=== PATIENT | female | born 1960 | race Two or more races ===

== ENCOUNTER 2016-09-24 02:25 | Inpatient (IN) | payer MEDICAID ==
[~2016-09-24] VITALS: Ht 162.6 cm; Wt 71.0 kg
[2016-09-24] VITALS (8 sets, daily range): BP systolic 97–122; BP diastolic 60–81
[2016-09-24] MEDS ORDERED: NITROGLYCERIN 0.4 MG SL TAB SL PRN ×2 (03:45→06:45)
[2016-09-24] MEDS ORDERED: ASPirin 81 mg TAB PO ONE (03:45)
[2016-09-24] MEDS ORDERED: MORPHINE SULF INJ 2 MG/ML SYRINGE 1ML IV ONE (03:45)
[2016-09-24] MEDS ORDERED: MORPHINE SULFATE 4 MG/ML SYRG IV ONE ×2 (03:45)
[2016-09-24 03:57] LABS: Basophils # (auto) 0 uL; Basophils % (auto) 0.6 % (0.0-2.0); DEFINITIVE VIEW TRANSMISSION; Eosinophils # (auto) 0.2 uL; Eosinophils % (auto) 3.7 % (0.0-7.0); Hematocrit 25.8 % (36.0-46.0); Hemoglobin 8.2 g/dL (12.2-16.2); Lymphocytes % (auto) 45.3 % (10.0-50.0); Mean Corpuscular Hemoglobin 24.9 pg (28.0-32.0); Mean Corpuscular Hgb Conc. 31.9 g/dL (32.0-36.0); Mean Platelet Volume 8.1 fL (7.4-10.4); Monocytes # (auto) 0.5 uL; Monocytes % (auto) 10.7 % (0.0-12.0); Neutrophils # (auto) 1.7 uL; Neutrophils % (auto) 39.7 % (37.0-80.0); Platelet Count (auto) 354 10^3/uL (140-450); White Blood Cell 4.4 10^3/uL (4.4-10.8)
[2016-09-24 03:59] LABS: Red Cell Distribution Width 21.4 % (11.6-16.0)
[2016-09-24 04:13] LABS: INR 0.9 (0.9-1.15); Partial Thromboplastin Time 25.9 sec (22.64-33.71); Prothrombin Time 9.8 sec (9.37-12.3)
[2016-09-24 04:20] LABS: Albumin 3.1 g/dL (3.4-5.0); Anion Gap 11 (5-15); Aspartate Aminotransferase 20 U/L (15-37); BUN/Creatinine Ratio 17.2; Blood Urea Nitrogen 21 mg/dL (7-18); Calcium 7.4 mg/dL (8.5-10.1); Carbon Dioxide 21 mmol/L (21-32); Chloride 112 mmol/L (98-107); GFR African American 59 mL/min; GFR Non-African American 49 mL/min; Glucose 80 mg/dL (74-106); Sodium 144 mmol/L (136-145)
[2016-09-24 04:22] LABS: Alkaline Phosphatase 74 U/L (45-117); Bilirubin, Total 0.3 mg/dL (0.2-1.0); Total Protein 6.4 g/dL (6.4-8.2)
[2016-09-24 04:32] LABS: B-Type Natriuretic Peptide 26.1 pg/mL (0-100); Temperature: 22.3 C (20.0-25.0)
[2016-09-24 04:34] LABS: Anisocytosis Slight; Hypochromia Moderate; Microcytosis Slight; Platelet Estimate Adequate
[2016-09-24] MEDS ORDERED: ONDANSETRON HCL 4 MG/2 ML VIAL IV ONE (05:00)
[2016-09-24] MEDS ORDERED: HYDROmorphone HCL 2 MG/ML VL IV ONE (05:00)
[2016-09-24] MEDS ORDERED: LEV100T PO (05:25)
[2016-09-24] MEDS ORDERED: ALPR1TAB7 PO (05:25)
[2016-09-24] MEDS ORDERED: METH2.5T3 PO (05:29)
[2016-09-24] MEDS ORDERED: diphenhdrAMINE HCL 50 MG/1 ML VL IV ONE (06:30)
[2016-09-24] MEDS ORDERED: MORPHINE SULF INJ 2 MG/ML SYRINGE 1ML IV PRN (06:45)
[2016-09-24] MEDS ORDERED: TEMAZEPAM 15 MG CAP PO PRN (06:45)
[2016-09-24] MEDS ORDERED: ACETAMINOPHEN 325 MG TAB PO PRN (06:45)
[2016-09-24] MEDS ORDERED: ONDANSETRON HCL 4 MG/2 ML VIAL IV PRN (06:45)
[2016-09-24] MEDS ORDERED: LEVOTHYROXINE SODIUM 100 MCG TAB PO SCH ×2 (07:00)
[2016-09-24] MEDS: SODIUM CHLORIDE 0.9% 1,000 ML IV SCH ×2 (07:06→22:14)
[2016-09-24] MEDS: LEVOTHYROXINE SODIUM 100 MCG TAB PO SCH (07:26)
[2016-09-24] MEDS ORDERED: FOLITAB22 PO (09:49)
[2016-09-24] MEDS ORDERED: ENOXAPARIN SOD 40 MG/0.4 ML SYRINGE SC SCH (10:00)
[2016-09-24 12:27] LABS: Hematocrit 26.8 % (36.0-46.0); Hemoglobin 8.5 g/dL (12.2-16.2)
[2016-09-24] MEDS: FAMOTIDINE 20 MG TAB PO SCH ×2 (15:27→21:45)
[2016-09-24] MEDS: ASPirin 81 mg TAB PO SCH (15:27)
[2016-09-24] MEDS: MORPHINE SULF INJ 2 MG/ML SYRINGE 1ML IV PRN (22:04)
[2016-09-25 05:00] VITALS: BP 90/56
[2016-09-25] MEDS: LEVOTHYROXINE SODIUM 100 MCG TAB PO SCH (06:26)
[2016-09-25 07:06] LABS: Basophils # (auto) 0 uL; Basophils % (auto) 0.5 % (0.0-2.0); DEFINITIVE VIEW TRANSMISSION; Eosinophils # (auto) 0.1 uL; Eosinophils % (auto) 3.7 % (0.0-7.0); Hematocrit 30.5 % (36.0-46.0); Hemoglobin 9.8 g/dL (12.2-16.2); Lymphocytes # (auto) 1.9 uL; Lymphocytes % (auto) 47.9 % (10.0-50.0); Mean Corpuscular Hemoglobin 25.7 pg (28.0-32.0); Mean Corpuscular Hgb Conc. 32.2 g/dL (32.0-36.0); Mean Corpuscular Volume 79.7 fL (80.0-100.0); Mean Platelet Volume 8.3 fL (7.4-10.4); Monocytes # (auto) 0.3 uL; Neutrophils # (auto) 1.6 uL; Neutrophils % (auto) 40.9 % (37.0-80.0); Platelet Count (auto) 326 10^3/uL (140-450); White Blood Cell 3.9 10^3/uL (4.4-10.8)
[2016-09-25 07:16] LABS: Red Cell Distribution Width 20.5 % (11.6-16.0)
[2016-09-25 08:00] VITALS: BP 97/60
[2016-09-25 08:04] VITALS: BP 97/60
[2016-09-25 08:09] LABS: Albumin 3.3 g/dL (3.4-5.0); BUN/Creatinine Ratio 13.6; Bilirubin, Total 0.2 mg/dL (0.2-1.0); Calcium 7.9 mg/dL (8.5-10.1); Potassium 4.2 mmol/L (3.5-5.1); Total Protein 6.2 g/dL (6.4-8.2)
[2016-09-25 08:38] LABS: Anisocytosis Moderate; Burr Cells FEW; Hypochromia Moderate; Platelet Estimate Adequate; Tear Drop Cells FEW
[2016-09-25] MEDS: FAMOTIDINE 20 MG TAB PO SCH (10:00)
[2016-09-25] MEDS: ASPirin 81 mg TAB PO SCH (10:00)
[2016-09-25 11:35] VITALS: BP 128/78
[2016-09-25] MEDS ORDERED: DOCUSATE SOD 100 MG CAP PO ONE (13:00)
[2016-09-25] MEDS ORDERED: FERROUS SULFATE 325 MG TAB PO ONE (13:00)
[2016-09-25] MEDS: MORPHINE SULF INJ 2 MG/ML SYRINGE 1ML IV PRN (14:33)
[2016-09-25] MEDS: SODIUM CHLORIDE 0.9% 1,000 ML IV SCH (15:51)
[2016-09-25 16:19] VITALS: BP 101/71
[2016-09-25] MEDS ORDERED: FER325T PO (17:45)
[2016-09-25] MEDS ORDERED: DOCU100C8 PO (17:45)
[2016-09-25 18:28] VITALS: BP 101/71
[2016-09-25] MEDS ORDERED: DOCUSATE SOD 100 MG CAP PO SCH (22:00)
[2016-09-26] MEDS ORDERED: FERROUS SULFATE 325 MG TAB PO SCH (10:00)
== END 2016-09-25 19:48 | disposition home or self-care (01) | DRG 198 ==
LOC: ER 02:25 → EDBD 02:25 → TELE 02:26 → TELE-E-ADS 08:12 → TELE-CENTR 10:17
PROVIDERS: ADMIT Nurse Practitioner; ATTEND Nurse Practitioner Acute Care
PROC: 30233N1 Transfusion of Nonautologous Red Blood Cells into Peripheral Vein, Percutaneous Approach (ICD-10-PCS; principal; 2016-09-24)
DX: R07.9 Chest pain, unspecified (principal); I25.2 Old myocardial infarction; E44.1 Mild protein-calorie malnutrition; Z86.73 Personal history of transient ischemic attack (TIA), and cerebral infarction without residual deficits; E03.9 Hypothyroidism, unspecified; D50.9 Iron deficiency anemia, unspecified; G89.29 Other chronic pain; M06.9 Rheumatoid arthritis, unspecified; N18.9 Chronic kidney disease, unspecified; Z85.42 Personal history of malignant neoplasm of other parts of uterus; F41.9 Anxiety disorder, unspecified; Z88.8 Allergy status to other drugs, medicaments and biological substances; Z71.89 Other specified counseling; Z68.26 Body mass index [BMI] 26.0-26.9, adult; Z90.710 Acquired absence of both cervix and uterus
CPT/HCPCS: 36415; 36430; 71010; 78452; 80053; 82270; 82728; 83540; 83550; 83880; 84443; 84484; 84702; 85014; 85018; 85025; 85379; 85610; 85730; 86850; 86900; 86901; 86920; 93005; 93017; 93306; 96374; 96375; J2405

== ENCOUNTER 2017-07-08 15:33 | Emergency (ER) | payer MEDICAID ==
[~2017-07-08] VITALS: Ht 165.1 cm; Wt 68.9 kg
[~2017-07-08 15:33] MED LIST: ALPR1TAB7 PO; DOCU100C8 PO; FER325T PO; FOLITAB22 PO; LEV100T PO; METH2.5T3 PO
[2017-07-08 15:45] VITALS: BP 112/76
== END 2017-07-08 16:58 | disposition left against medical advice (07) ==
LOC: ER 15:38
DX: R06.02 Shortness of breath (principal); Z53.21 Procedure and treatment not carried out due to patient leaving prior to being seen by health care provider
CPT/HCPCS: 93005

== ENCOUNTER 2021-12-21 11:50 | Inpatient (IN) | payer MEDICAID ==
[~2021-12-21] VITALS: Ht 165.1 cm; Wt 73.7 kg
[~2021-12-21 11:50] MED LIST changes: +DOCU100C10 PO; -DOCU100C8 PO; +METH2.5T PO; -METH2.5T3 PO
[2021-12-21] MEDS ORDERED: SODIUM CHLORIDE 0.9% 2,000 ML IV ONE (12:30)
[2021-12-21 12:43] LABS: Basophils # (auto) 0 10 ^3/uL (0-0.2); Basophils % (auto) 0.1 % (0.0-2.0); Eosinophils # (auto) 0 10 ^3/uL (0-0.8); White Blood Cell 12.8 10^3/uL (4.4-10.8)
[2021-12-21] MEDS ORDERED: NOREPINEPHRINE 8 MG/250ML KIT 250 ML IV ONE (12:47)
[2021-12-21 12:49] LABS: Hematocrit 25.8 % (36.0-46.0); Hemoglobin 7.8 g/dL (12.2-16.2); Lymphocytes # (auto) 0.7 10 ^3/uL (0.4-5.4); Lymphocytes % (auto) 5.8 % (10.0-50.0); Mean Corpuscular Hemoglobin 29.3 pg (28.0-32.0); Mean Corpuscular Hgb Conc. 30.3 g/dL (32.0-36.0); Mean Corpuscular Volume 96.7 fL (80.0-100.0); Monocytes # (auto) 1.3 10 ^3/uL (0-1.3); Monocytes % (auto) 10.4 % (0.0-12.0); Neutrophils # (auto) 10.7 10 ^3/uL (1.6-8.6); Neutrophils % (auto) 83.7 % (37.0-80.0); Red Blood Cells 2.67 10^6/uL (4.0-5.20); Red Cell Distribution Width 17.5 % (11.8-14.3)
[2021-12-21 12:57] LABS: Albumin 2.2 g/dL (3.4-5.0); Calcium 6.6 mg/dL (8.5-10.1); INR 1.38 (0.9-1.15); Magnesium 2.3 mg/dL (1.6-2.6); Potassium 5.3 mmol/L (3.5-5.1)
[2021-12-21 12:59] LABS: BUN/Creatinine Ratio 25.4
[2021-12-21] MEDS: NOREPINEPHRINE 8 MG/250ML KIT 250 ML IV SCH (12:59)
[2021-12-21 13:02] LABS: Bilirubin, Total 0.5 mg/dL (0.2-1.0); Lactic Acid w/Reflex 2.5 mmol/L (0.4-2.0); Total Protein 3.9 g/dL (6.4-8.2)
[2021-12-21] MEDS ORDERED: SODIUM CHLORIDE 0.9% 1,000 ML IV ONE (14:45)
[2021-12-21] MEDS ORDERED: CALCIUM GLUC 1,000mg/50ml-NS 50 ML IV ONE (14:45)
[2021-12-21] MEDS ORDERED: InsuLIN REG 1unit/0.01ml Soln (100units/ml) IV ONE (14:45)
[2021-12-21] MEDS ORDERED: DEXTROSE (50%) 50ML SYRG IV ONE (14:45)
[2021-12-21] MEDS ORDERED: SODIUM BICARBONATE 8.4 % INJ 50ML VIAL IV ONE (14:45)
[2021-12-21] MEDS ORDERED: LIDOCAINE 1% (LOCAL ANESTH.) PF 5ml SDV ID ONE (17:15)
[2021-12-21] MEDS ORDERED: DOCUSATE SOD 100 MG CAP PO PRN (17:30)
[2021-12-21] MEDS ORDERED: NITROGLYCERIN 0.4 MG SL TAB SL PRN (17:30)
[2021-12-21 17:47] VITALS: BP 86/66
[2021-12-21 18:03] VITALS: BP 92/52
[2021-12-21] MEDS: PHENYLEPHRINE IV 250 ML IV SCH (18:14)
[2021-12-21 19:14] VITALS: BP 112/73
[2021-12-21 19:38] LABS: Urine Bacteria FEW /hpf (None Seen); Urine Blood 2+ /uL (Negative); Urine Mucus FEW (None Seen); Urine WBC 1 /hpf (0 - 5)
[2021-12-21] MEDS: SODIUM CHLOR 0.9% PF (SALINE LOCK) 10ML VIAL/SYR IV SCH (22:00)
[2021-12-21 22:11] LABS: Basophils # (auto) 0 10 ^3/uL (0-0.2); Basophils % (auto) 0.2 % (0.0-2.0); Eosinophils # (auto) 0 10 ^3/uL (0-0.8); Eosinophils % (auto) 0.1 % (0.0-7.0); Hemoglobin 9.7 g/dL (12.2-16.2); Lymphocytes # (auto) 1.8 10 ^3/uL (0.4-5.4); Red Blood Cells 3.33 10^6/uL (4.0-5.20); White Blood Cell 15.8 10^3/uL (4.4-10.8)
[2021-12-21 22:13] LABS: Hematocrit 31.6 % (36.0-46.0); Lymphocytes % (auto) 11.1 % (10.0-50.0); Mean Corpuscular Hgb Conc. 30.6 g/dL (32.0-36.0); Mean Corpuscular Volume 94.8 fL (80.0-100.0); Monocytes % (auto) 6.5 % (0.0-12.0); Neutrophils % (auto) 82.1 % (37.0-80.0); Red Cell Distribution Width 17.2 % (11.8-14.3)
[2021-12-21 22:44] LABS: Free T3 2.14 pg/mL (2.3-4.2); Free T4 (Free Thyroxine) 0.45 ng/dL (0.89-1.76)
[2021-12-22] VITALS (64 sets, daily range): BP systolic 85–124; BP diastolic 42–84
[2021-12-22] MEDS: PHENYLEPHRINE IV 250 ML IV SCH ×3 (01:25→18:30)
[2021-12-22 01:34] LABS: Albumin 2.3 g/dL (3.4-5.0); BUN/Creatinine Ratio 32.5; Potassium 4.2 mmol/L (3.5-5.1)
[2021-12-22 01:37] LABS: Bilirubin, Total 0.6 mg/dL (0.2-1.0); Total Protein 4.3 g/dL (6.4-8.2)
[2021-12-22] MEDS ORDERED: cefTRIAXone 1GM/50ML D5W 50 ML IV ONE (03:45)
[2021-12-22 06:43] LABS: Basophils # (auto) 0 10 ^3/uL (0-0.2); Basophils % (auto) 0.2 % (0.0-2.0); Eosinophils # (auto) 0 10 ^3/uL (0-0.8); Eosinophils % (auto) 0.2 % (0.0-7.0); Hematocrit 29.7 % (36.0-46.0); Hemoglobin 9.3 g/dL (12.2-16.2); Lymphocytes # (auto) 1.8 10 ^3/uL (0.4-5.4); Lymphocytes % (auto) 10.8 % (10.0-50.0); Mean Corpuscular Hemoglobin 29.1 pg (28.0-32.0); Mean Corpuscular Hgb Conc. 31.3 g/dL (32.0-36.0); Mean Corpuscular Volume 93.1 fL (80.0-100.0); Monocytes # (auto) 1.3 10 ^3/uL (0-1.3); Monocytes % (auto) 7.9 % (0.0-12.0); Neutrophils # (auto) 13.3 10 ^3/uL (1.6-8.6); Neutrophils % (auto) 80.9 % (37.0-80.0); Red Blood Cells 3.19 10^6/uL (4.0-5.20); Red Cell Distribution Width 17.4 % (11.8-14.3); White Blood Cell 16.4 10^3/uL (4.4-10.8)
[2021-12-22 07:00] LABS: BUN/Creatinine Ratio 34.5; Calcium 6.8 mg/dL (8.5-10.1); Potassium 3.8 mmol/L (3.5-5.1)
[2021-12-22 07:03] LABS: Bilirubin, Total 0.5 mg/dL (0.2-1.0)
[2021-12-22] MEDS ORDERED: GASTROGRAFIN 120 ML SOL ONE (09:15)
[2021-12-22] MEDS: NOREPINEPHRINE 8 MG/250ML KIT 250 ML IV SCH ×2 (09:52→15:54)
[2021-12-22] MEDS: SODIUM CHLOR 0.9% PF (SALINE LOCK) 10ML VIAL/SYR IV SCH ×2 (09:52→22:34)
[2021-12-22] MEDS ORDERED: SODIUM CHLORIDE 0.9% 1,000 ML IV SCH (12:00)
[2021-12-22] MEDS: MORPHINE SULFATE INJ 2 MG/ml SYRG IV PRN ×2 (12:49→22:15)
[2021-12-22] MEDS ORDERED: ACETAMINOPHEN IV 1000 MG/100ML (10MG/ML) IV ONE (13:30)
[2021-12-22] MEDS ORDERED: PIPERACILLIN-TAZOB 3.375GM 100 ML IV SCH (14:00)
[2021-12-22] MEDS ORDERED: HYDROmorphone HCL 2 MG/ML VL/or syr IV ONE (17:15)
[2021-12-22] MEDS: PIPERACILLIN-TAZOB 2.25GM 50 ML IV SCH ×2 (17:24→23:30)
[2021-12-22] MEDS: D5W/SOD CHL 0.45% 1,000 ML IV SCH (17:24)
[2021-12-23] VITALS (92 sets, daily range): BP systolic 85–114; BP diastolic 44–78
[2021-12-23] MEDS: NOREPINEPHRINE 8 MG/250ML KIT 250 ML IV SCH (01:19)
[2021-12-23] MEDS: PHENYLEPHRINE IV 250 ML IV SCH ×3 (02:50→14:57)
[2021-12-23] MEDS: MORPHINE SULFATE INJ 2 MG/ml SYRG IV PRN ×3 (03:51→20:13)
[2021-12-23] MEDS: D5W/SOD CHL 0.45% 1,000 ML IV SCH ×2 (03:52→13:15)
[2021-12-23 04:08] LABS: Basophils # (auto) 0 10 ^3/uL (0-0.2); Basophils % (auto) 0.4 % (0.0-2.0); Eosinophils # (auto) 0.1 10 ^3/uL (0-0.8); Eosinophils % (auto) 0.9 % (0.0-7.0); Hemoglobin 8.7 g/dL (12.2-16.2); Lymphocytes # (auto) 1.6 10 ^3/uL (0.4-5.4); Lymphocytes % (auto) 17.2 % (10.0-50.0); Mean Corpuscular Hemoglobin 29.6 pg (28.0-32.0); Mean Corpuscular Hgb Conc. 32.2 g/dL (32.0-36.0); Mean Corpuscular Volume 91.7 fL (80.0-100.0); Monocytes # (auto) 0.6 10 ^3/uL (0-1.3); Monocytes % (auto) 6.3 % (0.0-12.0); Neutrophils % (auto) 75.2 % (37.0-80.0); Nucleated Red Blood Cells % 0.1 %; Red Blood Cells 2.94 10^6/uL (4.0-5.20); Red Cell Distribution Width 17.4 % (11.8-14.3); White Blood Cell 9.3 10^3/uL (4.4-10.8)
[2021-12-23 04:13] LABS: Calcium 7.4 mg/dL (8.5-10.1); Potassium 3.6 mmol/L (3.5-5.1)
[2021-12-23 04:17] LABS: BUN/Creatinine Ratio 38.2
[2021-12-23] MEDS: PIPERACILLIN-TAZOB 2.25GM 50 ML IV SCH ×4 (05:52→23:51)
[2021-12-23] MEDS: SODIUM CHLOR 0.9% PF (SALINE LOCK) 10ML VIAL/SYR IV SCH ×2 (07:18→23:13)
[2021-12-23] MEDS ORDERED: SPIR25TA8 PO (09:52)
[2021-12-23] MEDS ORDERED: METO25TA93 PO (09:52)
[2021-12-23] MEDS ORDERED: APIX5TAB PO (09:52)
[2021-12-23] MEDS ORDERED: PERCOT GT (09:52)
[2021-12-23] MEDS ORDERED: PREG-111 PO (09:52)
[2021-12-23] MEDS ORDERED: MIRT-66 OR (09:52)
[2021-12-23] MEDS ORDERED: LEV88T GT (09:52)
[2021-12-23] MEDS ORDERED: FURO20TA3 PO (09:52)
[2021-12-23] MEDS ORDERED: DICL50TA4 PO (10:07)
[2021-12-23] MEDS: ONDANSETRON HCL 4 MG/2 ML VIAL IV PRN (14:13)
[2021-12-23] MEDS: D5W 5% 1,000 ML IV SCH (18:43)
[2021-12-23] MEDS: APIXABAN 5 MG TAB PO SCH ×2 (21:30→23:06)
[2021-12-24] VITALS (39 sets, daily range): BP systolic 83–116; BP diastolic 47–75
[2021-12-24] MEDS ORDERED: ACETAMINOPHEN 325 MG TAB PO PRN (00:15)
[2021-12-24] MEDS: MORPHINE SULFATE INJ 2 MG/ml SYRG IV PRN ×3 (00:32→20:41)
[2021-12-24] MEDS: PHENYLEPHRINE IV 250 ML IV SCH (03:50)
[2021-12-24 03:52] LABS: Basophils # (auto) 0 10 ^3/uL (0-0.2); Eosinophils # (auto) 0.1 10 ^3/uL (0-0.8); Lymphocytes # (auto) 1.7 10 ^3/uL (0.4-5.4); Monocytes # (auto) 0.3 10 ^3/uL (0-1.3)
[2021-12-24 03:53] LABS: Basophils % (auto) 0.2 % (0.0-2.0); Eosinophils % (auto) 2.1 % (0.0-7.0); Hematocrit 23.1 % (36.0-46.0); Hemoglobin 7.6 g/dL (12.2-16.2); Lymphocytes % (auto) 30.8 % (10.0-50.0); Mean Corpuscular Hemoglobin 30.4 pg (28.0-32.0); Monocytes % (auto) 4.8 % (0.0-12.0); Neutrophils # (auto) 3.5 10 ^3/uL (1.6-8.6); Neutrophils % (auto) 62.1 % (37.0-80.0); Red Blood Cells 2.51 10^6/uL (4.0-5.20); Red Cell Distribution Width 17.2 % (11.8-14.3); White Blood Cell 5.7 10^3/uL (4.4-10.8)
[2021-12-24 04:10] LABS: BUN/Creatinine Ratio 17.6; Calcium 7.1 mg/dL (8.5-10.1); Potassium 3.2 mmol/L (3.5-5.1)
[2021-12-24] MEDS: PIPERACILLIN-TAZOB 2.25GM 50 ML IV SCH ×4 (06:42→23:56)
[2021-12-24] MEDS: LEVOTHYROXINE SODIUM 88 MCG TAB PO SCH (06:42)
[2021-12-24] MEDS: ONDANSETRON HCL 4 MG/2 ML VIAL IV PRN (08:15)
[2021-12-24] MEDS: D5W 5% 1,000 ML IV SCH ×2 (08:17→21:34)
[2021-12-24] MEDS: SODIUM CHLOR 0.9% PF (SALINE LOCK) 10ML VIAL/SYR IV SCH ×2 (09:39→21:45)
[2021-12-24 12:08] LABS: Basophils # (auto) 0 10 ^3/uL (0-0.2); Eosinophils # (auto) 0.1 10 ^3/uL (0-0.8); Lymphocytes # (auto) 1.4 10 ^3/uL (0.4-5.4); Monocytes # (auto) 0.2 10 ^3/uL (0-1.3); Nucleated Red Blood Cells % 0.1 %; Red Cell Distribution Width 17.4 % (11.8-14.3); White Blood Cell 5.8 10^3/uL (4.4-10.8)
[2021-12-24 12:10] LABS: Basophils % (auto) 0.2 % (0.0-2.0); Eosinophils % (auto) 1.1 % (0.0-7.0); Hematocrit 25.1 % (36.0-46.0); Hemoglobin 7.9 g/dL (12.2-16.2); Lymphocytes % (auto) 23.6 % (10.0-50.0); Mean Corpuscular Hemoglobin 29.2 pg (28.0-32.0); Mean Corpuscular Hgb Conc. 31.5 g/dL (32.0-36.0); Mean Corpuscular Volume 92.4 fL (80.0-100.0); Monocytes % (auto) 3.6 % (0.0-12.0); Neutrophils # (auto) 4.2 10 ^3/uL (1.6-8.6); Neutrophils % (auto) 71.5 % (37.0-80.0); Red Blood Cells 2.71 10^6/uL (4.0-5.20)
[2021-12-24] MEDS ORDERED: POTASSIUM CHL 20MEQ/100ML 100 ML IV ONE (15:00)
[2021-12-24 20:05] LABS: Basophils # (auto) 0 10 ^3/uL (0-0.2); Basophils % (auto) 0.4 % (0.0-2.0); Hematocrit 26.2 % (36.0-46.0); Hemoglobin 8.3 g/dL (12.2-16.2); Lymphocytes # (auto) 1.5 10 ^3/uL (0.4-5.4); Mean Corpuscular Hgb Conc. 31.6 g/dL (32.0-36.0); Monocytes # (auto) 0.2 10 ^3/uL (0-1.3); Neutrophils # (auto) 2.6 10 ^3/uL (1.6-8.6)
[2021-12-24 20:07] LABS: Eosinophils # (auto) 0.1 10 ^3/uL (0-0.8); Eosinophils % (auto) 1.6 % (0.0-7.0); Lymphocytes % (auto) 34.7 % (10.0-50.0); Mean Corpuscular Volume 91.8 fL (80.0-100.0); Monocytes % (auto) 3.7 % (0.0-12.0); Neutrophils % (auto) 59.6 % (37.0-80.0); Nucleated Red Blood Cells % 0.2 %; Red Blood Cells 2.85 10^6/uL (4.0-5.20); Red Cell Distribution Width 17.5 % (11.8-14.3); White Blood Cell 4.3 10^3/uL (4.4-10.8)
[2021-12-25 01:11] LABS: Basophils # (auto) 0 10 ^3/uL (0-0.2); Basophils % (auto) 0.5 % (0.0-2.0); Eosinophils # (auto) 0.1 10 ^3/uL (0-0.8); Monocytes # (auto) 0.2 10 ^3/uL (0-1.3); Neutrophils # (auto) 2.6 10 ^3/uL (1.6-8.6)
[2021-12-25 01:12] LABS: Eosinophils % (auto) 1.7 % (0.0-7.0); Hematocrit 24.6 % (36.0-46.0); Lymphocytes # (auto) 1.6 10 ^3/uL (0.4-5.4); Lymphocytes % (auto) 35.4 % (10.0-50.0); Mean Corpuscular Hemoglobin 29.9 pg (28.0-32.0); Mean Corpuscular Hgb Conc. 32.4 g/dL (32.0-36.0); Mean Corpuscular Volume 92.1 fL (80.0-100.0); Neutrophils % (auto) 57.4 % (37.0-80.0); Red Blood Cells 2.67 10^6/uL (4.0-5.20); Red Cell Distribution Width 17.7 % (11.8-14.3); White Blood Cell 4.5 10^3/uL (4.4-10.8)
[2021-12-25] MEDS: MORPHINE SULFATE INJ 2 MG/ml SYRG IV PRN ×2 (02:34→08:35)
[2021-12-25] MEDS: ONDANSETRON HCL 4 MG/2 ML VIAL IV PRN (02:47)
[2021-12-25 05:00] VITALS: BP 105/63
[2021-12-25] MEDS: PIPERACILLIN-TAZOB 2.25GM 50 ML IV SCH (06:44)
[2021-12-25] MEDS: LEVOTHYROXINE SODIUM 88 MCG TAB PO SCH (06:45)
[2021-12-25] MEDS: APIXABAN 5 MG TAB PO SCH (08:33)
[2021-12-25] MEDS: SODIUM CHLOR 0.9% PF (SALINE LOCK) 10ML VIAL/SYR IV SCH (08:33)
[2021-12-25 09:00] VITALS: BP 97/63
[2021-12-25] MEDS: D5W 5% 1,000 ML IV SCH (10:48)
[2021-12-25 12:58] VITALS: BP 94/67
[2021-12-25 13:00] VITALS: BP 94/67
[2021-12-25 13:59] LABS: Potassium 3.6 mmol/L (3.5-5.1)
[2021-12-25 14:04] LABS: BUN/Creatinine Ratio 7.2; Calcium 7.3 mg/dL (8.5-10.1)
== END 2021-12-25 14:50 | disposition home or self-care (01) | DRG 247 ==
LOC: ER 11:50 → EDBD 11:50 → TELE 17:31 → ICU WEST 12-22 07:50 → TELE-WESTW 12-24 17:31
PROVIDERS: ADMIT Nurse Practitioner Family; ATTEND Internal Medicine
PROC: 02HV33Z Insertion of Infusion Device into Superior Vena Cava, Percutaneous Approach (ICD-10-PCS; principal; 2021-12-21)
PROC: B548ZZA Ultrasonography of Superior Vena Cava, Guidance (ICD-10-PCS; 2021-12-21)
PROC: 30233N1 Transfusion of Nonautologous Red Blood Cells into Peripheral Vein, Percutaneous Approach (ICD-10-PCS; 2021-12-21)
DX: K56.600 Partial intestinal obstruction, unspecified as to cause (principal); N17.0 Acute kidney failure with tubular necrosis; J96.01 Acute respiratory failure with hypoxia; I95.9 Hypotension, unspecified; I50.9 Heart failure, unspecified; E87.0 Hyperosmolality and hypernatremia; E87.2 Acidosis; E87.5 Hyperkalemia; N39.0 Urinary tract infection, site not specified; E86.1 Hypovolemia; E88.09 Other disorders of plasma-protein metabolism, not elsewhere classified; N18.9 Chronic kidney disease, unspecified; D64.9 Anemia, unspecified; E86.0 Dehydration; E87.6 Hypokalemia; E03.9 Hypothyroidism, unspecified; Z20.822 Contact with and (suspected) exposure to COVID-19; R40.0 Somnolence; M06.9 Rheumatoid arthritis, unspecified; F41.9 Anxiety disorder, unspecified; I25.10 Atherosclerotic heart disease of native coronary artery without angina pectoris; I25.2 Old myocardial infarction; Z82.49 Family history of ischemic heart disease and other diseases of the circulatory system; Z82.5 Family history of asthma and other chronic lower respiratory diseases; Z83.3 Family history of diabetes mellitus; Z86.718 Personal history of other venous thrombosis and embolism; Z86.73 Personal history of transient ischemic attack (TIA), and cerebral infarction without residual deficits; Z90.49 Acquired absence of other specified parts of digestive tract; Z90.710 Acquired absence of both cervix and uterus; Z98.82 Breast implant status; Z98.84 Bariatric surgery status; Z88.5 Allergy status to narcotic agent
CPT/HCPCS: 36415; 36430; 36569; 70450; 71045; 74176; 74250; 80048; 80053; 81001; 82140; 82962; 83605; 83735; 84439; 84443; 84481; 84484; 85025; 85610; 85730; 86850; 86900; 86901; 86920; 87040; 87081; 87086; 93005; 93306; 96365; 96366; 96367; 96375; 99291; G0378; J0131; J0696; J1815; J2405; J2543; J3480

== ENCOUNTER 2021-12-31 12:44 | Inpatient (IN) | payer MEDICAID ==
[2021-12-31] VITALS (12 sets, daily range): BP systolic 89–129; BP diastolic 35–106
[~2021-12-31] VITALS: Ht 170.2 cm; Wt 76.8 kg
[~2021-12-31 12:44] MED LIST changes: +APIX5TAB PO; +DICL50TA4 PO; -FOLITAB22 PO; +FURO20TA3 PO; -LEV100T PO; +LEV88T GT; +METO25TA93 PO; +MIRT-66 OR; +PERCOT GT; +PREG-111 PO; +SPIR25TA8 PO
[2021-12-31] MEDS ORDERED: ACCU-CHEK COMFORT CURVE STRIP VI ONE (14:00)
[2021-12-31 14:31] LABS: Basophils # (auto) 0 10 ^3/uL (0-0.2); Basophils % (auto) 0.1 % (0.0-2.0); Eosinophils # (auto) 0 10 ^3/uL (0-0.8); Hemoglobin 8.2 g/dL (12.2-16.2); Neutrophils % (auto) 83.9 % (37.0-80.0)
[2021-12-31 14:33] LABS: Eosinophils % (auto) 0.1 % (0.0-7.0); Hematocrit 26.9 % (36.0-46.0); Lymphocytes # (auto) 0.8 10 ^3/uL (0.4-5.4); Lymphocytes % (auto) 8.2 % (10.0-50.0); Mean Corpuscular Hemoglobin 29.7 pg (28.0-32.0); Mean Corpuscular Hgb Conc. 30.3 g/dL (32.0-36.0); Mean Corpuscular Volume 97.9 fL (80.0-100.0); Monocytes # (auto) 0.8 10 ^3/uL (0-1.3); Monocytes % (auto) 7.7 % (0.0-12.0); Neutrophils # (auto) 8.5 10 ^3/uL (1.6-8.6); Red Blood Cells 2.75 10^6/uL (4.0-5.20); Red Cell Distribution Width 19.7 % (11.8-14.3); White Blood Cell 10.1 10^3/uL (4.4-10.8)
[2021-12-31] MEDS ORDERED: NOREPINEPHRINE 8 MG/250ML KIT 250 ML IV ONE (14:33)
[2021-12-31] MEDS: NOREPINEPHRINE 8 MG/250ML KIT 250 ML IV SCH (14:38)
[2021-12-31 14:51] LABS: Albumin 1.6 g/dL (3.4-5.0); BUN/Creatinine Ratio 13.7; Calcium 6.6 mg/dL (8.5-10.1); Potassium 4.6 mmol/L (3.5-5.1)
[2021-12-31 14:54] LABS: Bilirubin, Total 0.4 mg/dL (0.2-1.0); Total Protein 3.8 g/dL (6.4-8.2)
[2021-12-31 15:22] LABS: Urine Bacteria MOD /hpf (None Seen); Urine Blood Negative /uL (Negative); Urine Hyaline Cast MANY /lpf (0 - 2); Urine Mucus FEW (None Seen); Urine Specific Gravity 1.017 (1.001-1.035); Urine WBC 3 /hpf (0 - 5)
[2021-12-31] MEDS ORDERED: DexAMETHasone SOD PHOS 4 MG/1ML SDV INJ IV ONE (16:00)
[2021-12-31] MEDS ORDERED: D5W/SOD CHLO 0.9% 1,000 ML IV ONE (16:00)
[2021-12-31] MEDS ORDERED: LEVOTHYROXINE SODIUM 100 MCG/5 ML INJ IV ONE (16:00)
[2021-12-31] MEDS ORDERED: SODIUM CHLORIDE 0.9% 1,000 ML IV ONE (16:00)
[2021-12-31] MEDS ORDERED: NITROGLYCERIN 0.4 MG SL TAB SL PRN (18:00)
[2021-12-31] MEDS: PHENYLEPHRINE IV 250 ML IV SCH (18:01)
[2021-12-31] MEDS: SODIUM CHLORIDE 0.9% 1,000 ML IV SCH (18:57)
[2021-12-31 19:49] LABS: Protein, Urine 26.6 mg/dL (0.0-11.9)
[2021-12-31] MEDS: APIXABAN 5 MG TAB PO SCH (23:08)
[2022-01-01] VITALS (79 sets, daily range): BP systolic 46–156; BP diastolic 10–78
[2022-01-01] MEDS: NOREPINEPHRINE 8 MG/250ML KIT 250 ML IV SCH ×3 (00:08→20:36)
[2022-01-01] MEDS: PHENYLEPHRINE IV 250 ML IV SCH ×3 (01:35→18:15)
[2022-01-01 04:02] LABS: Basophils # (auto) 0 10 ^3/uL (0-0.2); Basophils % (auto) 0.1 % (0.0-2.0); Eosinophils # (auto) 0 10 ^3/uL (0-0.8); Hematocrit 25.8 % (36.0-46.0); Hemoglobin 8.1 g/dL (12.2-16.2); Lymphocytes # (auto) 1.1 10 ^3/uL (0.4-5.4); Lymphocytes % (auto) 15.2 % (10.0-50.0); Mean Corpuscular Hemoglobin 29.9 pg (28.0-32.0); Mean Corpuscular Hgb Conc. 31.6 g/dL (32.0-36.0); Mean Corpuscular Volume 94.9 fL (80.0-100.0); Monocytes # (auto) 0.8 10 ^3/uL (0-1.3); Neutrophils # (auto) 5.2 10 ^3/uL (1.6-8.6); Neutrophils % (auto) 73.7 % (37.0-80.0); Nucleated Red Blood Cells % 0.2 %; Red Blood Cells 2.72 10^6/uL (4.0-5.20); Red Cell Distribution Width 19.8 % (11.8-14.3)
[2022-01-01 04:20] LABS: Albumin 1.7 g/dL (3.4-5.0); Calcium 6.8 mg/dL (8.5-10.1); Potassium 4.6 mmol/L (3.5-5.1)
[2022-01-01 04:24] LABS: BUN/Creatinine Ratio 15.5; Bilirubin, Total 0.4 mg/dL (0.2-1.0); Total Protein 3.9 g/dL (6.4-8.2)
[2022-01-01] MEDS: SODIUM CHLORIDE 0.9% 1,000 ML IV SCH ×2 (04:29→14:17)
[2022-01-01] MEDS: LEVOTHYROXINE SODIUM 50 MCG TAB PO SCH (06:32)
[2022-01-01] MEDS: APIXABAN 5 MG TAB PO SCH (10:24)
[2022-01-01] MEDS: MORPHINE SULFATE INJ 2 MG/ml SYRG IV PRN (10:25)
[2022-01-01 11:23] LABS: Lactic Acid w/Reflex 3.9 mmol/L (0.4-2.0)
[2022-01-01] MEDS ORDERED: traMADol HCL 50 MG TAB PO PRN (13:30)
[2022-01-01] MEDS ORDERED: PANTOPRAZOLE 40 MG/10 ML VIAL INJ IV ONE (13:30)
[2022-01-01] MEDS ORDERED: cefTRIAXone 1GM/50ML D5W 50 ML IV ONE (13:45)
[2022-01-01] MEDS: ALBUMIN 25% 50 ML IV SCH ×2 (14:07→20:35)
[2022-01-01] MEDS: ONDANSETRON HCL 4 MG/2 ML VIAL IV PRN (19:45)
[2022-01-02] VITALS (86 sets, daily range): BP systolic 93–133; BP diastolic 45–90
[2022-01-02] MEDS: PHENYLEPHRINE IV 250 ML IV SCH ×3 (02:35→19:15)
[2022-01-02] MEDS: MORPHINE SULFATE INJ 2 MG/ml SYRG IV PRN ×2 (03:52→09:53)
[2022-01-02 04:32] LABS: Basophils # (auto) 0 10 ^3/uL (0-0.2); Eosinophils # (auto) 0 10 ^3/uL (0-0.8); Neutrophils # (auto) 1.3 10 ^3/uL (1.6-8.6)
[2022-01-02 04:36] LABS: Basophils % (auto) 0.6 % (0.0-2.0); Eosinophils % (auto) 1.2 % (0.0-7.0); Hematocrit 21.8 % (36.0-46.0); Lymphocytes # (auto) 1.7 10 ^3/uL (0.4-5.4); Lymphocytes % (auto) 48.8 % (10.0-50.0); Mean Corpuscular Hemoglobin 29.9 pg (28.0-32.0); Mean Corpuscular Hgb Conc. 31.9 g/dL (32.0-36.0); Mean Corpuscular Volume 93.7 fL (80.0-100.0); Monocytes # (auto) 0.4 10 ^3/uL (0-1.3); Monocytes % (auto) 12.8 % (0.0-12.0); Neutrophils % (auto) 36.6 % (37.0-80.0); Nucleated Red Blood Cells % 0.1 %; Red Blood Cells 2.32 10^6/uL (4.0-5.20); White Blood Cell 3.5 10^3/uL (4.4-10.8)
[2022-01-02 04:44] LABS: INR 1.1 (0.9-1.15); Partial Thromboplastin Time 35.3 sec (24.6-33.4)
[2022-01-02 04:50] LABS: Calcium 6.9 mg/dL (8.5-10.1); Potassium 3.9 mmol/L (3.5-5.1)
[2022-01-02] MEDS: ALBUMIN 25% 50 ML IV SCH (04:52)
[2022-01-02] MEDS: NOREPINEPHRINE 8 MG/250ML KIT 250 ML IV SCH (05:35)
[2022-01-02] MEDS: LEVOTHYROXINE SODIUM 50 MCG TAB PO SCH (06:03)
[2022-01-02] MEDS: SODIUM CHLORIDE 0.9% 1,000 ML IV SCH (08:24)
[2022-01-02] MEDS ORDERED: LIDOCAINE 1% (LOCAL ANESTH.) PF 5ml SDV ID ONE (11:15)
[2022-01-02] MEDS ORDERED: HYDROCORTISONE SOD SUCC 100 MG/2ML INJ VIAL IV ONE (12:15)
[2022-01-02] MEDS ORDERED: SODIUM FERR GLUC 62.5MG/5ML 125 MG in SODIUM CHL 0.9% 100 ML IV ONE (12:15)
[2022-01-02] MEDS: cefTRIAXone 1GM/50ML D5W 50 ML IV SCH (12:17)
[2022-01-02] MEDS: PANTOPRAZOLE 40 MG/10 ML VIAL INJ IV SCH (12:17)
[2022-01-02] MEDS: SOD CHL 0.45% 1,000 ML IV SCH (13:27)
[2022-01-02] MEDS: OXYCODONE W/ ACETAMINOPHEN 5/325MG TABLET PO PRN (15:42)
[2022-01-02] MEDS ORDERED: OXYCODONE W/ ACETAMINOPHEN 5/325MG TABLET PO ONE (18:00)
[2022-01-02] MEDS: ONDANSETRON HCL 4 MG/2 ML VIAL IV PRN (20:53)
[2022-01-02] MEDS: SODIUM CHLOR 0.9% PF (SALINE LOCK) 10ML VIAL/SYR IV SCH (21:18)
[2022-01-02] MEDS: HYDROCORTISONE SOD SUCC 100 MG/2ML INJ VIAL IV SCH (21:18)
[2022-01-02] MEDS ORDERED: KETOROLAC TROMETH 30 MG/ML 1ML VIAL IV ONE (21:30)
[2022-01-03] VITALS (83 sets, daily range): BP systolic 77–124; BP diastolic 48–88
[2022-01-03] MEDS: OXYCODONE W/ ACETAMINOPHEN 5/325MG TABLET PO PRN ×2 (03:11→19:56)
[2022-01-03] MEDS: PHENYLEPHRINE IV 250 ML IV SCH ×3 (03:35→20:15)
[2022-01-03] MEDS: LEVOTHYROXINE SODIUM 50 MCG TAB PO SCH (06:35)
[2022-01-03 07:16] LABS: Basophils # (auto) 0 10 ^3/uL (0-0.2); Basophils % (auto) 0.2 % (0.0-2.0); Eosinophils # (auto) 0 10 ^3/uL (0-0.8); Hematocrit 27.2 % (36.0-46.0); Hemoglobin 8.9 g/dL (12.2-16.2); Lymphocytes # (auto) 0.7 10 ^3/uL (0.4-5.4); Lymphocytes % (auto) 28.1 % (10.0-50.0); Mean Corpuscular Hemoglobin 29.7 pg (28.0-32.0); Mean Corpuscular Hgb Conc. 32.6 g/dL (32.0-36.0); Mean Corpuscular Volume 90.9 fL (80.0-100.0); Monocytes # (auto) 0.1 10 ^3/uL (0-1.3); Monocytes % (auto) 3.2 % (0.0-12.0); Neutrophils # (auto) 1.7 10 ^3/uL (1.6-8.6); Neutrophils % (auto) 68.5 % (37.0-80.0); Nucleated Red Blood Cells % 0.3 %; White Blood Cell 2.5 10^3/uL (4.4-10.8)
[2022-01-03 07:46] LABS: Calcium 7.2 mg/dL (8.5-10.1)
[2022-01-03] MEDS: NOREPINEPHRINE 8 MG/250ML KIT 250 ML IV SCH (08:30)
[2022-01-03 08:33] LABS: Potassium 4.3 mmol/L (3.5-5.1)
[2022-01-03] MEDS: PANTOPRAZOLE 40 MG/10 ML VIAL INJ IV SCH ×3 (09:43→21:36)
[2022-01-03] MEDS: cefTRIAXone 1GM/50ML D5W 50 ML IV SCH (09:44)
[2022-01-03] MEDS: HYDROCORTISONE SOD SUCC 100 MG/2ML INJ VIAL IV SCH ×2 (09:44→21:36)
[2022-01-03] MEDS: SODIUM CHLOR 0.9% PF (SALINE LOCK) 10ML VIAL/SYR IV SCH ×2 (09:45→21:36)
[2022-01-03] MEDS: SOD CHL 0.45% 1,000 ML IV SCH (11:48)
[2022-01-03] MEDS: SODIUM FERR GLUC 62.5MG/5ML 125 MG in SODIUM CHL 0.9% 100 ML IV SCH (12:40)
[2022-01-03] MEDS ORDERED: FUROSEMIDE 20 MG/2 ML VIAL IV ONE (15:30)
[2022-01-03] MEDS: ALPRAZolam 0.25 MG TAB PO PRN ×2 (15:45→21:36)
[2022-01-04] VITALS (83 sets, daily range): BP systolic 82–131; BP diastolic 48–90
[2022-01-04] MEDS: OXYCODONE W/ ACETAMINOPHEN 5/325MG TABLET PO PRN (04:04)
[2022-01-04] MEDS: PHENYLEPHRINE IV 250 ML IV SCH ×2 (04:35→12:55)
[2022-01-04 04:44] LABS: Basophils # (auto) 0 10 ^3/uL (0-0.2); Basophils % (auto) 0.1 % (0.0-2.0); Eosinophils # (auto) 0 10 ^3/uL (0-0.8); Hemoglobin 8.9 g/dL (12.2-16.2); Lymphocytes # (auto) 0.9 10 ^3/uL (0.4-5.4); Lymphocytes % (auto) 33.3 % (10.0-50.0); Mean Corpuscular Hemoglobin 30.4 pg (28.0-32.0); Mean Corpuscular Volume 92.1 fL (80.0-100.0); Monocytes # (auto) 0.2 10 ^3/uL (0-1.3); Monocytes % (auto) 6.1 % (0.0-12.0); Neutrophils # (auto) 1.6 10 ^3/uL (1.6-8.6); Neutrophils % (auto) 60.5 % (37.0-80.0); Nucleated Red Blood Cells % 0.1 %; Red Blood Cells 2.93 10^6/uL (4.0-5.20); Red Cell Distribution Width 19.3 % (11.8-14.3); White Blood Cell 2.7 10^3/uL (4.4-10.8)
[2022-01-04 04:45] LABS: BUN/Creatinine Ratio 17.1; Calcium 7.4 mg/dL (8.5-10.1); Potassium 4.5 mmol/L (3.5-5.1)
[2022-01-04] MEDS: LEVOTHYROXINE SODIUM 50 MCG TAB PO SCH (06:02)
[2022-01-04] MEDS: ALPRAZolam 0.25 MG TAB PO PRN ×3 (07:56→23:30)
[2022-01-04] MEDS: SODIUM CHLOR 0.9% PF (SALINE LOCK) 10ML VIAL/SYR IV SCH ×2 (10:00→21:42)
[2022-01-04] MEDS: cefTRIAXone 1GM/50ML D5W 50 ML IV SCH (10:30)
[2022-01-04] MEDS ORDERED: NALOXONE HCL 0.4 MG/ML VIAL ONE (11:00)
[2022-01-04] MEDS ORDERED: FLUMAZENIL 0.1 MG/ML INJ 10ML MDV IV ONE (11:00)
[2022-01-04] MEDS ORDERED: EPINEPHrine HCL 1 MG/1 ML AMP ONE (11:01)
[2022-01-04] MEDS: NOREPINEPHRINE 8 MG/250ML KIT 250 ML IV SCH ×2 (14:30→17:52)
[2022-01-04] MEDS: PANTOPRAZOLE 40 MG/10 ML VIAL INJ IV SCH ×2 (15:28→21:42)
[2022-01-04] MEDS ORDERED: LIDOCAINE VISCOUS 2% 15ML UD ONE (16:02)
[2022-01-04] MEDS: MIDAZOLAM HCL 5 MG/ML-1ML VIAL ONE ×2 (16:05→16:08)
[2022-01-04] MEDS: fentaNYL CITRATE 100 MCG/2 ML VL ONE ×2 (16:05→16:08)
[2022-01-04] MEDS: diphenhdrAMINE HCL 50 MG/1 ML VL ONE ×2 (16:07→16:08)
[2022-01-04] MEDS: SODIUM FERR GLUC 62.5MG/5ML 125 MG in SODIUM CHL 0.9% 100 ML IV SCH (17:00)
[2022-01-04] MEDS: SUCRALFATE 1 GM/10 ML ORAL SUSP PO SCH ×2 (17:03→21:43)
[2022-01-04] MEDS: MIDODRINE HCL 10 MG TAB PO SCH (17:04)
[2022-01-04] MEDS: HYDROCORTISONE SOD SUCC 100 MG/2ML INJ VIAL IV SCH (21:43)
[2022-01-05] VITALS (81 sets, daily range): BP systolic 89–132; BP diastolic 44–77
[2022-01-05 04:15] LABS: BUN/Creatinine Ratio 17.6; Calcium 7.5 mg/dL (8.5-10.1); Potassium 3.8 mmol/L (3.5-5.1)
[2022-01-05 04:19] LABS: Hematocrit 27.1 % (36.0-46.0); Hemoglobin 8.8 g/dL (12.2-16.2); Mean Corpuscular Hemoglobin 29.9 pg (28.0-32.0); Mean Corpuscular Hgb Conc. 32.5 g/dL (32.0-36.0); Mean Corpuscular Volume 92.1 fL (80.0-100.0); Red Blood Cells 2.94 10^6/uL (4.0-5.20); Red Cell Distribution Width 19.1 % (11.8-14.3); White Blood Cell 2.8 10^3/uL (4.4-10.8)
[2022-01-05 04:23] LABS: Basophils % (manual) 0 (0.0-2.0); Blast Cells 0; Eosinophils % (manual) 0 (0-7); Metamyelocytes % 0; Myelocytes % 0; Promyelocytes % 0; Reactive Lymphocytes 0
[2022-01-05 04:50] LABS: Band Neutrophils % (manual) 9; Lymphocytes % (manual) 16 (10.0-50.0); Monocytes % (manual) 1 (0-12)
[2022-01-05] MEDS: MIDODRINE HCL 10 MG TAB PO SCH ×3 (06:57→17:43)
[2022-01-05] MEDS: LEVOTHYROXINE SODIUM 50 MCG TAB PO SCH (06:57)
[2022-01-05] MEDS: SUCRALFATE 1 GM/10 ML ORAL SUSP PO SCH ×4 (06:57→20:19)
[2022-01-05] MEDS: ONDANSETRON HCL 4 MG/2 ML VIAL IV PRN (07:57)
[2022-01-05] MEDS: ALPRAZolam 0.25 MG TAB PO PRN ×2 (08:03→22:02)
[2022-01-05] MEDS: PANTOPRAZOLE 40 MG/10 ML VIAL INJ IV SCH (09:19)
[2022-01-05] MEDS: SODIUM CHLOR 0.9% PF (SALINE LOCK) 10ML VIAL/SYR IV SCH ×2 (09:19→22:04)
[2022-01-05] MEDS: HYDROCORTISONE SOD SUCC 100 MG/2ML INJ VIAL IV SCH ×2 (09:19→22:03)
[2022-01-05] MEDS: cefTRIAXone 1GM/50ML D5W 50 ML IV SCH (09:19)
[2022-01-05] MEDS ORDERED: FUROSEMIDE 20 MG TAB PO SCH ×2 (10:00→22:00)
[2022-01-05] MEDS: Ensure HIGH Protein Chocolate 8oz Bottle PO SCH ×2 (12:00→18:00)
[2022-01-05] MEDS: SODIUM FERR GLUC 62.5MG/5ML 125 MG in SODIUM CHL 0.9% 100 ML IV SCH (12:00)
[2022-01-05] MEDS: FUROSEMIDE 40 MG/4 ML VIAL IV SCH (17:42)
[2022-01-05] MEDS: PANTOPRAZOLE 40 MG TAB PO SCH (22:02)
[2022-01-05] MEDS: OXYCODONE W/ ACETAMINOPHEN 5/325MG TABLET PO PRN (22:30)
[2022-01-06] VITALS (78 sets, daily range): BP systolic 82–123; BP diastolic 41–78
[2022-01-06] MEDS: MIDODRINE HCL 10 MG TAB PO SCH ×3 (06:00→17:31)
[2022-01-06] MEDS: FUROSEMIDE 40 MG/4 ML VIAL IV SCH (06:00)
[2022-01-06] MEDS: SUCRALFATE 1 GM/10 ML ORAL SUSP PO SCH ×4 (07:00→21:49)
[2022-01-06] MEDS: LEVOTHYROXINE SODIUM 50 MCG TAB PO SCH (07:00)
[2022-01-06 07:59] LABS: Albumin 1.5 g/dL (3.4-5.0); BUN/Creatinine Ratio 16.7; Calcium 7.2 mg/dL (8.5-10.1); Potassium 3.2 mmol/L (3.5-5.1)
[2022-01-06 08:02] LABS: Bilirubin, Total 0.3 mg/dL (0.2-1.0); Total Protein 3.4 g/dL (6.4-8.2)
[2022-01-06 08:24] LABS: Basophils # (auto) 0 10 ^3/uL (0-0.2); Basophils % (auto) 0.1 % (0.0-2.0); Eosinophils # (auto) 0 10 ^3/uL (0-0.8); Eosinophils % (auto) 0.9 % (0.0-7.0); Hematocrit 27.9 % (36.0-46.0); Lymphocytes # (auto) 0.8 10 ^3/uL (0.4-5.4); Lymphocytes % (auto) 21.6 % (10.0-50.0); Mean Corpuscular Hemoglobin 29.7 pg (28.0-32.0); Mean Corpuscular Hgb Conc. 32.3 g/dL (32.0-36.0); Mean Corpuscular Volume 91.8 fL (80.0-100.0); Monocytes # (auto) 0.3 10 ^3/uL (0-1.3); Monocytes % (auto) 7.6 % (0.0-12.0); Neutrophils # (auto) 2.7 10 ^3/uL (1.6-8.6); Neutrophils % (auto) 69.8 % (37.0-80.0); Nucleated Red Blood Cells % 0.6 %; Red Blood Cells 3.03 10^6/uL (4.0-5.20); Red Cell Distribution Width 19.7 % (11.8-14.3); White Blood Cell 3.9 10^3/uL (4.4-10.8)
[2022-01-06] MEDS: Ensure HIGH Protein Chocolate 8oz Bottle PO SCH ×3 (08:24→18:00)
[2022-01-06] MEDS ORDERED: POTASSIUM EFFERVESENT TAB 25 MEQ PO ONE (09:00)
[2022-01-06] MEDS: cefTRIAXone 1GM/50ML D5W 50 ML IV SCH (09:29)
[2022-01-06] MEDS: SODIUM CHLOR 0.9% PF (SALINE LOCK) 10ML VIAL/SYR IV SCH ×2 (09:31→21:50)
[2022-01-06] MEDS: HYDROCORTISONE SOD SUCC 100 MG/2ML INJ VIAL IV SCH ×2 (09:31→21:48)
[2022-01-06] MEDS: PANTOPRAZOLE 40 MG TAB PO SCH ×2 (09:31→21:50)
[2022-01-06] MEDS: ONDANSETRON HCL 4 MG/2 ML VIAL IV PRN (09:54)
[2022-01-06] MEDS: ALPRAZolam 0.25 MG TAB PO PRN ×2 (10:00→22:07)
[2022-01-06] MEDS: SODIUM FERR GLUC 62.5MG/5ML 125 MG in SODIUM CHL 0.9% 100 ML IV SCH (11:35)
[2022-01-06] MEDS: NOREPINEPHRINE 8 MG/250ML KIT 250 ML IV SCH (14:30)
[2022-01-06] MEDS: OXYCODONE W/ ACETAMINOPHEN 5/325MG TABLET PO PRN (18:39)
[2022-01-06] MEDS: PHENYLEPHRINE IV 250 ML IV SCH (23:15)
[2022-01-07] VITALS (78 sets, daily range): BP systolic 75–119; BP diastolic 30–80
[2022-01-07 03:55] LABS: Hematocrit 23.3 % (36.0-46.0); Hemoglobin 7.8 g/dL (12.2-16.2); Mean Corpuscular Hemoglobin 30.7 pg (28.0-32.0); Mean Corpuscular Hgb Conc. 33.5 g/dL (32.0-36.0); Mean Corpuscular Volume 91.5 fL (80.0-100.0); Red Blood Cells 2.55 10^6/uL (4.0-5.20); Red Cell Distribution Width 19.4 % (11.8-14.3); White Blood Cell 3.2 10^3/uL (4.4-10.8)
[2022-01-07 03:58] LABS: Basophils % (manual) 0 (0.0-2.0); Blast Cells 0; Eosinophils % (manual) 0 (0-7); Metamyelocytes % 0; Myelocytes % 0; Promyelocytes % 0; Reactive Lymphocytes 0
[2022-01-07 04:03] LABS: Albumin 1.4 g/dL (3.4-5.0); Calcium 6.9 mg/dL (8.5-10.1)
[2022-01-07 04:06] LABS: BUN/Creatinine Ratio 21.4; Bilirubin, Total 0.2 mg/dL (0.2-1.0); Total Protein 3.1 g/dL (6.4-8.2)
[2022-01-07 04:33] LABS: Potassium 2.9 mmol/L (3.5-5.1)
[2022-01-07] MEDS: SUCRALFATE 1 GM/10 ML ORAL SUSP PO SCH ×4 (06:28→22:04)
[2022-01-07] MEDS: LEVOTHYROXINE SODIUM 50 MCG TAB PO SCH (06:28)
[2022-01-07] MEDS: MIDODRINE HCL 10 MG TAB PO SCH ×3 (06:28→18:00)
[2022-01-07 06:30] LABS: Band Neutrophils % (manual) 4; Lymphocytes % (manual) 27 (10.0-50.0); Monocytes % (manual) 5 (0-12)
[2022-01-07] MEDS ORDERED: POTASSIUM CHL 20MEQ/100ML 200 ML IV ONE (06:33)
[2022-01-07] MEDS: POTASSIUM CHL 20MEQ/100ML 100 ML IV SCH ×2 (07:19→08:00)
[2022-01-07] MEDS: OXYCODONE W/ ACETAMINOPHEN 5/325MG TABLET PO PRN ×2 (07:20→22:15)
[2022-01-07] MEDS: PHENYLEPHRINE IV 250 ML IV SCH ×2 (07:35→15:55)
[2022-01-07] MEDS: Ensure HIGH Protein Chocolate 8oz Bottle PO SCH ×3 (08:26→18:00)
[2022-01-07] MEDS: cefTRIAXone 1GM/50ML D5W 50 ML IV SCH (09:03)
[2022-01-07] MEDS: PANTOPRAZOLE 40 MG TAB PO SCH ×2 (09:49→22:05)
[2022-01-07] MEDS: HYDROCORTISONE SOD SUCC 100 MG/2ML INJ VIAL IV SCH ×2 (09:50→22:04)
[2022-01-07] MEDS: SODIUM CHLOR 0.9% PF (SALINE LOCK) 10ML VIAL/SYR IV SCH ×2 (10:00→21:58)
[2022-01-07] MEDS: SODIUM FERR GLUC 62.5MG/5ML 125 MG in SODIUM CHL 0.9% 100 ML IV SCH (12:37)
[2022-01-07] MEDS ORDERED: POTASSIUM CHLORIDE 40 MEQ, LIDOCAINE 1% (LOCAL ANESTH.) 4 ML in SODIUM CHL 0.9% 250 ML IV ONE (12:45)
[2022-01-07] MEDS ORDERED: LACTULOSE 20Gm/30ML SOLN PO ONE (12:45)
[2022-01-07] MEDS ORDERED: DOCUSATE SOD 100 MG CAP PO ONE (12:45)
[2022-01-07] MEDS: NOREPINEPHRINE 8 MG/250ML KIT 250 ML IV SCH (14:30)
[2022-01-07] MEDS: ALPRAZolam 0.25 MG TAB PO PRN (16:59)
[2022-01-07] MEDS: DOCUSATE SOD 100 MG CAP PO SCH (22:05)
[2022-01-07] MEDS: TEMAZEPAM 15 MG CAP PO PRN (22:07)
[2022-01-08] VITALS (29 sets, daily range): BP systolic 83–139; BP diastolic 46–83
[2022-01-08] MEDS: PHENYLEPHRINE IV 250 ML IV SCH ×2 (00:15→08:35)
[2022-01-08 04:24] LABS: Hemoglobin 7.3 g/dL (12.2-16.2); Red Blood Cells 2.42 10^6/uL (4.0-5.20)
[2022-01-08 04:26] LABS: Hematocrit 22.3 % (36.0-46.0); Mean Corpuscular Hemoglobin 30.2 pg (28.0-32.0); Mean Corpuscular Hgb Conc. 32.9 g/dL (32.0-36.0); Mean Corpuscular Volume 91.9 fL (80.0-100.0); White Blood Cell 3.1 10^3/uL (4.4-10.8)
[2022-01-08 04:39] LABS: Red Cell Distribution Width 20.1 % (11.8-14.3)
[2022-01-08 04:40] LABS: Basophils % (manual) 0 (0.0-2.0); Blast Cells 0; Eosinophils % (manual) 0 (0-7); Myelocytes % 0; Promyelocytes % 0; Reactive Lymphocytes 0
[2022-01-08 04:42] LABS: Magnesium 2.2 mg/dL (1.6-2.6); Potassium 3.9 mmol/L (3.5-5.1)
[2022-01-08 04:43] LABS: BUN/Creatinine Ratio 21.3
[2022-01-08 05:06] LABS: Ferritin 344.4 ng/mL (10-322)
[2022-01-08] MEDS: ALPRAZolam 0.25 MG TAB PO PRN ×2 (05:12→15:15)
[2022-01-08] MEDS: LEVOTHYROXINE SODIUM 50 MCG TAB PO SCH (06:28)
[2022-01-08] MEDS: MIDODRINE HCL 10 MG TAB PO SCH ×3 (06:28→17:46)
[2022-01-08] MEDS: SUCRALFATE 1 GM/10 ML ORAL SUSP PO SCH ×4 (06:28→22:14)
[2022-01-08 07:20] LABS: Band Neutrophils % (manual) 3; Lymphocytes % (manual) 13 (10.0-50.0); Metamyelocytes % 2; Monocytes % (manual) 6 (0-12)
[2022-01-08] MEDS: cefTRIAXone 1GM/50ML D5W 50 ML IV SCH (08:50)
[2022-01-08] MEDS: Ensure HIGH Protein Chocolate 8oz Bottle PO SCH ×3 (09:44→19:30)
[2022-01-08] MEDS: SODIUM CHLOR 0.9% PF (SALINE LOCK) 10ML VIAL/SYR IV SCH ×2 (10:02→21:56)
[2022-01-08] MEDS: PANTOPRAZOLE 40 MG TAB PO SCH ×2 (10:02→22:13)
[2022-01-08] MEDS: HYDROCORTISONE SOD SUCC 100 MG/2ML INJ VIAL IV SCH (10:02)
[2022-01-08] MEDS: DOCUSATE SOD 100 MG CAP PO SCH ×2 (10:02→22:00)
[2022-01-08] MEDS: OXYCODONE W/ ACETAMINOPHEN 5/325MG TABLET PO PRN (10:13)
[2022-01-08] MEDS: SODIUM FERR GLUC 62.5MG/5ML 125 MG in SODIUM CHL 0.9% 100 ML IV SCH (12:10)
[2022-01-08] MEDS ORDERED: POTASSIUM CHL 10 Meq TABLET PO ONE (14:30)
[2022-01-08] MEDS ORDERED: FUROSEMIDE 20 MG TAB PO ONE (14:30)
[2022-01-08] MEDS: HYDROCORTISONE 10 MG TAB PO SCH (22:13)
[2022-01-08] MEDS: TEMAZEPAM 15 MG CAP PO PRN (22:14)
[2022-01-09] VITALS (9 sets, daily range): BP systolic 78–113; BP diastolic 42–76
[2022-01-09] MEDS: ONDANSETRON HCL 4 MG/2 ML VIAL IV PRN (02:30)
[2022-01-09] MEDS: ALPRAZolam 0.25 MG TAB PO PRN ×2 (03:06→18:43)
[2022-01-09] MEDS: SUCRALFATE 1 GM/10 ML ORAL SUSP PO SCH ×4 (06:49→21:13)
[2022-01-09] MEDS: MIDODRINE HCL 10 MG TAB PO SCH ×3 (06:49→17:03)
[2022-01-09] MEDS: LEVOTHYROXINE SODIUM 50 MCG TAB PO SCH (06:49)
[2022-01-09 07:03] LABS: Hemoglobin 7.5 g/dL (12.2-16.2); Red Cell Distribution Width 20.5 % (11.8-14.3)
[2022-01-09 07:09] LABS: Hematocrit 22.7 % (36.0-46.0); Mean Corpuscular Hemoglobin 30.6 pg (28.0-32.0); Mean Corpuscular Hgb Conc. 33.1 g/dL (32.0-36.0); Mean Corpuscular Volume 92.6 fL (80.0-100.0); Red Blood Cells 2.45 10^6/uL (4.0-5.20); White Blood Cell 3.6 10^3/uL (4.4-10.8)
[2022-01-09 07:11] LABS: Calcium 7.1 mg/dL (8.5-10.1); Potassium 3.3 mmol/L (3.5-5.1)
[2022-01-09 07:14] LABS: BUN/Creatinine Ratio 20.8
[2022-01-09 07:24] LABS: Basophils % (manual) 0 (0.0-2.0); Blast Cells 0; Myelocytes % 0; Promyelocytes % 0; Reactive Lymphocytes 0
[2022-01-09 08:38] LABS: Band Neutrophils % (manual) 4; Eosinophils % (manual) 1 (0-7); Lymphocytes % (manual) 19 (10.0-50.0); Metamyelocytes % 2; Monocytes % (manual) 4 (0-12)
[2022-01-09] MEDS: cefTRIAXone 1GM/50ML D5W 50 ML IV SCH (08:45)
[2022-01-09] MEDS: Ensure HIGH Protein Chocolate 8oz Bottle PO SCH ×3 (08:45→17:45)
[2022-01-09] MEDS: SODIUM CHLOR 0.9% PF (SALINE LOCK) 10ML VIAL/SYR IV SCH ×2 (08:46→21:13)
[2022-01-09] MEDS: OXYCODONE W/ ACETAMINOPHEN 5/325MG TABLET PO PRN (08:53)
[2022-01-09] MEDS: FUROSEMIDE 20 MG TAB PO SCH (10:02)
[2022-01-09] MEDS: PANTOPRAZOLE 40 MG TAB PO SCH ×2 (10:02→21:14)
[2022-01-09] MEDS: DOCUSATE SOD 100 MG CAP PO SCH ×2 (10:03→21:14)
[2022-01-09] MEDS: POTASSIUM CHL 10 Meq TABLET PO SCH (10:03)
[2022-01-09] MEDS: HYDROCORTISONE 10 MG TAB PO SCH ×2 (10:04→21:14)
[2022-01-09] MEDS ORDERED: POTASSIUM CHL 20 Meq TABLET PO ONE (11:45)
[2022-01-09] MEDS: Pro-Stat SF 30ml Vanilla PO SCH (17:45)
[2022-01-09] MEDS: TEMAZEPAM 15 MG CAP PO PRN (21:15)
[2022-01-10] MEDS: ONDANSETRON HCL 4 MG/2 ML VIAL IV PRN (04:33)
[2022-01-10] MEDS: ALPRAZolam 0.25 MG TAB PO PRN (04:36)
[2022-01-10 05:00] VITALS: BP 105/57
[2022-01-10 06:50] LABS: Calcium 7.1 mg/dL (8.5-10.1); Potassium 3.4 mmol/L (3.5-5.1)
[2022-01-10 06:51] LABS: BUN/Creatinine Ratio 14.6
[2022-01-10] MEDS: SUCRALFATE 1 GM/10 ML ORAL SUSP PO SCH ×2 (07:47→13:39)
[2022-01-10] MEDS: MIDODRINE HCL 10 MG TAB PO SCH ×2 (07:47→13:39)
[2022-01-10] MEDS: LEVOTHYROXINE SODIUM 50 MCG TAB PO SCH (07:48)
[2022-01-10] MEDS: Ensure HIGH Protein Chocolate 8oz Bottle PO SCH ×2 (08:00→12:00)
[2022-01-10] MEDS: Pro-Stat SF 30ml Vanilla PO SCH (08:00)
[2022-01-10] MEDS: cefTRIAXone 1GM/50ML D5W 50 ML IV SCH (08:04)
[2022-01-10 08:13] VITALS: BP 106/78
[2022-01-10] MEDS: OXYCODONE W/ ACETAMINOPHEN 5/325MG TABLET PO PRN (08:14)
[2022-01-10] MEDS: SODIUM CHLOR 0.9% PF (SALINE LOCK) 10ML VIAL/SYR IV SCH (09:33)
[2022-01-10] MEDS: HYDROCORTISONE 10 MG TAB PO SCH (09:35)
[2022-01-10] MEDS: DOCUSATE SOD 100 MG CAP PO SCH (09:35)
[2022-01-10] MEDS: POTASSIUM CHL 10 Meq TABLET PO SCH (09:35)
[2022-01-10] MEDS: FUROSEMIDE 20 MG TAB PO SCH (09:36)
[2022-01-10] MEDS: PANTOPRAZOLE 40 MG TAB PO SCH (09:36)
[2022-01-10] MEDS ORDERED: SUCR1TAB22 PO (11:48)
[2022-01-10] MEDS ORDERED: MID10T PO (11:48)
[2022-01-10] MEDS ORDERED: LEV50T PO (11:48)
[2022-01-10] MEDS ORDERED: HYDR10T PO ×2 (11:48)
[2022-01-10] MEDS ORDERED: PANT40T PO (11:48)
[2022-01-10] MEDS ORDERED: FURO1TAB33 PO (11:57)
[2022-01-10] MEDS ORDERED: POTASSIUM CHL 20 Meq TABLET PO ONE (12:00)
[2022-01-10 12:35] VITALS: BP 101/67
[2022-01-10 15:18] VITALS: BP 110/70
== END 2022-01-10 16:59 | disposition home or self-care (01) | DRG 241 ==
LOC: EDBD 12:44 → ER 12:44 → TELE 18:02 → ICU WEST 20:15 → TELE-WESTW 01-09 02:33
PROVIDERS: ADMIT Registered Nurse; ATTEND Internal Medicine
PROC: 30233N1 Transfusion of Nonautologous Red Blood Cells into Peripheral Vein, Percutaneous Approach (ICD-10-PCS; 2022-01-02)
PROC: 0DB68ZX Excision of Stomach, Via Natural or Artificial Opening Endoscopic, Diagnostic (ICD-10-PCS; principal; 2022-01-04 14:30)
DX: K28.4 Chronic or unspecified gastrojejunal ulcer with hemorrhage (principal); N17.0 Acute kidney failure with tubular necrosis; E43 Unspecified severe protein-calorie malnutrition; E87.0 Hyperosmolality and hypernatremia; I95.9 Hypotension, unspecified; I11.0 Hypertensive heart disease with heart failure; Z20.822 Contact with and (suspected) exposure to COVID-19; E27.40 Unspecified adrenocortical insufficiency; E88.09 Other disorders of plasma-protein metabolism, not elsewhere classified; D64.9 Anemia, unspecified; E86.0 Dehydration; E03.9 Hypothyroidism, unspecified; N39.0 Urinary tract infection, site not specified; E87.6 Hypokalemia; D50.0 Iron deficiency anemia secondary to blood loss (chronic); E16.2 Hypoglycemia, unspecified; K44.9 Diaphragmatic hernia without obstruction or gangrene; K21.9 Gastro-esophageal reflux disease without esophagitis; Z82.49 Family history of ischemic heart disease and other diseases of the circulatory system; Z79.01 Long term (current) use of anticoagulants; Z83.3 Family history of diabetes mellitus; Z82.5 Family history of asthma and other chronic lower respiratory diseases; Z86.73 Personal history of transient ischemic attack (TIA), and cerebral infarction without residual deficits; Z90.49 Acquired absence of other specified parts of digestive tract; Z98.84 Bariatric surgery status; Z90.710 Acquired absence of both cervix and uterus; Z86.718 Personal history of other venous thrombosis and embolism; I25.2 Old myocardial infarction; Z88.8 Allergy status to other drugs, medicaments and biological substances; Z68.27 Body mass index [BMI] 27.0-27.9, adult
CPT/HCPCS: 36415; 36569; 43239; 70490; 71045; 71250; 76705; 80048; 80053; 81001; 82043; 82270; 82533; 82570; 82607; 82728; 82746; 82962; 83036; 83540; 83550; 83605; 83735; 83880; 84156; 84439; 84443; 84484; 85007; 85025; 85027; 85610; 85652; 85730; 86038; 86141; 86431; 86850; 86900; 86901; 86920; 87040; 87081; 87086; 87088; 87186; 93005; 93970; 96361; 96365; 96375; 99291; C9113; G0378; J0171; J0696; J1100; J1885; J2001; J2250; J2405; J3480; J3490; J7042

== ENCOUNTER 2022-03-21 14:14 | Inpatient (IN) | payer MEDICAID ==
[~2022-03-21] VITALS: Ht 165.1 cm; Wt 66.6 kg
[~2022-03-21 14:14] MED LIST changes: -APIX5TAB PO; -DICL50TA4 PO; -FER325T PO; +FURO1TAB33 PO; -FURO20TA3 PO; +HYDR10T PO; +LEV50T PO; -LEV88T GT; -METH2.5T PO; -METO25TA93 PO; +MID10T PO; +PANT40T PO; +SUCR1TAB22 PO
[2022-03-21] MEDS ORDERED: ONDANSETRON HCL 4 MG/2 ML VIAL IV ONE (15:15)
[2022-03-21] MEDS ORDERED: HETASTARCH 500 ML IV ONE (16:00)
[2022-03-21 16:03] LABS: Hematocrit 29.2 % (36.0-46.0); Hemoglobin 9.3 g/dL (12.2-16.2); Mean Corpuscular Hemoglobin 36.3 pg (28.0-32.0); Mean Corpuscular Hgb Conc. 31.9 g/dL (32.0-36.0); Mean Corpuscular Volume 113.6 fL (80.0-100.0); Red Blood Cells 2.57 10^6/uL (4.0-5.20); Red Cell Distribution Width 15.5 % (11.8-14.3); White Blood Cell 15.5 10^3/uL (4.4-10.8)
[2022-03-21 16:11] LABS: INR 1.64 (0.9-1.15); Partial Thromboplastin Time 37.6 sec (24.6-33.4)
[2022-03-21 16:25] LABS: Basophils % (manual) 0 (0.0-2.0); Blast Cells 0; Eosinophils % (manual) 0 (0-7); Metamyelocytes % 0; Myelocytes % 0; Promyelocytes % 0; Reactive Lymphocytes 0
[2022-03-21 16:26] LABS: Albumin 1.1 g/dL (3.4-5.0); BUN/Creatinine Ratio 10.3; Potassium 3.5 mmol/L (3.5-5.1)
[2022-03-21 16:29] LABS: Bilirubin, Total 1.6 mg/dL (0.2-1.0); Total Protein 3.9 g/dL (6.4-8.2)
[2022-03-21] MEDS ORDERED: ACETAMINOPHEN 325 MG TAB PO ONE (18:30)
[2022-03-21] MEDS ORDERED: levoFLOXacin 500MG 100 ML IV ONE (18:45)
[2022-03-21] MEDS ORDERED: ALBUMIN 5% 250 ML IV ONE (18:45)
[2022-03-21 19:37] LABS: Band Neutrophils % (manual) 28; Lymphocytes % (manual) 5 (10.0-50.0); Monocytes % (manual) 10 (0-12)
[2022-03-21] MEDS ORDERED: ALBUMIN 25% 100 ML IV ONE (20:00)
[2022-03-21] MEDS: NOREPINEPHRINE 8 MG/250ML KIT 250 ML IV SCH (21:00)
[2022-03-21 21:52] LABS: Urine Specific Gravity 1.025 (1.001-1.035)
[2022-03-21 21:53] LABS: Urine Blood Negative /uL (Negative)
[2022-03-21 22:00] LABS: Urine Ca Carbonate Crystal None Seen /hpf (None Seen); Urine WBC 0-3 /hpf (0 - 5); Urine WBC Clumps None Seen /hpf (None Seen)
[2022-03-21 22:01] LABS: Urine Amorphous Sediment None Seen /hpf; Urine Hyaline Cast None Seen /lpf (0 - 2)
[2022-03-21 22:02] LABS: Urine Amorphous Crystal None Seen /hpf (None Seen); Urine Bacteria FEW /hpf (None Seen); Urine Budding Yeast None Seen /hpf (None Seen); Urine Fine Granular Cast None Seen /lpf; Urine Mucus None Seen (None Seen); Urine Sperm None Seen /hpf (None Seen)
[2022-03-21] MEDS ORDERED: ACETAMINOPHEN 325 MG TAB PO PRN (22:45)
[2022-03-21] MEDS ORDERED: DOCUSATE SOD 100 MG CAP PO PRN (22:45)
[2022-03-21] MEDS: ALBUMIN 25% 100 ML IV SCH (23:27)
[2022-03-21] MEDS ORDERED: NITROGLYCERIN 0.4 MG SL TAB SL PRN (23:45)
[2022-03-21] MEDS ORDERED: MORPHINE SULFATE INJ 2 MG/ml SYRG IV PRN (23:45)
[2022-03-22] MEDS ORDERED: MORPHINE SULFATE INJ 2 MG/ml SYRG IV PRN
[2022-03-22] MEDS: ALBUMIN 25% 100 ML IV SCH ×2 (00:56→15:30)
[2022-03-22] MEDS: MORPHINE SULFATE INJ 2 MG/ml SYRG IV PRN ×2 (01:01→19:52)
[2022-03-22 06:37] LABS: Basophils # (auto) 0.1 10 ^3/uL (0-0.2); Basophils % (auto) 0.4 % (0.0-2.0); Eosinophils # (auto) 0 10 ^3/uL (0-0.8); Hematocrit 24.9 % (36.0-46.0); Hemoglobin 7.9 g/dL (12.2-16.2); Lymphocytes % (auto) 7.9 % (10.0-50.0); Mean Corpuscular Hemoglobin 35.7 pg (28.0-32.0); Mean Corpuscular Hgb Conc. 31.9 g/dL (32.0-36.0); Monocytes # (auto) 0.5 10 ^3/uL (0-1.3); Monocytes % (auto) 3.8 % (0.0-12.0); Neutrophils # (auto) 10.7 10 ^3/uL (1.6-8.6); Neutrophils % (auto) 87.9 % (37.0-80.0); Red Blood Cells 2.22 10^6/uL (4.0-5.20); Red Cell Distribution Width 15.7 % (11.8-14.3); White Blood Cell 12.2 10^3/uL (4.4-10.8)
[2022-03-22] MEDS: SODIUM CHLOR 0.9% PF (SALINE LOCK) 10ML VIAL/SYR IV SCH ×3 (06:43→22:16)
[2022-03-22] MEDS: LEVOTHYROXINE SODIUM 50 MCG TAB PO SCH (06:43)
[2022-03-22 06:59] LABS: Bilirubin, Total 2.4 mg/dL (0.2-1.0); Total Protein 3.8 g/dL (6.4-8.2)
[2022-03-22 07:39] LABS: BUN/Creatinine Ratio 11.9; Potassium 2.9 mmol/L (3.5-5.1)
[2022-03-22] MEDS: NOREPINEPHRINE 8 MG/250ML KIT 250 ML IV SCH ×2 (08:51→22:28)
[2022-03-22] MEDS ORDERED: POTASSIUM EFFERVESENT TAB 25 MEQ PO ONE (09:30)
[2022-03-22] MEDS ORDERED: levoFLOXacin 250MG 50 ML IV SCH (10:00)
[2022-03-22] MEDS ORDERED: FAMOTIDINE (10MG/ML) 2ML VL IV SCH (10:00)
[2022-03-22] MEDS: ASPirin 81 mg TAB PO SCH (10:23)
[2022-03-22] MEDS: ONDANSETRON HCL 4 MG/2 ML VIAL IV PRN (11:47)
[2022-03-22] MEDS: DOPamine 1600MCG/ML D5W 250 ML IV SCH (12:53)
[2022-03-22 13:29] LABS: Folate (Folic Acid) 17.63 ng/mL (5.38-24)
[2022-03-22] MEDS ORDERED: LOPERAMIDE HCL 2 MG CAP/TAB PO PRN (17:30)
[2022-03-22] MEDS: MIDODRINE HCL 10 MG TAB PO SCH (17:40)
[2022-03-22] MEDS: SUCRALFATE 1 GM/10 ML ORAL SUSP PO SCH (17:40)
[2022-03-22] MEDS: HYDROCORTISONE 10 MG TAB PO SCH (22:15)
[2022-03-22 22:28] LABS: Calcium 7.4 mg/dL (8.5-10.1); Potassium 3.7 mmol/L (3.5-5.1)
[2022-03-22 22:32] LABS: BUN/Creatinine Ratio 11.4; Bilirubin, Total 2.7 mg/dL (0.2-1.0); Total Protein 3.8 g/dL (6.4-8.2)
[2022-03-23 03:57] LABS: Basophils # (auto) 0 10 ^3/uL (0-0.2); Hemoglobin 8.9 g/dL (12.2-16.2); Lymphocytes # (auto) 0.9 10 ^3/uL (0.4-5.4); Monocytes # (auto) 0.3 10 ^3/uL (0-1.3)
[2022-03-23 03:59] LABS: Eosinophils # (auto) 0.2 10 ^3/uL (0-0.8); Eosinophils % (auto) 1.7 % (0.0-7.0); Hematocrit 28.5 % (36.0-46.0); Mean Corpuscular Hemoglobin 35.5 pg (28.0-32.0); Mean Corpuscular Hgb Conc. 31.2 g/dL (32.0-36.0); Mean Corpuscular Volume 113.6 fL (80.0-100.0); Monocytes % (auto) 2.4 % (0.0-12.0); Neutrophils % (auto) 88.9 % (37.0-80.0); Nucleated Red Blood Cells % 0.1 %; Red Blood Cells 2.51 10^6/uL (4.0-5.20); Red Cell Distribution Width 15.7 % (11.8-14.3); White Blood Cell 12.4 10^3/uL (4.4-10.8)
[2022-03-23] MEDS: MORPHINE SULFATE INJ 2 MG/ml SYRG IV PRN (04:10)
[2022-03-23 04:15] LABS: Albumin 2.2 g/dL (3.4-5.0); Calcium 7.9 mg/dL (8.5-10.1); Magnesium 2.1 mg/dL (1.6-2.6); Potassium 3.4 mmol/L (3.5-5.1)
[2022-03-23 04:21] LABS: BUN/Creatinine Ratio 10.9; Bilirubin, Total 3.2 mg/dL (0.2-1.0); Total Protein 4.3 g/dL (6.4-8.2)
[2022-03-23] MEDS ORDERED: POTASSIUM CHL 20 Meq TABLET PO ONE (05:00)
[2022-03-23] MEDS: MIDODRINE HCL 10 MG TAB PO SCH ×3 (06:21→17:43)
[2022-03-23] MEDS: SUCRALFATE 1 GM/10 ML ORAL SUSP PO SCH ×3 (06:21→17:43)
[2022-03-23] MEDS: LEVOTHYROXINE SODIUM 50 MCG TAB PO SCH (06:21)
[2022-03-23] MEDS: SODIUM CHLOR 0.9% PF (SALINE LOCK) 10ML VIAL/SYR IV SCH ×3 (06:22→23:35)
[2022-03-23] MEDS: ASPirin 81 mg TAB PO SCH (10:10)
[2022-03-23] MEDS: PANTOPRAZOLE 40 MG TAB PO SCH (10:10)
[2022-03-23] MEDS: HYDROCORTISONE 10 MG TAB PO SCH ×2 (10:10→20:13)
[2022-03-23] MEDS: DOPamine 1600MCG/ML D5W 250 ML IV SCH (12:55)
[2022-03-23] MEDS ORDERED: HYDROCORTISONE SOD SUCC 100 MG/2ML INJ VIAL IV ONE (13:15)
[2022-03-23] MEDS: NOREPINEPHRINE 8 MG/250ML KIT 250 ML IV SCH (20:45)
[2022-03-24] MEDS: HYDROCORTISONE 10 MG TAB PO SCH ×3 (04:23→20:09)
[2022-03-24 04:42] LABS: Basophils # (auto) 0 10 ^3/uL (0-0.2); Eosinophils # (auto) 0.2 10 ^3/uL (0-0.8); Lymphocytes # (auto) 0.8 10 ^3/uL (0.4-5.4); Monocytes # (auto) 0.4 10 ^3/uL (0-1.3); Nucleated Red Blood Cells % 0.1 %
[2022-03-24 04:46] LABS: Basophils % (auto) 0.1 % (0.0-2.0); Eosinophils % (auto) 2.1 % (0.0-7.0); Lymphocytes % (auto) 6.8 % (10.0-50.0); Mean Corpuscular Hemoglobin 34.9 pg (28.0-32.0); Mean Corpuscular Hgb Conc. 30.8 g/dL (32.0-36.0); Mean Corpuscular Volume 113.2 fL (80.0-100.0); Monocytes % (auto) 3.3 % (0.0-12.0); Neutrophils # (auto) 10.2 10 ^3/uL (1.6-8.6); Neutrophils % (auto) 87.7 % (37.0-80.0); Red Cell Distribution Width 15.9 % (11.8-14.3); White Blood Cell 11.7 10^3/uL (4.4-10.8)
[2022-03-24 04:56] LABS: Albumin 1.8 g/dL (3.4-5.0); BUN/Creatinine Ratio 11.7; Calcium 7.8 mg/dL (8.5-10.1)
[2022-03-24 04:59] LABS: Bilirubin, Total 2.8 mg/dL (0.2-1.0); Total Protein 3.9 g/dL (6.4-8.2)
[2022-03-24] MEDS: SODIUM CHLOR 0.9% PF (SALINE LOCK) 10ML VIAL/SYR IV SCH ×3 (05:58→22:49)
[2022-03-24] MEDS: SUCRALFATE 1 GM/10 ML ORAL SUSP PO SCH ×3 (06:43→17:52)
[2022-03-24] MEDS: MIDODRINE HCL 10 MG TAB PO SCH ×3 (06:43→17:57)
[2022-03-24] MEDS: LEVOTHYROXINE SODIUM 50 MCG TAB PO SCH (06:43)
[2022-03-24] MEDS: ASPirin 81 mg TAB PO SCH (10:19)
[2022-03-24] MEDS: PANTOPRAZOLE 40 MG TAB PO SCH (10:19)
[2022-03-24] MEDS: DOPamine 1600MCG/ML D5W 250 ML IV SCH (12:30)
[2022-03-25] MEDS: HYDROCORTISONE 10 MG TAB PO SCH ×2 (04:09→12:32)
[2022-03-25] MEDS: SODIUM CHLOR 0.9% PF (SALINE LOCK) 10ML VIAL/SYR IV SCH ×3 (06:11→22:11)
[2022-03-25] MEDS: MIDODRINE HCL 10 MG TAB PO SCH ×3 (06:13→19:08)
[2022-03-25] MEDS: SUCRALFATE 1 GM/10 ML ORAL SUSP PO SCH ×3 (06:28→17:19)
[2022-03-25] MEDS: LEVOTHYROXINE SODIUM 50 MCG TAB PO SCH (06:29)
[2022-03-25] MEDS: cefTRIAXone 1GM/50ML D5W 50 ML IV SCH (09:25)
[2022-03-25 09:45] VITALS: BP 127/88
[2022-03-25 10:04] VITALS: BP 127/88
[2022-03-25] MEDS: AZITHROMYCIN 500MG/ 250ML 250 ML IV SCH (10:41)
[2022-03-25] MEDS: DOPamine 1600MCG/ML D5W 250 ML IV SCH (10:43)
[2022-03-25] MEDS: ASPirin 81 mg TAB PO SCH (10:53)
[2022-03-25] MEDS: PANTOPRAZOLE 40 MG TAB PO SCH (10:53)
[2022-03-25 11:26] VITALS: BP 114/83
[2022-03-25] MEDS: ALPRAZolam 0.25 MG TAB PO PRN ×2 (11:26→17:28)
[2022-03-25 15:26] VITALS: BP 114/85
[2022-03-25 19:10] VITALS: BP 109/75
[2022-03-25] MEDS: HYDROCORTISONE SOD SUCC 100 MG/2ML INJ VIAL IV SCH (22:11)
[2022-03-25 22:20] VITALS: BP 113/79
[2022-03-26] VITALS (42 sets, daily range): BP systolic 102–146; BP diastolic 64–93
[2022-03-26] MEDS: ALPRAZolam 0.25 MG TAB PO PRN ×2 (00:24→08:03)
[2022-03-26] MEDS: SODIUM CHLOR 0.9% PF (SALINE LOCK) 10ML VIAL/SYR IV SCH ×3 (06:51→21:42)
[2022-03-26] MEDS: MIDODRINE HCL 10 MG TAB PO SCH ×3 (06:51→17:55)
[2022-03-26] MEDS: HYDROCORTISONE SOD SUCC 100 MG/2ML INJ VIAL IV SCH ×3 (06:51→22:01)
[2022-03-26] MEDS: LEVOTHYROXINE SODIUM 50 MCG TAB PO SCH (06:53)
[2022-03-26] MEDS: SUCRALFATE 1 GM/10 ML ORAL SUSP PO SCH ×3 (06:53→17:55)
[2022-03-26 07:40] LABS: Basophils # (auto) 0 10 ^3/uL (0-0.2); Basophils % (auto) 0.1 % (0.0-2.0); Eosinophils # (auto) 0 10 ^3/uL (0-0.8); Lymphocytes # (auto) 0.6 10 ^3/uL (0.4-5.4); Monocytes # (auto) 0.2 10 ^3/uL (0-1.3); Nucleated Red Blood Cells % 0.1 %
[2022-03-26 07:42] LABS: Hematocrit 28.4 % (36.0-46.0); Lymphocytes % (auto) 8.1 % (10.0-50.0); Mean Corpuscular Hemoglobin 35.6 pg (28.0-32.0); Mean Corpuscular Hgb Conc. 31.9 g/dL (32.0-36.0); Mean Corpuscular Volume 111.5 fL (80.0-100.0); Monocytes % (auto) 2.8 % (0.0-12.0); Neutrophils # (auto) 7.1 10 ^3/uL (1.6-8.6); Red Blood Cells 2.54 10^6/uL (4.0-5.20); Red Cell Distribution Width 15.3 % (11.8-14.3)
[2022-03-26 07:43] LABS: Calcium 8.1 mg/dL (8.5-10.1); Potassium 3.5 mmol/L (3.5-5.1)
[2022-03-26 07:45] LABS: BUN/Creatinine Ratio 13.2
[2022-03-26] MEDS: cefTRIAXone 1GM/50ML D5W 50 ML IV SCH (09:00)
[2022-03-26] MEDS: PANTOPRAZOLE 40 MG TAB PO SCH (09:29)
[2022-03-26] MEDS: ASPirin 81 mg TAB PO SCH (09:29)
[2022-03-26] MEDS ORDERED: ETOMIDATE (2MG/ML) 20ML VIAL IV ONE ×2 (10:27→10:30)
[2022-03-26] MEDS ORDERED: ROCURONIUM 10MG/ML 10ML VIAL IV ONE ×2 (10:27→10:30)
[2022-03-26] MEDS ORDERED: MIDAZOLAM DRIP 50 mg/50mL 50 ML IV ONE (10:28)
[2022-03-26] MEDS ORDERED: MIDAZOLAM DRIP 50 mg/50mL 50 ML IV SCH (10:30)
[2022-03-26] MEDS ORDERED: POTASSIUM CHLORIDE 40 MEQ, LIDOCAINE 1% (LOCAL ANESTH.) 4 ML in SODIUM CHL 0.9% 250 ML IV ONE (10:30)
[2022-03-26] MEDS: MIDAZOLAM DRIP 50 mg/50mL 50 ML IV SCH ×3 (10:38→17:55)
[2022-03-26] MEDS: fentaNYL Drip 2500mCg/250mlNS 250 ML IV SCH (11:29)
[2022-03-26] MEDS: AZITHROMYCIN 500MG/ 250ML 250 ML IV SCH (12:13)
[2022-03-26] MEDS: NOREPINEPHRINE 8 MG/250ML KIT 250 ML IV SCH (12:23)
[2022-03-26] MEDS: PROPOFOL 100 ML IV SCH (12:23)
[2022-03-26] MEDS: DOPamine 1600MCG/ML D5W 250 ML IV SCH (13:29)
[2022-03-26] MEDS ORDERED: SODIUM CHLORIDE 0.9% 500 ML IV ONE (21:30)
[2022-03-26] MEDS: HEPARIN SODIUM (PORCINE) 5000 UNITS/ML 1ML VIAL SC SCH (22:01)
[2022-03-27] VITALS (105 sets, daily range): BP systolic 92–152; BP diastolic 53–94
[2022-03-27] MEDS: MIDAZOLAM DRIP 50 mg/50mL 50 ML IV SCH ×6 (00:58→21:04)
[2022-03-27] MEDS ORDERED: ACETAMINOPHEN 650 mg PER 20.3 mL UD GT PRN (02:30)
[2022-03-27 04:58] LABS: Hemoglobin 9.1 g/dL (12.2-16.2)
[2022-03-27 05:00] LABS: Hematocrit 28.5 % (36.0-46.0); Mean Corpuscular Hemoglobin 35.5 pg (28.0-32.0); Mean Corpuscular Hgb Conc. 31.9 g/dL (32.0-36.0); Red Blood Cells 2.57 10^6/uL (4.0-5.20); White Blood Cell 8.8 10^3/uL (4.4-10.8)
[2022-03-27 05:03] LABS: Band Neutrophils % (manual) 0; Basophils % (manual) 0 (0.0-2.0); Blast Cells 0; Eosinophils % (manual) 0 (0-7); Promyelocytes % 0
[2022-03-27 05:17] LABS: Albumin 1.6 g/dL (3.4-5.0); Calcium 7.8 mg/dL (8.5-10.1); Potassium 4.1 mmol/L (3.5-5.1)
[2022-03-27 05:21] LABS: BUN/Creatinine Ratio 12.7; Bilirubin, Total 1.8 mg/dL (0.2-1.0)
[2022-03-27] MEDS: SODIUM CHLOR 0.9% PF (SALINE LOCK) 10ML VIAL/SYR IV SCH ×3 (05:55→21:03)
[2022-03-27] MEDS: MIDODRINE HCL 10 MG TAB PO SCH ×3 (05:56→18:00)
[2022-03-27] MEDS: HYDROCORTISONE SOD SUCC 100 MG/2ML INJ VIAL IV SCH ×3 (05:56→21:00)
[2022-03-27] MEDS: DOPamine 1600MCG/ML D5W 250 ML IV SCH (05:57)
[2022-03-27] MEDS: SUCRALFATE 1 GM/10 ML ORAL SUSP PO SCH ×3 (06:50→18:13)
[2022-03-27] MEDS: LEVOTHYROXINE SODIUM 50 MCG TAB PO SCH (06:50)
[2022-03-27 07:54] LABS: Lymphocytes % (manual) 9 (10.0-50.0); Metamyelocytes % 2; Monocytes % (manual) 4 (0-12); Myelocytes % 2; Reactive Lymphocytes 1
[2022-03-27] MEDS: ASPirin 81 mg TAB PO SCH (09:14)
[2022-03-27] MEDS: HEPARIN SODIUM (PORCINE) 5000 UNITS/ML 1ML VIAL SC SCH ×2 (09:14→21:03)
[2022-03-27] MEDS: cefTRIAXone 1GM/50ML D5W 50 ML IV SCH (09:15)
[2022-03-27] MEDS: AZITHROMYCIN 500MG/ 250ML 250 ML IV SCH (09:15)
[2022-03-27] MEDS: NOREPINEPHRINE 8 MG/250ML KIT 250 ML IV SCH (10:45)
[2022-03-27] MEDS: fentaNYL Drip 2500mCg/250mlNS 250 ML IV SCH ×2 (11:27→23:32)
[2022-03-27] MEDS: PROPOFOL 100 ML IV SCH (11:28)
[2022-03-27] MEDS ORDERED: Vital AF 1.2 Cal 1 liter bottle GT SCH (12:00)
[2022-03-27] MEDS ORDERED: METOCLOPRAMIDE 10 mg/10ml ORAL soln GT PRN (14:00)
[2022-03-27] MEDS: ALBUMIN 25% 100 ML IV SCH ×2 (14:10→20:58)
[2022-03-27] MEDS ORDERED: FUROSEMIDE 40 MG/4 ML VIAL IV ONE (15:00)
[2022-03-28] VITALS (102 sets, daily range): BP systolic 113–157; BP diastolic 66–86
[2022-03-28 02:59] LABS: Mean Corpuscular Hemoglobin 34.9 pg (28.0-32.0); Mean Corpuscular Hgb Conc. 31.5 g/dL (32.0-36.0); White Blood Cell 7.8 10^3/uL (4.4-10.8)
[2022-03-28 03:00] LABS: Hematocrit 26.6 % (36.0-46.0); Hemoglobin 8.4 g/dL (12.2-16.2); Mean Corpuscular Volume 110.8 fL (80.0-100.0); Red Cell Distribution Width 15.6 % (11.8-14.3)
[2022-03-28 03:08] LABS: Basophils % (manual) 0 (0.0-2.0); Blast Cells 0; Eosinophils % (manual) 0 (0-7); Promyelocytes % 0; Reactive Lymphocytes 0
[2022-03-28 03:15] LABS: Albumin 2.4 g/dL (3.4-5.0); BUN/Creatinine Ratio 12.5; Calcium 8.3 mg/dL (8.5-10.1); Potassium 3.7 mmol/L (3.5-5.1)
[2022-03-28 03:24] LABS: Bilirubin, Total 1.5 mg/dL (0.2-1.0); Total Protein 4.6 g/dL (6.4-8.2)
[2022-03-28 03:32] LABS: Band Neutrophils % (manual) 3; Lymphocytes % (manual) 8 (10.0-50.0); Metamyelocytes % 1; Monocytes % (manual) 3 (0-12); Myelocytes % 1
[2022-03-28] MEDS: SODIUM CHLOR 0.9% PF (SALINE LOCK) 10ML VIAL/SYR IV SCH ×3 (05:15→21:01)
[2022-03-28] MEDS: ALBUMIN 25% 100 ML IV SCH (05:15)
[2022-03-28] MEDS: MIDODRINE HCL 10 MG TAB PO SCH ×3 (05:15→16:51)
[2022-03-28] MEDS: HYDROCORTISONE SOD SUCC 100 MG/2ML INJ VIAL IV SCH ×3 (05:20→21:04)
[2022-03-28] MEDS: SUCRALFATE 1 GM/10 ML ORAL SUSP PO SCH ×3 (06:14→17:20)
[2022-03-28] MEDS: LEVOTHYROXINE SODIUM 50 MCG TAB PO SCH (06:15)
[2022-03-28] MEDS: MIDAZOLAM DRIP 50 mg/50mL 50 ML IV SCH ×4 (07:25→21:06)
[2022-03-28] MEDS: PROPOFOL 100 ML IV SCH ×2 (07:26→18:15)
[2022-03-28] MEDS: NOREPINEPHRINE 8 MG/250ML KIT 250 ML IV SCH (07:27)
[2022-03-28] MEDS: cefTRIAXone 1GM/50ML D5W 50 ML IV SCH (07:56)
[2022-03-28] MEDS: HEPARIN SODIUM (PORCINE) 5000 UNITS/ML 1ML VIAL SC SCH ×2 (08:59→21:05)
[2022-03-28] MEDS: AZITHROMYCIN 500MG/ 250ML 250 ML IV SCH (08:59)
[2022-03-28] MEDS: ASPirin 81 mg TAB PO SCH (08:59)
[2022-03-28] MEDS: fentaNYL Drip 2500mCg/250mlNS 250 ML IV SCH (13:35)
[2022-03-28] MEDS: FUROSEMIDE 40 MG/4 ML VIAL IV SCH ×2 (14:31→21:05)
[2022-03-28] MEDS: DOPamine 1600MCG/ML D5W 250 ML IV SCH ×2 (14:32→21:14)
[2022-03-28 14:49] LABS: Urine Bacteria FEW /hpf (None Seen); Urine Blood 1+ /uL (Negative); Urine Hyaline Cast MANY /lpf (0 - 2); Urine Mucus FEW (None Seen); Urine Specific Gravity 1.019 (1.001-1.035); Urine WBC 28 /hpf (0 - 5)
[2022-03-28] MEDS: FREE WATER GT SCH ×2 (17:20→21:00)
[2022-03-29] VITALS (106 sets, daily range): BP systolic 113–163; BP diastolic 67–89
[2022-03-29] MEDS: fentaNYL Drip 2500mCg/250mlNS 250 ML IV SCH (01:40)
[2022-03-29] MEDS: FREE WATER GT SCH ×6 (01:41→22:16)
[2022-03-29 02:26] LABS: Basophils # (auto) 0 10 ^3/uL (0-0.2); Eosinophils # (auto) 0 10 ^3/uL (0-0.8); Eosinophils % (auto) 0.1 % (0.0-7.0); Hematocrit 26.9 % (36.0-46.0); Hemoglobin 8.6 g/dL (12.2-16.2); Lymphocytes # (auto) 0.3 10 ^3/uL (0.4-5.4); Neutrophils # (auto) 6.6 10 ^3/uL (1.6-8.6); Red Cell Distribution Width 15.5 % (11.8-14.3)
[2022-03-29 02:28] LABS: Basophils % (auto) 0.1 % (0.0-2.0); Lymphocytes % (auto) 4.8 % (10.0-50.0); Mean Corpuscular Hemoglobin 34.6 pg (28.0-32.0); Mean Corpuscular Hgb Conc. 31.8 g/dL (32.0-36.0); Mean Corpuscular Volume 108.8 fL (80.0-100.0); Monocytes # (auto) 0.1 10 ^3/uL (0-1.3); Nucleated Red Blood Cells % 0.1 %; Red Blood Cells 2.47 10^6/uL (4.0-5.20); White Blood Cell 7.1 10^3/uL (4.4-10.8)
[2022-03-29 02:31] LABS: BUN/Creatinine Ratio 14.4
[2022-03-29] MEDS: MIDAZOLAM DRIP 50 mg/50mL 50 ML IV SCH ×4 (02:37→14:13)
[2022-03-29 03:03] LABS: Potassium 2.7 mmol/L (3.5-5.1)
[2022-03-29] MEDS ORDERED: POTASSIUM EFFERVESENT TAB 25 MEQ PO ONE (03:15)
[2022-03-29] MEDS ORDERED: POTASSIUM EFFERVESENT TAB 25 MEQ ONE (03:19)
[2022-03-29] MEDS: SODIUM CHLOR 0.9% PF (SALINE LOCK) 10ML VIAL/SYR IV SCH ×3 (05:50→22:16)
[2022-03-29] MEDS: FUROSEMIDE 40 MG/4 ML VIAL IV SCH ×3 (05:50→22:16)
[2022-03-29] MEDS: HYDROCORTISONE SOD SUCC 100 MG/2ML INJ VIAL IV SCH ×2 (05:50→17:23)
[2022-03-29] MEDS: MIDODRINE HCL 10 MG TAB PO SCH ×3 (05:51→14:12)
[2022-03-29] MEDS: LEVOTHYROXINE SODIUM 50 MCG TAB PO SCH (06:11)
[2022-03-29] MEDS: SUCRALFATE 1 GM/10 ML ORAL SUSP PO SCH ×3 (06:11→14:21)
[2022-03-29] MEDS: NOREPINEPHRINE 8 MG/250ML KIT 250 ML IV SCH (07:24)
[2022-03-29] MEDS: cefTRIAXone 1GM/50ML D5W 50 ML IV SCH (07:24)
[2022-03-29] MEDS: ASPirin 81 mg TAB PO SCH (07:50)
[2022-03-29] MEDS: HEPARIN SODIUM (PORCINE) 5000 UNITS/ML 1ML VIAL SC SCH ×2 (07:51→22:17)
[2022-03-29] MEDS: AZITHROMYCIN 500MG/ 250ML 250 ML IV SCH (07:51)
[2022-03-29] MEDS ORDERED: POTASSIUM EFFERVESENT TAB 25 MEQ GT ONE (12:15)
[2022-03-29] MEDS: PROPOFOL 100 ML IV SCH (15:39)
[2022-03-29] MEDS ORDERED: POTASSIUM CHL 20MEQ/100ML 100 ML IV ONE (16:00)
[2022-03-30] VITALS (90 sets, daily range): BP systolic 88–135; BP diastolic 34–73
[2022-03-30] MEDS: FREE WATER GT SCH ×7 (02:00→20:43)
[2022-03-30] MEDS: MIDAZOLAM DRIP 50 mg/50mL 50 ML IV SCH ×6 (05:00→20:41)
[2022-03-30] MEDS: MIDODRINE HCL 10 MG TAB PO SCH ×3 (06:00→17:37)
[2022-03-30] MEDS: SODIUM CHLOR 0.9% PF (SALINE LOCK) 10ML VIAL/SYR IV SCH ×3 (06:18→22:00)
[2022-03-30] MEDS: FUROSEMIDE 40 MG/4 ML VIAL IV SCH (06:31)
[2022-03-30] MEDS: HYDROCORTISONE SOD SUCC 100 MG/2ML INJ VIAL IV SCH ×2 (06:32→17:44)
[2022-03-30] MEDS: SUCRALFATE 1 GM/10 ML ORAL SUSP PO SCH ×3 (07:00→17:36)
[2022-03-30] MEDS: LEVOTHYROXINE SODIUM 50 MCG TAB PO SCH (07:00)
[2022-03-30 07:16] LABS: BUN/Creatinine Ratio 20.6; Magnesium 1.9 mg/dL (1.6-2.6)
[2022-03-30 07:35] LABS: Potassium 2.2 mmol/L (3.5-5.1)
[2022-03-30] MEDS: POTASSIUM CHL 20MEQ/100ML 100 ML IV SCH ×2 (08:43→10:15)
[2022-03-30] MEDS: MAGNESIUM SULFATE 1GM/100ML 100 ML IV SCH ×2 (09:00→10:00)
[2022-03-30] MEDS: cefTRIAXone 1GM/50ML D5W 50 ML IV SCH (09:14)
[2022-03-30] MEDS: AZITHROMYCIN 500MG/ 250ML 250 ML IV SCH (09:30)
[2022-03-30] MEDS: POTASSIUM EFFERVESENT TAB 25 MEQ GT SCH (10:00)
[2022-03-30] MEDS: HEPARIN SODIUM (PORCINE) 5000 UNITS/ML 1ML VIAL SC SCH ×2 (10:00→22:44)
[2022-03-30] MEDS: ASPirin 81 mg TAB PO SCH (10:00)
[2022-03-30] MEDS: fentaNYL Drip 2500mCg/250mlNS 250 ML IV SCH (10:30)
[2022-03-30] MEDS: NOREPINEPHRINE 8 MG/250ML KIT 250 ML IV SCH (10:45)
[2022-03-30 11:34] LABS: Protein, Urine 45.6 mg/dL (0.0-11.9)
[2022-03-30] MEDS: MORPHINE SULFATE INJ 2 MG/ml SYRG IV PRN ×2 (12:08→16:24)
[2022-03-30] MEDS ORDERED: POTASSIUM CHLORIDE 40 MEQ, LIDOCAINE 1% (LOCAL ANESTH.) 4 ML in SODIUM CHL 0.9% 250 ML IV ONE (14:45)
[2022-03-30] MEDS: OXYCODONE W/ ACETAMINOPHEN 5/325MG TABLET PO PRN (22:39)
[2022-03-31] VITALS (71 sets, daily range): BP systolic 90–163; BP diastolic 52–100
[2022-03-31] MEDS: OXYCODONE W/ ACETAMINOPHEN 5/325MG TABLET PO PRN ×4 (02:33→20:04)
[2022-03-31] MEDS: ONDANSETRON HCL 4 MG/2 ML VIAL IV PRN (05:45)
[2022-03-31] MEDS: HYDROCORTISONE SOD SUCC 100 MG/2ML INJ VIAL IV SCH ×2 (05:45→18:27)
[2022-03-31] MEDS: MIDODRINE HCL 10 MG TAB PO SCH ×3 (06:00→18:00)
[2022-03-31] MEDS: FREE WATER GT SCH ×2 (06:00→10:31)
[2022-03-31] MEDS: MIDAZOLAM DRIP 50 mg/50mL 50 ML IV SCH ×4 (06:00→21:00)
[2022-03-31] MEDS: SODIUM CHLOR 0.9% PF (SALINE LOCK) 10ML VIAL/SYR IV SCH ×3 (06:00→22:15)
[2022-03-31] MEDS: SUCRALFATE 1 GM/10 ML ORAL SUSP PO SCH ×3 (06:55→18:35)
[2022-03-31] MEDS: LEVOTHYROXINE SODIUM 50 MCG TAB PO SCH (06:55)
[2022-03-31] MEDS: cefTRIAXone 1GM/50ML D5W 50 ML IV SCH (09:26)
[2022-03-31 10:08] LABS: Hematocrit 23.3 % (36.0-46.0); Hemoglobin 7.7 g/dL (12.2-16.2); Mean Corpuscular Hemoglobin 35.3 pg (28.0-32.0)
[2022-03-31 10:10] LABS: Mean Corpuscular Hgb Conc. 33.2 g/dL (32.0-36.0); Mean Corpuscular Volume 106.3 fL (80.0-100.0); Red Blood Cells 2.19 10^6/uL (4.0-5.20); Red Cell Distribution Width 15.5 % (11.8-14.3); White Blood Cell 10.6 10^3/uL (4.4-10.8)
[2022-03-31 10:23] LABS: BUN/Creatinine Ratio 18.8; Calcium 8.1 mg/dL (8.5-10.1); Magnesium 2.2 mg/dL (1.6-2.6)
[2022-03-31] MEDS: AZITHROMYCIN 500MG/ 250ML 250 ML IV SCH (10:28)
[2022-03-31 10:29] LABS: Band Neutrophils % (manual) 0; Basophils % (manual) 0 (0.0-2.0); Blast Cells 0; Eosinophils % (manual) 0 (0-7); Metamyelocytes % 0; Monocytes % (manual) 0 (0-12); Promyelocytes % 0; Reactive Lymphocytes 0
[2022-03-31] MEDS: PROPOFOL 100 ML IV SCH (10:30)
[2022-03-31] MEDS: POTASSIUM EFFERVESENT TAB 25 MEQ GT SCH (10:30)
[2022-03-31] MEDS: fentaNYL Drip 2500mCg/250mlNS 250 ML IV SCH (10:30)
[2022-03-31] MEDS: ASPirin 81 mg TAB PO SCH (10:30)
[2022-03-31 10:41] LABS: Potassium 2.5 mmol/L (3.5-5.1)
[2022-03-31] MEDS: NOREPINEPHRINE 8 MG/250ML KIT 250 ML IV SCH (10:45)
[2022-03-31] MEDS ORDERED: POTASSIUM CHLORIDE 40 MEQ, LIDOCAINE 1% (LOCAL ANESTH.) 4 ML in SODIUM CHL 0.9% 250 ML IV ONE (10:45)
[2022-03-31 11:01] LABS: Lymphocytes % (manual) 2 (10.0-50.0); Myelocytes % 2
[2022-03-31] MEDS ORDERED: ALBUMIN 25% 100 ML IV ONE (11:30)
[2022-03-31] MEDS: HEPARIN SODIUM (PORCINE) 5000 UNITS/ML 1ML VIAL SC SCH ×2 (12:28→23:48)
[2022-03-31] MEDS: MORPHINE SULFATE INJ 2 MG/ml SYRG IV PRN ×2 (12:45→18:28)
[2022-03-31] MEDS ORDERED: ALPRAZolam 0.5 MG TAB PO ONE (13:30)
[2022-03-31] MEDS: ALPRAZolam 0.25 MG TAB PO PRN ×2 (13:45→20:04)
[2022-03-31] MEDS: POTASSIUM CHL 20MEQ/100ML 100 ML IV SCH ×2 (15:33→18:55)
[2022-03-31] MEDS ORDERED: POTASSIUM CHLORIDE 20 MEQ, LIDOCAINE 1% (LOCAL ANESTH.) 2 ML in SODIUM CHL 0.9% 100 ML IV ONE (18:45)
[2022-03-31 18:52] LABS: BUN/Creatinine Ratio 14.3; Calcium 8.1 mg/dL (8.5-10.1); Potassium 3.5 mmol/L (3.5-5.1)
[2022-03-31] MEDS ORDERED: ALPRAZolam 0.5 MG TAB PO SCH (22:00)
[2022-03-31] MEDS: PANTOPRAZOLE 40 MG TAB PO SCH (23:35)
[2022-03-31] MEDS: MIRTAZAPINE 30 MG TAB PO SCH (23:35)
[2022-04-01] VITALS (26 sets, daily range): BP systolic 104–125; BP diastolic 70–83
[2022-04-01] MEDS: OXYCODONE W/ ACETAMINOPHEN 5/325MG TABLET PO PRN ×3 (01:29→18:30)
[2022-04-01] MEDS: MIDAZOLAM DRIP 50 mg/50mL 50 ML IV SCH (02:00)
[2022-04-01] MEDS: MORPHINE SULFATE INJ 2 MG/ml SYRG IV PRN ×3 (03:29→21:31)
[2022-04-01] MEDS: SODIUM CHLOR 0.9% PF (SALINE LOCK) 10ML VIAL/SYR IV SCH ×3 (06:00→21:46)
[2022-04-01] MEDS: MIDODRINE HCL 10 MG TAB PO SCH ×3 (06:00→21:46)
[2022-04-01] MEDS: LEVOTHYROXINE SODIUM 50 MCG TAB PO SCH (06:31)
[2022-04-01] MEDS: HYDROCORTISONE SOD SUCC 100 MG/2ML INJ VIAL IV SCH (06:32)
[2022-04-01] MEDS: SUCRALFATE 1 GM/10 ML ORAL SUSP PO SCH ×3 (06:33→18:29)
[2022-04-01 07:16] LABS: Hemoglobin 7.3 g/dL (12.2-16.2); Red Cell Distribution Width 15.6 % (11.8-14.3); White Blood Cell 11.6 10^3/uL (4.4-10.8)
[2022-04-01 07:17] LABS: Hematocrit 22.2 % (36.0-46.0); Mean Corpuscular Hemoglobin 34.8 pg (28.0-32.0); Mean Corpuscular Hgb Conc. 32.7 g/dL (32.0-36.0); Mean Corpuscular Volume 106.2 fL (80.0-100.0); Red Blood Cells 2.09 10^6/uL (4.0-5.20)
[2022-04-01 07:32] LABS: Potassium 3.2 mmol/L (3.5-5.1)
[2022-04-01 07:38] LABS: BUN/Creatinine Ratio 15.9; Calcium 8.1 mg/dL (8.5-10.1)
[2022-04-01 08:15] LABS: Band Neutrophils % (manual) 0; Basophils % (manual) 0 (0.0-2.0); Blast Cells 0; Eosinophils % (manual) 0 (0-7); Metamyelocytes % 0; Myelocytes % 0; Promyelocytes % 0; Reactive Lymphocytes 0
[2022-04-01] MEDS: cefTRIAXone 1GM/50ML D5W 50 ML IV SCH (09:07)
[2022-04-01] MEDS: PANTOPRAZOLE 40 MG TAB PO SCH ×2 (09:34→21:30)
[2022-04-01] MEDS: AZITHROMYCIN 500MG/ 250ML 250 ML IV SCH (09:34)
[2022-04-01] MEDS: POTASSIUM EFFERVESENT TAB 25 MEQ GT SCH (09:35)
[2022-04-01] MEDS: HEPARIN SODIUM (PORCINE) 5000 UNITS/ML 1ML VIAL SC SCH ×2 (09:35→21:41)
[2022-04-01] MEDS ORDERED: PANTOPRAZOLE 40 MG TAB PO SCH (10:00)
[2022-04-01] MEDS ORDERED: POTASSIUM EFFERVESENT TAB 25 MEQ PO ONE (13:45)
[2022-04-01] MEDS ORDERED: POTASSIUM CHLORIDE 20 MEQ, LIDOCAINE 1% (LOCAL ANESTH.) 2 ML in SODIUM CHL 0.9% 100 ML IV ONE (13:45)
[2022-04-01] MEDS: IRON SUCROSE COMPLEX 200 MG in SODIUM CHL 0.9% 100 ML IV SCH (13:53)
[2022-04-01 15:59] LABS: Lymphocytes % (manual) 13 (10.0-50.0); Monocytes % (manual) 6 (0-12)
[2022-04-01] MEDS ORDERED: HEPARIN SODIUM (PORCINE) 5000 UNITS/ML 1ML VIAL ONE (21:02)
[2022-04-01] MEDS: ALPRAZolam 0.25 MG TAB PO PRN (21:30)
[2022-04-01] MEDS: MIRTAZAPINE 30 MG TAB PO SCH (21:31)
[2022-04-02] MEDS: OXYCODONE W/ ACETAMINOPHEN 5/325MG TABLET PO PRN ×2 (00:58→10:39)
[2022-04-02 05:06] VITALS: BP 101/66
[2022-04-02] MEDS: MORPHINE SULFATE INJ 2 MG/ml SYRG IV PRN ×2 (05:20→15:53)
[2022-04-02] MEDS: SODIUM CHLOR 0.9% PF (SALINE LOCK) 10ML VIAL/SYR IV SCH ×3 (05:25→21:33)
[2022-04-02 05:57] LABS: BUN/Creatinine Ratio 13.1; Magnesium 1.8 mg/dL (1.6-2.6); Phosphorus 1.1 mg/dL (2.5-4.90); Potassium 4.4 mmol/L (3.5-5.1)
[2022-04-02] MEDS: LEVOTHYROXINE SODIUM 50 MCG TAB PO SCH (06:38)
[2022-04-02] MEDS: SUCRALFATE 1 GM/10 ML ORAL SUSP PO SCH ×3 (06:38→18:25)
[2022-04-02 08:43] VITALS: BP 104/76
[2022-04-02 09:04] LABS: Hemoglobin 8.2 g/dL (12.2-16.2); White Blood Cell 12.8 10^3/uL (4.4-10.8)
[2022-04-02 09:06] LABS: Hematocrit 25.8 % (36.0-46.0); Mean Corpuscular Hgb Conc. 31.7 g/dL (32.0-36.0); Mean Corpuscular Volume 107.4 fL (80.0-100.0); Red Cell Distribution Width 15.5 % (11.8-14.3)
[2022-04-02 09:08] LABS: Basophils % (manual) 0 (0.0-2.0); Blast Cells 0; Metamyelocytes % 0; Myelocytes % 0; Promyelocytes % 0; Reactive Lymphocytes 0
[2022-04-02] MEDS: cefTRIAXone 1GM/50ML D5W 50 ML IV SCH (09:09)
[2022-04-02] MEDS: PANTOPRAZOLE 40 MG TAB PO SCH ×2 (10:18→21:34)
[2022-04-02] MEDS: HYDROCORTISONE 10 MG TAB PO SCH (10:18)
[2022-04-02] MEDS: AZITHROMYCIN 500MG/ 250ML 250 ML IV SCH (10:18)
[2022-04-02] MEDS: MIDODRINE HCL 10 MG TAB PO SCH ×2 (10:18→21:34)
[2022-04-02] MEDS ORDERED: POTASSIUM EFFERVESENT TAB 25 MEQ PO SCH (10:45)
[2022-04-02] MEDS: HEPARIN SODIUM (PORCINE) 5000 UNITS/ML 1ML VIAL SC SCH ×2 (11:27→21:36)
[2022-04-02] MEDS: IRON SUCROSE COMPLEX 200 MG in SODIUM CHL 0.9% 100 ML IV SCH (12:22)
[2022-04-02 12:45] VITALS: BP 105/73
[2022-04-02] MEDS ORDERED: MAGNESIUM SULFATE 1GM/100ML 100 ML IV ONE (13:00)
[2022-04-02 14:34] LABS: Band Neutrophils % (manual) 15; Eosinophils % (manual) 1 (0-7); Lymphocytes % (manual) 14 (10.0-50.0); Monocytes % (manual) 1 (0-12)
[2022-04-02] MEDS: PIPERACILLIN-TAZOB 3.375GM 100 ML IV SCH ×2 (15:28→21:37)
[2022-04-02 16:49] VITALS: BP 109/67
[2022-04-02] MEDS: MIRTAZAPINE 30 MG TAB PO SCH (21:34)
[2022-04-02] MEDS: ALPRAZolam 0.25 MG TAB PO PRN (21:36)
[2022-04-02 23:56] VITALS: BP 128/78
[2022-04-03] MEDS: MORPHINE SULFATE INJ 2 MG/ml SYRG IV PRN ×2 (02:41→08:35)
[2022-04-03] MEDS: OXYCODONE W/ ACETAMINOPHEN 5/325MG TABLET PO PRN ×2 (04:33→12:35)
[2022-04-03] MEDS: SODIUM CHLOR 0.9% PF (SALINE LOCK) 10ML VIAL/SYR IV SCH ×3 (05:37→20:34)
[2022-04-03 05:40] VITALS: BP 104/64
[2022-04-03] MEDS: PIPERACILLIN-TAZOB 3.375GM 100 ML IV SCH ×3 (06:42→23:03)
[2022-04-03] MEDS: SUCRALFATE 1 GM/10 ML ORAL SUSP PO SCH ×3 (06:42→17:10)
[2022-04-03] MEDS: LEVOTHYROXINE SODIUM 50 MCG TAB PO SCH (06:42)
[2022-04-03 07:53] LABS: Hemoglobin 7.9 g/dL (12.2-16.2)
[2022-04-03 07:59] LABS: Hematocrit 24.2 % (36.0-46.0); Mean Corpuscular Hemoglobin 34.3 pg (28.0-32.0); Mean Corpuscular Hgb Conc. 32.5 g/dL (32.0-36.0); Mean Corpuscular Volume 105.5 fL (80.0-100.0); Red Blood Cells 2.29 10^6/uL (4.0-5.20); Red Cell Distribution Width 15.4 % (11.8-14.3); White Blood Cell 16.7 10^3/uL (4.4-10.8)
[2022-04-03 08:04] LABS: Band Neutrophils % (manual) 0; Basophils % (manual) 0 (0.0-2.0); Blast Cells 0; Metamyelocytes % 0; Myelocytes % 0; Promyelocytes % 0; Reactive Lymphocytes 0
[2022-04-03 08:12] LABS: BUN/Creatinine Ratio 10.5; Potassium 3.6 mmol/L (3.5-5.1)
[2022-04-03] MEDS: HEPARIN SODIUM (PORCINE) 5000 UNITS/ML 1ML VIAL SC SCH ×2 (08:21→20:35)
[2022-04-03 08:22] LABS: Calcium 7.6 mg/dL (8.5-10.1)
[2022-04-03] MEDS: MIDODRINE HCL 10 MG TAB PO SCH ×2 (08:25→20:34)
[2022-04-03] MEDS: HYDROCORTISONE 10 MG TAB PO SCH (08:25)
[2022-04-03] MEDS: PANTOPRAZOLE 40 MG TAB PO SCH ×2 (08:25→20:34)
[2022-04-03 09:00] VITALS: BP 80/51
[2022-04-03] MEDS: MAGNESIUM OXIDE 400 MG TAB PO SCH (10:56)
[2022-04-03] MEDS: POTASSIUM CHLORIDE 8 MEQ TAB PO SCH ×2 (10:56→20:36)
[2022-04-03 12:58] LABS: Eosinophils % (manual) 1 (0-7); Lymphocytes % (manual) 16 (10.0-50.0); Monocytes % (manual) 6 (0-12)
[2022-04-03 13:00] VITALS: BP 93/60
[2022-04-03] MEDS: IRON SUCROSE COMPLEX 200 MG in SODIUM CHL 0.9% 100 ML IV SCH (13:49)
[2022-04-03] MEDS ORDERED: ARTIFICIAL TEARS 15ml EACHEYE PRN (15:00)
[2022-04-03] MEDS ORDERED: CALCIUM CARB 500 MG CHEW TAB PO PRN (15:00)
[2022-04-03 17:00] VITALS: BP 94/60
[2022-04-03] MEDS: MIRTAZAPINE 30 MG TAB PO SCH (20:34)
[2022-04-03] MEDS: ALPRAZolam 0.25 MG TAB PO PRN (20:49)
[2022-04-03 22:00] VITALS: BP 107/66
[2022-04-04] MEDS: OXYCODONE W/ ACETAMINOPHEN 5/325MG TABLET PO PRN ×3 (03:22→21:48)
[2022-04-04 05:00] VITALS: BP 98/54
[2022-04-04] MEDS: SODIUM CHLOR 0.9% PF (SALINE LOCK) 10ML VIAL/SYR IV SCH ×3 (06:00→21:48)
[2022-04-04] MEDS: LEVOTHYROXINE SODIUM 50 MCG TAB PO SCH (07:03)
[2022-04-04] MEDS: SUCRALFATE 1 GM/10 ML ORAL SUSP PO SCH ×3 (07:03→18:14)
[2022-04-04] MEDS: PIPERACILLIN-TAZOB 3.375GM 100 ML IV SCH ×3 (07:03→21:47)
[2022-04-04 09:00] VITALS: BP 96/58
[2022-04-04] MEDS: MIDODRINE HCL 10 MG TAB PO SCH ×2 (09:55→18:15)
[2022-04-04] MEDS: POTASSIUM CHLORIDE 8 MEQ TAB PO SCH ×2 (09:55→21:48)
[2022-04-04] MEDS: MAGNESIUM OXIDE 400 MG TAB PO SCH (09:55)
[2022-04-04] MEDS: HYDROCORTISONE 10 MG TAB PO SCH ×2 (09:55→21:48)
[2022-04-04] MEDS: PANTOPRAZOLE 40 MG TAB PO SCH ×2 (09:56→21:47)
[2022-04-04] MEDS: HEPARIN SODIUM (PORCINE) 5000 UNITS/ML 1ML VIAL SC SCH ×2 (09:57→21:49)
[2022-04-04] MEDS ORDERED: DAKINS QUARTER STR 0.125% (NaHypochlorite) 473 ML TOPICAL SOL TOP SCH (10:00)
[2022-04-04] MEDS: IRON SUCROSE COMPLEX 200 MG in SODIUM CHL 0.9% 100 ML IV SCH (12:00)
[2022-04-04 13:00] VITALS: BP_SYST 87
[2022-04-04 17:00] VITALS: BP 87/54
[2022-04-04] MEDS: MIRTAZAPINE 30 MG TAB PO SCH (21:47)
[2022-04-04 22:00] VITALS: BP 119/64
[2022-04-05] MEDS: MORPHINE SULFATE INJ 2 MG/ml SYRG IV PRN ×3 (02:27→21:07)
[2022-04-05 04:40] LABS: Basophils # (auto) 0 10 ^3/uL (0-0.2); Basophils % (auto) 0.3 % (0.0-2.0); Eosinophils # (auto) 0 10 ^3/uL (0-0.8); Mean Corpuscular Volume 105.4 fL (80.0-100.0); Monocytes # (auto) 0.8 10 ^3/uL (0-1.3); Neutrophils % (auto) 89.7 % (37.0-80.0); Nucleated Red Blood Cells % 0.2 %; Red Cell Distribution Width 15.6 % (11.8-14.3); White Blood Cell 15.8 10^3/uL (4.4-10.8)
[2022-04-05 04:47] LABS: Hematocrit 23.1 % (36.0-46.0); Hemoglobin 7.4 g/dL (12.2-16.2); Lymphocytes # (auto) 0.8 10 ^3/uL (0.4-5.4); Mean Corpuscular Hemoglobin 33.7 pg (28.0-32.0); Neutrophils # (auto) 14.2 10 ^3/uL (1.6-8.6); Red Blood Cells 2.19 10^6/uL (4.0-5.20)
[2022-04-05 04:57] VITALS: BP 100/67
[2022-04-05 05:05] LABS: Calcium 7.4 mg/dL (8.5-10.1); Potassium 3.5 mmol/L (3.5-5.1)
[2022-04-05 05:08] LABS: BUN/Creatinine Ratio 9.2; Magnesium 2.2 mg/dL (1.6-2.6)
[2022-04-05] MEDS: SODIUM CHLOR 0.9% PF (SALINE LOCK) 10ML VIAL/SYR IV SCH ×3 (06:00→21:55)
[2022-04-05] MEDS: MIDODRINE HCL 10 MG TAB PO SCH ×3 (06:45→18:10)
[2022-04-05] MEDS: SUCRALFATE 1 GM/10 ML ORAL SUSP PO SCH ×3 (06:45→17:01)
[2022-04-05] MEDS: PIPERACILLIN-TAZOB 3.375GM 100 ML IV SCH ×3 (06:45→21:55)
[2022-04-05] MEDS: LEVOTHYROXINE SODIUM 50 MCG TAB PO SCH (06:45)
[2022-04-05 09:00] VITALS: BP 106/69
[2022-04-05] MEDS: HEPARIN SODIUM (PORCINE) 5000 UNITS/ML 1ML VIAL SC SCH ×2 (10:00→21:56)
[2022-04-05] MEDS: MAGNESIUM OXIDE 400 MG TAB PO SCH (10:55)
[2022-04-05] MEDS: PANTOPRAZOLE 40 MG TAB PO SCH ×2 (10:55→21:54)
[2022-04-05] MEDS: POTASSIUM CHLORIDE 8 MEQ TAB PO SCH ×2 (10:56→21:55)
[2022-04-05] MEDS: HYDROCORTISONE 10 MG TAB PO SCH ×2 (10:56→21:54)
[2022-04-05] MEDS ORDERED: POTASSIUM EFFERVESENT TAB 25 MEQ PO ONE (11:30)
[2022-04-05 13:00] VITALS: BP 111/68
[2022-04-05] MEDS: OXYCODONE W/ ACETAMINOPHEN 5/325MG TABLET PO PRN ×2 (15:03→19:58)
[2022-04-05 17:00] VITALS: BP 106/64
[2022-04-05] MEDS: MIRTAZAPINE 30 MG TAB PO SCH (21:54)
[2022-04-05 22:00] VITALS: BP 107/69
[2022-04-06] MEDS: MORPHINE SULFATE INJ 2 MG/ml SYRG IV PRN ×2 (04:09→16:49)
[2022-04-06 05:00] VITALS: BP 113/72
[2022-04-06 05:21] LABS: Hemoglobin 7.5 g/dL (12.2-16.2); Red Cell Distribution Width 15.7 % (11.8-14.3)
[2022-04-06 05:23] LABS: Hematocrit 23.2 % (36.0-46.0); Mean Corpuscular Hemoglobin 34.2 pg (28.0-32.0); Mean Corpuscular Hgb Conc. 32.3 g/dL (32.0-36.0); Mean Corpuscular Volume 105.9 fL (80.0-100.0); Red Blood Cells 2.19 10^6/uL (4.0-5.20); White Blood Cell 13.1 10^3/uL (4.4-10.8)
[2022-04-06 05:29] LABS: Basophils % (manual) 0 (0.0-2.0); Blast Cells 0; Eosinophils % (manual) 0 (0-7); Metamyelocytes % 0; Myelocytes % 0; Promyelocytes % 0; Reactive Lymphocytes 0
[2022-04-06 05:46] LABS: BUN/Creatinine Ratio 8.8; Calcium 7.5 mg/dL (8.5-10.1); Potassium 3.9 mmol/L (3.5-5.1)
[2022-04-06] MEDS: SODIUM CHLOR 0.9% PF (SALINE LOCK) 10ML VIAL/SYR IV SCH ×3 (06:29→22:00)
[2022-04-06] MEDS: MIDODRINE HCL 10 MG TAB PO SCH ×3 (06:58→17:09)
[2022-04-06] MEDS: PIPERACILLIN-TAZOB 3.375GM 100 ML IV SCH ×3 (06:58→22:39)
[2022-04-06] MEDS: SUCRALFATE 1 GM/10 ML ORAL SUSP PO SCH ×3 (06:58→16:44)
[2022-04-06] MEDS: LEVOTHYROXINE SODIUM 50 MCG TAB PO SCH (06:58)
[2022-04-06 07:30] LABS: Band Neutrophils % (manual) 1; Lymphocytes % (manual) 6 (10.0-50.0); Monocytes % (manual) 1 (0-12)
[2022-04-06] MEDS: POTASSIUM CHLORIDE 8 MEQ TAB PO SCH (09:09)
[2022-04-06] MEDS: HYDROCORTISONE 10 MG TAB PO SCH ×2 (09:09→22:37)
[2022-04-06] MEDS: HEPARIN SODIUM (PORCINE) 5000 UNITS/ML 1ML VIAL SC SCH ×2 (09:10→22:46)
[2022-04-06] MEDS: MAGNESIUM OXIDE 400 MG TAB PO SCH (09:10)
[2022-04-06] MEDS: PANTOPRAZOLE 40 MG TAB PO SCH ×2 (09:10→22:37)
[2022-04-06 09:21] VITALS: BP 111/74
[2022-04-06] MEDS: OXYCODONE W/ ACETAMINOPHEN 5/325MG TABLET PO PRN ×2 (09:28→22:38)
[2022-04-06 12:46] VITALS: BP 103/73
[2022-04-06 16:10] VITALS: BP 113/69
[2022-04-06 22:00] VITALS: BP 108/65
[2022-04-06] MEDS: MIRTAZAPINE 30 MG TAB PO SCH (22:37)
[2022-04-06] MEDS: ALPRAZolam 0.25 MG TAB PO PRN (22:37)
[2022-04-07 05:00] VITALS: BP 119/75
[2022-04-07] MEDS: SODIUM CHLOR 0.9% PF (SALINE LOCK) 10ML VIAL/SYR IV SCH ×2 (06:00→14:00)
[2022-04-07] MEDS: SUCRALFATE 1 GM/10 ML ORAL SUSP PO SCH ×2 (06:50→12:00)
[2022-04-07] MEDS: OXYCODONE W/ ACETAMINOPHEN 5/325MG TABLET PO PRN ×2 (06:50→12:11)
[2022-04-07] MEDS: MIDODRINE HCL 10 MG TAB PO SCH ×2 (06:50→12:01)
[2022-04-07] MEDS: LEVOTHYROXINE SODIUM 50 MCG TAB PO SCH (06:50)
[2022-04-07] MEDS: PIPERACILLIN-TAZOB 3.375GM 100 ML IV SCH ×2 (06:51→14:00)
[2022-04-07 08:50] VITALS: BP 121/78
[2022-04-07] MEDS: HYDROCORTISONE 10 MG TAB PO SCH (09:07)
[2022-04-07] MEDS: MAGNESIUM OXIDE 400 MG TAB PO SCH (09:08)
[2022-04-07] MEDS: PANTOPRAZOLE 40 MG TAB PO SCH (09:09)
[2022-04-07] MEDS ORDERED: POTASSIUM CHLORIDE 8 MEQ TAB PO SCH (10:00)
[2022-04-07 11:35] LABS: Mean Corpuscular Hemoglobin 34.2 pg (28.0-32.0); Mean Corpuscular Volume 107.1 fL (80.0-100.0)
[2022-04-07] MEDS ORDERED: POTA8TAB15 PO (11:36)
[2022-04-07] MEDS ORDERED: MID10T PO (11:36)
[2022-04-07] MEDS ORDERED: HYDR10T PO (11:36)
[2022-04-07] MEDS ORDERED: MAGN400T40 PO (11:36)
[2022-04-07 11:37] LABS: Hematocrit 25.9 % (36.0-46.0); Hemoglobin 8.3 g/dL (12.2-16.2); Red Blood Cells 2.42 10^6/uL (4.0-5.20); Red Cell Distribution Width 16.3 % (11.8-14.3); White Blood Cell 11.1 10^3/uL (4.4-10.8)
[2022-04-07 11:41] LABS: Calcium 7.7 mg/dL (8.5-10.1); Potassium 3.6 mmol/L (3.5-5.1)
[2022-04-07 11:45] LABS: BUN/Creatinine Ratio 6.3; Total Protein 5.2 g/dL (6.4-8.2)
[2022-04-07 11:51] LABS: Basophils % (manual) 0 (0.0-2.0); Blast Cells 0; Eosinophils % (manual) 0 (0-7); Metamyelocytes % 0; Myelocytes % 0; Promyelocytes % 0; Reactive Lymphocytes 0
[2022-04-07 12:47] VITALS: BP 138/75
[2022-04-07 12:56] VITALS: BP 138/75
[2022-04-07 18:56] LABS: Band Neutrophils % (manual) 4; Lymphocytes % (manual) 13 (10.0-50.0); Monocytes % (manual) 1 (0-12)
== END 2022-04-07 14:30 | disposition home health service (06) | DRG 130 ==
LOC: ER 14:14 → EDBD 14:14 → TELE 23:38 → DOU IN ICU 03-26 15:42 → ICU CENTRL 03-26 15:55 → TELE-WESTW 04-01 10:27
PROVIDERS: ADMIT Nurse Practitioner Family; ATTEND Hospitalist
PROC: 5A09357 Assistance with Respiratory Ventilation, Less than 24 Consecutive Hours, Continuous Positive Airway Pressure (ICD-10-PCS; 2022-03-25)
PROC: 5A0935A Assistance with Respiratory Ventilation, Less than 24 Consecutive Hours, High Flow/Velocity Cannula (ICD-10-PCS; 2022-03-25)
PROC: 5A1955Z Respiratory Ventilation, Greater than 96 Consecutive Hours (ICD-10-PCS; principal; 2022-03-26)
PROC: 0BH17EZ Insertion of Endotracheal Airway into Trachea, Via Natural or Artificial Opening (ICD-10-PCS; 2022-03-26)
PROC: 05H533Z Insertion of Infusion Device into Right Subclavian Vein, Percutaneous Approach (ICD-10-PCS; 2022-03-26)
PROC: 0W9B30Z Drainage of Left Pleural Cavity with Drainage Device, Percutaneous Approach (ICD-10-PCS; 2022-03-26)
PROC: 5A09357 Assistance with Respiratory Ventilation, Less than 24 Consecutive Hours, Continuous Positive Airway Pressure (ICD-10-PCS; 2022-03-26)
PROC: 5A1935Z Respiratory Ventilation, Less than 24 Consecutive Hours (ICD-10-PCS; 2022-04-01)
DX: J96.01 Acute respiratory failure with hypoxia (principal); N17.9 Acute kidney failure, unspecified; J18.9 Pneumonia, unspecified organism; E27.40 Unspecified adrenocortical insufficiency; E77.8 Other disorders of glycoprotein metabolism; E88.09 Other disorders of plasma-protein metabolism, not elsewhere classified; J44.0 Chronic obstructive pulmonary disease with (acute) lower respiratory infection; D64.9 Anemia, unspecified; E03.9 Hypothyroidism, unspecified; J93.9 Pneumothorax, unspecified; F41.9 Anxiety disorder, unspecified; R91.1 Solitary pulmonary nodule; I95.1 Orthostatic hypotension; D72.829 Elevated white blood cell count, unspecified; M54.30 Sciatica, unspecified side; I25.10 Atherosclerotic heart disease of native coronary artery without angina pectoris; Z20.822 Contact with and (suspected) exposure to COVID-19; K21.9 Gastro-esophageal reflux disease without esophagitis; I89.0 Lymphedema, not elsewhere classified; J98.11 Atelectasis; Z98.84 Bariatric surgery status; Z82.49 Family history of ischemic heart disease and other diseases of the circulatory system; Z82.5 Family history of asthma and other chronic lower respiratory diseases; Z83.3 Family history of diabetes mellitus; Z86.718 Personal history of other venous thrombosis and embolism; Z86.73 Personal history of transient ischemic attack (TIA), and cerebral infarction without residual deficits; Z79.899 Other long term (current) drug therapy; I25.2 Old myocardial infarction; Z90.49 Acquired absence of other specified parts of digestive tract; Z90.710 Acquired absence of both cervix and uterus; Z98.82 Breast implant status; Z88.5 Allergy status to narcotic agent
CPT/HCPCS: 36415; 36600; 70450; 71045; 71250; 80048; 80053; 81001; 81003; 81015; 82270; 82533; 82570; 82607; 82746; 82805; 83520; 83605; 83735; 83880; 84100; 84132; 84155; 84156; 84165; 84300; 84443; 84484; 85007; 85025; 85027; 85048; 85301; 85610; 85730; 86038; 86147; 86160; 86225; 86256; 86703; 86790; 86850; 86900; 86901; 87040; 87070; 87081; 87205; 87340; 87426; 87804; 92610; 93005; 93970; 94002; 94003; 94640; 94660; 96365; 96367; 96375; 97110; 97116; 97163; 97530; 99291; C1724; G0378; J0696; J1756; J1956; J2001; J2250; J2405; J2543; J2704; J3480; J3490; J7060; P9047

== ENCOUNTER 2022-06-10 12:19 | Inpatient (IN) | payer MEDICAID ==
[~2022-06-10] VITALS: Ht 162.6 cm; Wt 48.0 kg
[~2022-06-10 12:19] MED LIST changes: -FURO1TAB33 PO; +MAGN400T40 PO; +POTA8TAB15 PO; -SPIR25TA8 PO
[2022-06-10] MEDS ORDERED: SODIUM CHLORIDE 0.9% 500 ML IV ONE (12:45)
[2022-06-10 13:36] LABS: Eosinophils # (auto) 0 10 ^3/uL (0-0.8)
[2022-06-10 13:50] LABS: Albumin 1.8 g/dL (3.4-5.0); Anion Gap 8 (5-15); Blood Urea Nitrogen 41 mg/dL (7-18); Calcium 7.3 mg/dL (8.5-10.1); Carbon Dioxide 21 mmol/L (21-32); Chloride 119 mmol/L (98-107); Glucose 85 mg/dL (74-106); Magnesium 1.9 mg/dL (1.6-2.6); Potassium 4.4 mmol/L (3.5-5.1); Sodium 148 mmol/L (136-145)
[2022-06-10 13:52] LABS: Alanine Aminotransferase 16 U/L (13-56); Aspartate Aminotransferase 23 U/L (15-37); BUN/Creatinine Ratio 30.4; GFR African American 51 mL/min; GFR Non-African American 43 mL/min
[2022-06-10 13:54] LABS: Alkaline Phosphatase 156 U/L (45-117); Bilirubin, Total 1.1 mg/dL (0.2-1.0); Total Protein 5.2 g/dL (6.4-8.2)
[2022-06-10 14:02] LABS: Basophils # (auto) 0 10 ^3/uL (0-0.2); Basophils % (auto) 0.1 % (0.0-2.0); Eosinophils % (auto) 0.3 % (0.0-7.0); Hematocrit 45.8 % (36.0-46.0); Hemoglobin 13.8 g/dL (12.2-16.2); Lymphocytes # (auto) 0.5 10 ^3/uL (0.4-5.4); Lymphocytes % (auto) 5.7 % (10.0-50.0); Mean Corpuscular Hemoglobin 30.9 pg (28.0-32.0); Mean Corpuscular Volume 102.8 fL (80.0-100.0); Monocytes # (auto) 0.2 10 ^3/uL (0-1.3); Monocytes % (auto) 2.5 % (0.0-12.0); Neutrophils # (auto) 7.3 10 ^3/uL (1.6-8.6); Neutrophils % (auto) 91.4 % (37.0-80.0); Red Blood Cells 4.46 10^6/uL (4.0-5.20)
[2022-06-10 14:06] LABS: Red Cell Distribution Width 21.8 % (11.8-14.3)
[2022-06-10] MEDS ORDERED: NITROGLYCERIN 0.4 MG SL TAB SL PRN (16:30)
[2022-06-10] MEDS ORDERED: ACETAMINOPHEN 325 MG TAB PO PRN (16:30)
[2022-06-10] MEDS ORDERED: DOCUSATE SOD 100 MG CAP PO PRN (16:30)
[2022-06-10 16:47] LABS: Urine Bacteria NONE SEEN /hpf (None Seen); Urine Blood Negative /uL (Negative); Urine Hyaline Cast FEW /lpf (0 - 2); Urine Specific Gravity 1.018 (1.001-1.035); Urine WBC 3 /hpf (0 - 5)
[2022-06-10] MEDS: MIDODRINE HCL 10 MG TAB PO SCH (18:09)
[2022-06-10] MEDS ORDERED: IPRATROPIUM BROM 0.5 MG/2.5ML INH SOL NEB PRN (21:15)
[2022-06-10] MEDS ORDERED: ALBUTEROL SULF 2.5 MG/0.5ML(0.5%) NEB SOLN NEB PRN (21:15)
[2022-06-10 21:19] VITALS: BP 95/65
[2022-06-10] MEDS: HYDROcodone-ACET 5/325MG TAB PO PRN (21:46)
[2022-06-10] MEDS: SODIUM CHLOR 0.9% PF (SALINE LOCK) 10ML VIAL/SYR IV SCH (22:00)
[2022-06-10] MEDS: cefTRIAXone 1GM/50ML D5W 50 ML IV SCH (22:32)
[2022-06-11] MEDS ORDERED: ALPRAZolam 0.5 MG TAB PO PRN (00:45)
[2022-06-11] MEDS: AZITHROMYCIN 500MG/ 250ML 250 ML IV SCH ×2 (00:51→10:49)
[2022-06-11] MEDS: SODIUM CHLOR 0.9% PF (SALINE LOCK) 10ML VIAL/SYR IV SCH ×3 (06:08→22:03)
[2022-06-11] MEDS: MIDODRINE HCL 10 MG TAB PO SCH ×3 (06:13→18:48)
[2022-06-11 06:34] LABS: Alanine Aminotransferase 13 U/L (13-56); Albumin 1.6 g/dL (3.4-5.0); Anion Gap 6 (5-15); BUN/Creatinine Ratio 30.3; Blood Urea Nitrogen 33 mg/dL (7-18); Calcium 7.6 mg/dL (8.5-10.1); Carbon Dioxide 20 mmol/L (21-32); Chloride 121 mmol/L (98-107); GFR African American 66 mL/min; GFR Non-African American 54 mL/min; Glucose 74 mg/dL (74-106); Potassium 3.9 mmol/L (3.5-5.1); Sodium 147 mmol/L (136-145)
[2022-06-11] MEDS: LEVOTHYROXINE SODIUM 50 MCG TAB PO SCH (06:36)
[2022-06-11 06:46] LABS: Alkaline Phosphatase 148 U/L (45-117); Aspartate Aminotransferase 17 U/L (15-37); Bilirubin, Total 0.8 mg/dL (0.2-1.0)
[2022-06-11 07:22] LABS: Basophils # (auto) 0 10 ^3/uL (0-0.2); Basophils % (auto) 0.2 % (0.0-2.0); Eosinophils # (auto) 0.1 10 ^3/uL (0-0.8); Eosinophils % (auto) 0.7 % (0.0-7.0); Lymphocytes # (auto) 1.4 10 ^3/uL (0.4-5.4); Lymphocytes % (auto) 10.8 % (10.0-50.0); Mean Corpuscular Hemoglobin 31.2 pg (28.0-32.0); Mean Corpuscular Hgb Conc. 32.2 g/dL (32.0-36.0); Mean Corpuscular Volume 96.9 fL (80.0-100.0); Monocytes # (auto) 0.5 10 ^3/uL (0-1.3); Monocytes % (auto) 4.2 % (0.0-12.0); Neutrophils # (auto) 10.8 10 ^3/uL (1.6-8.6); Neutrophils % (auto) 84.1 % (37.0-80.0); Red Blood Cells 2.89 10^6/uL (4.0-5.20); White Blood Cell 12.9 10^3/uL (4.4-10.8)
[2022-06-11] MEDS: PANTOPRAZOLE 40 MG/10 ML VIAL INJ IV SCH (10:47)
[2022-06-11] MEDS: MAGNESIUM OXIDE 400 MG TAB PO SCH (10:47)
[2022-06-11] MEDS: cefTRIAXone 1GM/50ML D5W 50 ML IV SCH (10:47)
[2022-06-11] MEDS: HYDROcodone-ACET 5/325MG TAB PO PRN ×2 (14:16→20:19)
[2022-06-11] MEDS ORDERED: NOREPINEPHRINE 8 MG/250ML KIT 250 ML IV ONE (16:41)
[2022-06-11] MEDS: NOREPINEPHRINE 8 MG/250ML KIT 250 ML IV SCH (16:45)
[2022-06-11] MEDS ORDERED: VANCOMYCIN PER PHARMACY 0 MG IV SCH (17:45)
[2022-06-11] MEDS ORDERED: VANCOMYCIN 1GM/250ML 250 ML IV ONE (17:45)
[2022-06-11] MEDS ORDERED: ALBUMIN 25% 100 ML IV ONE (18:00)
[2022-06-11] MEDS ORDERED: ALBUTEROL MEDNEB 2.5 mg/3ml NEB ONE (18:22)
[2022-06-11] MEDS: ONDANSETRON HCL 4 MG/2 ML VIAL IV PRN (21:22)
[2022-06-11] MEDS: MORPHINE SULFATE INJ 2 MG/ml SYRG IV PRN (21:27)
[2022-06-11] MEDS: PIPERACILLIN-TAZOB 3.375GM 100 ML IV SCH (22:07)
[2022-06-11] MEDS: MELATONIN 5 MG TAB PO SCH (22:07)
[2022-06-12] MEDS: HYDROcodone-ACET 5/325MG TAB PO PRN ×2 (01:26→20:11)
[2022-06-12] MEDS: MIDODRINE HCL 10 MG TAB PO SCH ×3 (05:55→18:06)
[2022-06-12] MEDS: PIPERACILLIN-TAZOB 3.375GM 100 ML IV SCH ×3 (05:55→21:41)
[2022-06-12] MEDS: SODIUM CHLOR 0.9% PF (SALINE LOCK) 10ML VIAL/SYR IV SCH ×3 (05:58→21:41)
[2022-06-12 06:39] LABS: Basophils # (auto) 0 10 ^3/uL (0-0.2); Basophils % (auto) 0.4 % (0.0-2.0); Eosinophils # (auto) 0.1 10 ^3/uL (0-0.8); Eosinophils % (auto) 1.1 % (0.0-7.0); Hematocrit 25.4 % (36.0-46.0); Hemoglobin 8.6 g/dL (12.2-16.2); Lymphocytes # (auto) 1.9 10 ^3/uL (0.4-5.4); Lymphocytes % (auto) 21.7 % (10.0-50.0); Mean Corpuscular Hemoglobin 32.5 pg (28.0-32.0); Mean Corpuscular Hgb Conc. 33.8 g/dL (32.0-36.0); Mean Corpuscular Volume 96.1 fL (80.0-100.0); Monocytes # (auto) 0.5 10 ^3/uL (0-1.3); Monocytes % (auto) 6.1 % (0.0-12.0); Neutrophils # (auto) 6.3 10 ^3/uL (1.6-8.6); Neutrophils % (auto) 70.7 % (37.0-80.0); Nucleated Red Blood Cells % 0.1 %; Red Blood Cells 2.64 10^6/uL (4.0-5.20); White Blood Cell 8.9 10^3/uL (4.4-10.8)
[2022-06-12 06:40] LABS: Red Cell Distribution Width 20.5 % (11.8-14.3)
[2022-06-12 06:51] LABS: Calcium 7.5 mg/dL (8.5-10.1); Potassium 3.2 mmol/L (3.5-5.1)
[2022-06-12 06:54] LABS: BUN/Creatinine Ratio 23.1; Bilirubin, Total 0.9 mg/dL (0.2-1.0); Total Protein 4.8 g/dL (6.4-8.2)
[2022-06-12] MEDS: LEVOTHYROXINE SODIUM 50 MCG TAB PO SCH (07:12)
[2022-06-12 08:51] LABS: INR 1.28 (0.9-1.15); Partial Thromboplastin Time 38.9 sec (24.6-33.4)
[2022-06-12] MEDS: MAGNESIUM OXIDE 400 MG TAB PO SCH (10:08)
[2022-06-12] MEDS: PANTOPRAZOLE 40 MG/10 ML VIAL INJ IV SCH (10:08)
[2022-06-12] MEDS: AZITHROMYCIN 500MG/ 250ML 250 ML IV SCH (10:08)
[2022-06-12] MEDS ORDERED: POTASSIUM EFFERVESENT TAB 25 MEQ PO ONE (12:00)
[2022-06-12] MEDS: HYDROCORTISONE SOD SUCC 100 MG/2ML INJ VIAL IV SCH ×2 (14:20→21:41)
[2022-06-12] MEDS: NOREPINEPHRINE 8 MG/250ML KIT 250 ML IV SCH (16:45)
[2022-06-12] MEDS ORDERED: CALCIUM CARB 500 MG CHEW TAB PO PRN (19:15)
[2022-06-12] MEDS: VANCOMYCIN 1GM/250ML 250 ML IV SCH (20:11)
[2022-06-12] MEDS: ONDANSETRON HCL 4 MG/2 ML VIAL IV PRN (21:41)
[2022-06-12] MEDS: MELATONIN 5 MG TAB PO SCH (21:41)
[2022-06-12] MEDS: MORPHINE SULFATE INJ 2 MG/ml SYRG IV PRN (21:42)
[2022-06-13] MEDS: ONDANSETRON HCL 4 MG/2 ML VIAL IV PRN (04:24)
[2022-06-13] MEDS: MORPHINE SULFATE INJ 2 MG/ml SYRG IV PRN (04:26)
[2022-06-13] MEDS: HYDROCORTISONE SOD SUCC 100 MG/2ML INJ VIAL IV SCH ×3 (06:40→21:57)
[2022-06-13] MEDS: SODIUM CHLOR 0.9% PF (SALINE LOCK) 10ML VIAL/SYR IV SCH ×3 (06:41→21:55)
[2022-06-13] MEDS: PIPERACILLIN-TAZOB 3.375GM 100 ML IV SCH ×3 (06:42→22:30)
[2022-06-13] MEDS: OXYCODONE W/ ACETAMINOPHEN 5/325MG TABLET PO PRN ×2 (07:02→12:41)
[2022-06-13] MEDS: MIDODRINE HCL 10 MG TAB PO SCH ×3 (07:03→17:55)
[2022-06-13] MEDS: LEVOTHYROXINE SODIUM 50 MCG TAB PO SCH (07:03)
[2022-06-13] MEDS: AZITHROMYCIN 250 MG TAB PO SCH (10:04)
[2022-06-13] MEDS: PANTOPRAZOLE 40 MG TAB PO SCH (10:04)
[2022-06-13] MEDS: MAGNESIUM OXIDE 400 MG TAB PO SCH (10:04)
[2022-06-13 10:32] LABS: BUN/Creatinine Ratio 13.8; Calcium 8.1 mg/dL (8.5-10.1); Potassium 4.2 mmol/L (3.5-5.1)
[2022-06-13] MEDS: NOREPINEPHRINE 8 MG/250ML KIT 250 ML IV SCH (17:51)
[2022-06-13 18:45] VITALS: BP 100/58
[2022-06-13 20:00] VITALS: BP 100/58
[2022-06-13] MEDS: VANCOMYCIN 1GM/250ML 250 ML IV SCH (20:00)
[2022-06-13 21:49] VITALS: BP 88/60
[2022-06-13] MEDS: MELATONIN 5 MG TAB PO SCH (21:57)
[2022-06-14 04:50] VITALS: BP 82/55
[2022-06-14] MEDS: HYDROCORTISONE SOD SUCC 100 MG/2ML INJ VIAL IV SCH ×2 (05:17→13:52)
[2022-06-14] MEDS: PIPERACILLIN-TAZOB 3.375GM 100 ML IV SCH ×2 (05:17→13:53)
[2022-06-14] MEDS: SODIUM CHLOR 0.9% PF (SALINE LOCK) 10ML VIAL/SYR IV SCH ×2 (05:17→13:52)
[2022-06-14] MEDS: MIDODRINE HCL 10 MG TAB PO SCH ×2 (05:18→12:22)
[2022-06-14] MEDS ORDERED: LEVOTHYROXINE SODIUM 112 MCG TAB PO SCH (07:00)
[2022-06-14 08:00] VITALS: BP 100/85
[2022-06-14] MEDS: OXYCODONE W/ ACETAMINOPHEN 5/325MG TABLET PO PRN (08:47)
[2022-06-14 09:00] VITALS: BP 100/58
[2022-06-14] MEDS: AZITHROMYCIN 250 MG TAB PO SCH (09:42)
[2022-06-14] MEDS: MAGNESIUM OXIDE 400 MG TAB PO SCH (09:42)
[2022-06-14] MEDS: PANTOPRAZOLE 40 MG TAB PO SCH (09:42)
[2022-06-14 12:54] VITALS: BP 93/66
[2022-06-14] MEDS ORDERED: IPR002IS NEB (15:05)
[2022-06-14] MEDS ORDERED: ALB5IS NEB (15:05)
[2022-06-14] MEDS ORDERED: ALBUAER3 IN (15:05)
[2022-06-14] MEDS ORDERED: AMOX-277 PO (15:05)
[2022-06-14 15:28] VITALS: BP 93/66
== END 2022-06-14 16:35 | disposition home or self-care (01) | DRG 133 ==
LOC: EDBD 12:19 → ER 12:19 → TELE 16:28 → TELE-WESTW 06-13 18:32
PROVIDERS: ADMIT Nurse Practitioner Family; ATTEND Internal Medicine
DX: J96.21 Acute and chronic respiratory failure with hypoxia (principal); R57.9 Shock, unspecified; E44.0 Moderate protein-calorie malnutrition; I11.0 Hypertensive heart disease with heart failure; I50.9 Heart failure, unspecified; Z20.822 Contact with and (suspected) exposure to COVID-19; D64.9 Anemia, unspecified; E03.9 Hypothyroidism, unspecified; J98.11 Atelectasis; F41.9 Anxiety disorder, unspecified; G62.9 Polyneuropathy, unspecified; I25.10 Atherosclerotic heart disease of native coronary artery without angina pectoris; Z82.49 Family history of ischemic heart disease and other diseases of the circulatory system; Z88.8 Allergy status to other drugs, medicaments and biological substances; Z82.5 Family history of asthma and other chronic lower respiratory diseases; Z83.3 Family history of diabetes mellitus; Z86.73 Personal history of transient ischemic attack (TIA), and cerebral infarction without residual deficits; Z90.710 Acquired absence of both cervix and uterus; Z98.82 Breast implant status; I25.2 Old myocardial infarction; Z68.1 Body mass index [BMI] 19.9 or less, adult; J90 Pleural effusion, not elsewhere classified
CPT/HCPCS: 36415; 70450; 71045; 71250; 76604; 80048; 80053; 81001; 82565; 83605; 83735; 83880; 84439; 84443; 84484; 85025; 85610; 85730; 87040; 87426; 93005; 93970; 94640; 96360; C9113; G0378; J0696; J2405; J2543; P9047

== ENCOUNTER 2022-09-06 09:50 | Inpatient (IN) | payer MEDICAID ==
[~2022-09-06] VITALS: Ht 165.1 cm; Wt 59.7 kg
[~2022-09-06 09:50] MED LIST changes: +ALB5IS NEB; +ALBUAER3 IN; +AMOX-277 PO; +IPR002IS NEB
[2022-09-06 10:38] LABS: Basophils # (auto) 0 10 ^3/uL (0-0.2); Basophils % (auto) 0.9 % (0.0-2.0); Eosinophils # (auto) 0.1 10 ^3/uL (0-0.8); Eosinophils % (auto) 1.4 % (0.0-7.0); Hematocrit 27.9 % (36.0-46.0); Hemoglobin 8.8 g/dL (12.2-16.2); Lymphocytes % (auto) 24.8 % (10.0-50.0); Mean Corpuscular Hemoglobin 33.5 pg (28.0-32.0); Mean Corpuscular Hgb Conc. 31.6 g/dL (32.0-36.0); Mean Corpuscular Volume 105.9 fL (80.0-100.0); Monocytes # (auto) 0.4 10 ^3/uL (0-1.3); Monocytes % (auto) 9.9 % (0.0-12.0); Neutrophils # (auto) 2.5 10 ^3/uL (1.6-8.6); Nucleated Red Blood Cells % 0.4 %; Red Blood Cells 2.64 10^6/uL (4.0-5.20); Red Cell Distribution Width 19.7 % (11.8-14.3); White Blood Cell 3.9 10^3/uL (4.4-10.8)
[2022-09-06 11:07] LABS: Albumin 1.2 g/dL (3.4-5.0); Calcium 7.2 mg/dL (8.5-10.1); Magnesium 2.1 mg/dL (1.6-2.6)
[2022-09-06 11:16] LABS: Bilirubin, Total 0.8 mg/dL (0.2-1.0); Potassium 4.1 mmol/L (3.5-5.1); Total Protein 3.8 g/dL (6.4-8.2)
[2022-09-06 11:23] LABS: INR 1.49 (0.9-1.15); Partial Thromboplastin Time 34.2 sec (24.6-33.4)
[2022-09-06] MEDS ORDERED: ONDANSETRON ODT 4 MG TAB PO ONE (13:30)
[2022-09-06] MEDS ORDERED: MORPHINE SULFATE INJ 2 MG/ml SYRG IV PRN (15:00)
[2022-09-06] MEDS ORDERED: ACETAMINOPHEN 325 MG TAB PO PRN (15:00)
[2022-09-06] MEDS ORDERED: NITROGLYCERIN 0.4 MG SL TAB SL PRN (15:00)
[2022-09-06] MEDS ORDERED: IOHEXOL 350 MG/ML 100ML IJ ONE (15:07)
[2022-09-06] MEDS ORDERED: SOD CHL 0.45% 1,000 ML IV SCH ×2 (16:15)
[2022-09-06] MEDS ORDERED: SODIUM CHLORIDE 0.9% 500 ML IV ONE (16:30)
[2022-09-06] MEDS ORDERED: ENOXAPARIN SOD 100 MG/1 ML SYRINGE SC ONE (17:15)
[2022-09-06] MEDS: ENOXAPARIN SOD 60 MG/0.6 ML SYRINGE SC SCH (17:58)
[2022-09-06] MEDS: MIDODRINE HCL 10 MG TAB PO SCH (18:04)
[2022-09-06 18:18] LABS: Urine Bacteria NONE SEEN /hpf (None Seen); Urine Blood Negative /uL (Negative); Urine Hyaline Cast FEW /lpf (0 - 2); Urine WBC 1 /hpf (0 - 5)
[2022-09-06 19:28] LABS: % Iron Saturation 129.3 % (15-50)
[2022-09-06] MEDS ORDERED: ALBUTEROL SULF 2.5 MG/0.5ML(0.5%) NEB SOLN NEB PRN (19:30)
[2022-09-06] MEDS: SOD CHL 0.45% 1,000 ML IV SCH (19:30)
[2022-09-06] MEDS ORDERED: MELATONIN 5 MG TAB PO ONE (21:00)
[2022-09-06] MEDS: PREGABALIN CAPSULE 75 MG CAP PO SCH (21:36)
[2022-09-06] MEDS: PANTOPRAZOLE 40 MG TAB PO SCH (21:36)
[2022-09-06] MEDS ORDERED: HEPARIN SODIUM (PORCINE) 5000 UNITS/ML 1ML VIAL SC SCH (22:00)
[2022-09-07] MEDS ORDERED: MIDODRINE HCL 10 MG TAB PO ONE ×2 (02:15→04:15)
[2022-09-07 05:11] LABS: Basophils # (auto) 0 10 ^3/uL (0-0.2); Eosinophils # (auto) 0.1 10 ^3/uL (0-0.8); Hemoglobin 7.5 g/dL (12.2-16.2); Lymphocytes # (auto) 1.5 10 ^3/uL (0.4-5.4); Monocytes # (auto) 0.3 10 ^3/uL (0-1.3); Neutrophils # (auto) 1.2 10 ^3/uL (1.6-8.6); White Blood Cell 3.2 10^3/uL (4.4-10.8)
[2022-09-07 05:13] LABS: Eosinophils % (auto) 1.6 % (0.0-7.0); Hematocrit 22.8 % (36.0-46.0); Lymphocytes % (auto) 48.1 % (10.0-50.0); Mean Corpuscular Hemoglobin 33.9 pg (28.0-32.0); Mean Corpuscular Hgb Conc. 32.9 g/dL (32.0-36.0); Monocytes % (auto) 10.7 % (0.0-12.0); Neutrophils % (auto) 38.6 % (37.0-80.0); Nucleated Red Blood Cells % 0.3 %; Red Blood Cells 2.21 10^6/uL (4.0-5.20); Red Cell Distribution Width 19.1 % (11.8-14.3)
[2022-09-07] MEDS: SOD CHL 0.45% 1,000 ML IV SCH ×2 (05:15→17:37)
[2022-09-07 05:16] LABS: BUN/Creatinine Ratio 18.5 (10.0-20.0)
[2022-09-07 05:18] LABS: Bilirubin, Total 0.6 mg/dL (0.2-1.0); Total Protein 3.4 g/dL (6.4-8.2)
[2022-09-07] MEDS: MIDODRINE HCL 10 MG TAB PO SCH ×3 (06:22→17:36)
[2022-09-07] MEDS: LEVOTHYROXINE SODIUM 50 MCG TAB PO SCH (06:22)
[2022-09-07] MEDS: ENOXAPARIN SOD 60 MG/0.6 ML SYRINGE SC SCH ×2 (06:23→17:36)
[2022-09-07] MEDS: PREGABALIN CAPSULE 75 MG CAP PO SCH ×2 (10:13→23:23)
[2022-09-07] MEDS: PANTOPRAZOLE 40 MG TAB PO SCH ×2 (10:14→23:24)
[2022-09-07] MEDS: MAGNESIUM OXIDE 400 MG TAB PO SCH (10:14)
[2022-09-07] MEDS: MIRTAZAPINE 30 MG TAB PO SCH (10:14)
[2022-09-07 14:40] VITALS: BP 124/80
[2022-09-07 15:45] VITALS: BP 100/67
[2022-09-07 16:41] VITALS: BP 97/60
[2022-09-07 20:00] VITALS: BP 100/62
[2022-09-07 21:58] LABS: Thyroid Stimulating Hormone 5.92 uIU/mL (0.358-3.74)
[2022-09-07 22:00] VITALS: BP 100/62
[2022-09-07] MEDS ORDERED: ONDANSETRON ODT 4 MG TAB PO PRN (23:00)
[2022-09-07] MEDS: HYDROcodone-ACET 5/325MG TAB PO PRN (23:23)
[2022-09-08] VITALS (8 sets, daily range): BP systolic 65–135; BP diastolic 41–81
[2022-09-08] MEDS: SOD CHL 0.45% 1,000 ML IV SCH ×2 (01:15→02:56)
[2022-09-08] MEDS: MIDODRINE HCL 10 MG TAB PO SCH ×3 (06:00→17:58)
[2022-09-08] MEDS: LEVOTHYROXINE SODIUM 50 MCG TAB PO SCH (06:01)
[2022-09-08] MEDS: ENOXAPARIN SOD 60 MG/0.6 ML SYRINGE SC SCH ×2 (06:02→17:45)
[2022-09-08] MEDS: cefTRIAXone 1GM/50ML D5W 50 ML IV SCH (10:18)
[2022-09-08] MEDS: PANTOPRAZOLE 40 MG TAB PO SCH ×2 (10:18→21:33)
[2022-09-08] MEDS: PREGABALIN CAPSULE 75 MG CAP PO SCH ×2 (10:18→21:34)
[2022-09-08] MEDS: MIRTAZAPINE 30 MG TAB PO SCH (10:18)
[2022-09-08] MEDS: MAGNESIUM OXIDE 400 MG TAB PO SCH (10:18)
[2022-09-08] MEDS ORDERED: HYDROCORTISONE ACET 25 MG RECTAL SUPP PR ONE (17:00)
[2022-09-08] MEDS ORDERED: TEMAZEPAM 15 MG CAP PO ONE (21:00)
[2022-09-08] MEDS: HYDROCORTISONE ACET 25 MG RECTAL SUPP PR SCH (21:34)
[2022-09-09] MEDS: SOD CHL 0.45% 1,000 ML IV SCH ×4 (01:34→21:20)
[2022-09-09 05:00] VITALS: BP_SYST 58; BP_SYST 70; BP_SYST 90; BP_DIAS 32; BP_DIAS 50; BP_DIAS 63
[2022-09-09] MEDS: MIDODRINE HCL 10 MG TAB PO SCH ×3 (05:13→18:26)
[2022-09-09] MEDS: ENOXAPARIN SOD 60 MG/0.6 ML SYRINGE SC SCH ×2 (05:13→17:22)
[2022-09-09] MEDS: LEVOTHYROXINE SODIUM 50 MCG TAB PO SCH (06:11)
[2022-09-09 06:40] LABS: Basophils # (auto) 0 10 ^3/uL (0-0.2); Eosinophils # (auto) 0 10 ^3/uL (0-0.8); Hemoglobin 7.5 g/dL (12.2-16.2); Lymphocytes # (auto) 1.7 10 ^3/uL (0.4-5.4); Monocytes # (auto) 0.2 10 ^3/uL (0-1.3); Neutrophils # (auto) 1.4 10 ^3/uL (1.6-8.6); White Blood Cell 3.4 10^3/uL (4.4-10.8)
[2022-09-09 06:41] LABS: Basophils % (auto) 0.6 % (0.0-2.0); Eosinophils % (auto) 1.2 % (0.0-7.0); Hematocrit 22.8 % (36.0-46.0); Lymphocytes % (auto) 50.1 % (10.0-50.0); Mean Corpuscular Hgb Conc. 32.8 g/dL (32.0-36.0); Mean Corpuscular Volume 103.6 fL (80.0-100.0); Monocytes % (auto) 6.5 % (0.0-12.0); Neutrophils % (auto) 41.6 % (37.0-80.0); Nucleated Red Blood Cells % 0.4 %; Red Cell Distribution Width 18.7 % (11.8-14.3)
[2022-09-09] MEDS: cefTRIAXone 1GM/50ML D5W 50 ML IV SCH (08:40)
[2022-09-09] MEDS: MAGNESIUM OXIDE 400 MG TAB PO SCH (08:49)
[2022-09-09] MEDS: PREGABALIN CAPSULE 75 MG CAP PO SCH ×2 (08:49→21:19)
[2022-09-09] MEDS: PANTOPRAZOLE 40 MG TAB PO SCH ×2 (08:49→21:19)
[2022-09-09] MEDS: MIRTAZAPINE 30 MG TAB PO SCH (08:49)
[2022-09-09] MEDS: HYDROCORTISONE ACET 25 MG RECTAL SUPP PR SCH ×2 (08:52→21:20)
[2022-09-09 09:00] VITALS: BP 100/61
[2022-09-09 11:40] LABS: Folate (Folic Acid) 10.23 ng/mL (5.38-24)
[2022-09-09 12:00] VITALS: BP_SYST 101; BP_SYST 106; BP_SYST 82; BP_DIAS 59; BP_DIAS 73
[2022-09-09 13:00] VITALS: BP 119/79
[2022-09-09] MEDS: HYDROcodone-ACET 5/325MG TAB PO PRN ×2 (13:45→21:22)
[2022-09-09 17:00] VITALS: BP 120/77
[2022-09-09 21:56] VITALS: BP_SYST 65; BP_SYST 95; BP_DIAS 64
[2022-09-10 05:00] VITALS: BP_SYST 89; BP_SYST 93; BP_SYST 95; BP_DIAS 44; BP_DIAS 57; BP_DIAS 59
[2022-09-10] MEDS: LEVOTHYROXINE SODIUM 50 MCG TAB PO SCH (06:01)
[2022-09-10] MEDS: MIDODRINE HCL 10 MG TAB PO SCH ×2 (06:01→11:24)
[2022-09-10] MEDS: HYDROcodone-ACET 5/325MG TAB PO PRN (06:01)
[2022-09-10] MEDS: ENOXAPARIN SOD 60 MG/0.6 ML SYRINGE SC SCH ×2 (06:02→14:52)
[2022-09-10] MEDS: PREGABALIN CAPSULE 75 MG CAP PO SCH (08:10)
[2022-09-10] MEDS: cefTRIAXone 1GM/50ML D5W 50 ML IV SCH (08:10)
[2022-09-10] MEDS: PANTOPRAZOLE 40 MG TAB PO SCH (08:11)
[2022-09-10] MEDS: MIRTAZAPINE 30 MG TAB PO SCH (08:11)
[2022-09-10] MEDS: MAGNESIUM OXIDE 400 MG TAB PO SCH (08:11)
[2022-09-10] MEDS: HYDROCORTISONE ACET 25 MG RECTAL SUPP PR SCH (08:13)
[2022-09-10 09:00] VITALS: BP 109/66
[2022-09-10] MEDS ORDERED: APIX5TAB PO (10:27)
[2022-09-10 10:52] LABS: Basophils # (auto) 0 10 ^3/uL (0-0.2); Basophils % (auto) 1.2 % (0.0-2.0); Eosinophils # (auto) 0.1 10 ^3/uL (0-0.8); Eosinophils % (auto) 1.9 % (0.0-7.0); Hemoglobin 7.9 g/dL (12.2-16.2); Lymphocytes # (auto) 1.6 10 ^3/uL (0.4-5.4); Lymphocytes % (auto) 43.6 % (10.0-50.0); Mean Corpuscular Hemoglobin 33.4 pg (28.0-32.0); Mean Corpuscular Hgb Conc. 31.5 g/dL (32.0-36.0); Mean Corpuscular Volume 106.2 fL (80.0-100.0); Monocytes # (auto) 0.2 10 ^3/uL (0-1.3); Monocytes % (auto) 6.4 % (0.0-12.0); Neutrophils # (auto) 1.8 10 ^3/uL (1.6-8.6); Neutrophils % (auto) 46.9 % (37.0-80.0); Nucleated Red Blood Cells % 0.2 %; Red Blood Cells 2.36 10^6/uL (4.0-5.20); Red Cell Distribution Width 19.1 % (11.8-14.3); White Blood Cell 3.8 10^3/uL (4.4-10.8)
[2022-09-10 11:04] LABS: Calcium 6.9 mg/dL (8.5-10.1); Potassium 3.4 mmol/L (3.5-5.1)
[2022-09-10 12:42] VITALS: BP 128/81
[2022-09-10] MEDS: SOD CHL 0.45% 1,000 ML IV SCH (13:15)
[2022-09-10 13:18] VITALS: BP 128/81
== END 2022-09-10 15:33 | disposition home or self-care (01) | DRG 134 ==
LOC: EDBD 09:50 → ER 09:50 → EDUNIT# 09:50 → TELE 14:57 → TELE-WESTW 09-07 14:30
PROVIDERS: ADMIT Nurse Practitioner Family; ATTEND Internal Medicine Pulmonary Disease
PROC: 05H933Z Insertion of Infusion Device into Right Brachial Vein, Percutaneous Approach (ICD-10-PCS; principal; 2022-09-09)
PROC: B54MZZA Ultrasonography of Right Upper Extremity Veins, Guidance (ICD-10-PCS; 2022-09-09)
DX: I26.99 Other pulmonary embolism without acute cor pulmonale (principal); J96.21 Acute and chronic respiratory failure with hypoxia; D61.818 Other pancytopenia; I95.1 Orthostatic hypotension; E86.0 Dehydration; E06.3 Autoimmune thyroiditis; R91.1 Solitary pulmonary nodule; R91.8 Other nonspecific abnormal finding of lung field; F41.9 Anxiety disorder, unspecified; I25.10 Atherosclerotic heart disease of native coronary artery without angina pectoris; N18.9 Chronic kidney disease, unspecified; Z82.49 Family history of ischemic heart disease and other diseases of the circulatory system; Z82.5 Family history of asthma and other chronic lower respiratory diseases; Z85.42 Personal history of malignant neoplasm of other parts of uterus; Z83.3 Family history of diabetes mellitus; Z86.718 Personal history of other venous thrombosis and embolism; Z86.73 Personal history of transient ischemic attack (TIA), and cerebral infarction without residual deficits; Z90.710 Acquired absence of both cervix and uterus; Z98.84 Bariatric surgery status; Z90.49 Acquired absence of other specified parts of digestive tract; I50.40 Unspecified combined systolic (congestive) and diastolic (congestive) heart failure
CPT/HCPCS: 36415; 71045; 71260; 74177; 80048; 80053; 81001; 82270; 82607; 82746; 82962; 83010; 83540; 83550; 83615; 83735; 83880; 84132; 84155; 84165; 84436; 84443; 84484; 85025; 85045; 85379; 85610; 85730; 86304; 86850; 86880; 86900; 86901; 93005; 93306; 93970; 93971; 96360; 96361; G0378; J0696; Q0162

== ENCOUNTER 2022-09-23 11:39 | Inpatient (IN) | payer MEDICAID ==
[~2022-09-23] VITALS: Ht 165.1 cm; Wt 58.8 kg
[2022-09-23] VITALS (9 sets, daily range): BP systolic 89–120; BP diastolic 56–70
[~2022-09-23 11:39] MED LIST changes: -AMOX-277 PO; +APIX5TAB PO; +DOCU-265 PO; -DOCU100C10 PO; -MIRT-66 OR; +MIRT-94 OR
[2022-09-23] MEDS ORDERED: SODIUM CHLORIDE 0.9% 1,000 ML IV ONE ×2 (13:15→18:00)
[2022-09-23 13:35] LABS: Eosinophils # (auto) 0 10 ^3/uL (0-0.8); Lymphocytes # (auto) 1.2 10 ^3/uL (0.4-5.4); Mean Corpuscular Hgb Conc. 31.7 g/dL (32.0-36.0); Neutrophils # (auto) 2.9 10 ^3/uL (1.6-8.6)
[2022-09-23 13:38] LABS: Basophils # (auto) 0.1 10 ^3/uL (0-0.2); Basophils % (auto) 1.3 % (0.0-2.0); Eosinophils % (auto) 0.4 % (0.0-7.0); Hematocrit 20.3 % (36.0-46.0); Lymphocytes % (auto) 26.3 % (10.0-50.0); Mean Corpuscular Hemoglobin 33.8 pg (28.0-32.0); Mean Corpuscular Volume 106.7 fL (80.0-100.0); Monocytes # (auto) 0.3 10 ^3/uL (0-1.3); Monocytes % (auto) 5.8 % (0.0-12.0); Neutrophils % (auto) 66.2 % (37.0-80.0); Nucleated Red Blood Cells % 0.1 %; Red Cell Distribution Width 17.1 % (11.8-14.3); White Blood Cell 4.4 10^3/uL (4.4-10.8)
[2022-09-23 13:42] LABS: INR 1.52 (0.9-1.15)
[2022-09-23 13:51] LABS: Hemoglobin 6.4 g/dL (12.2-16.2)
[2022-09-23 14:31] LABS: Calcium 6.9 mg/dL (8.5-10.1); Potassium 4.8 mmol/L (3.5-5.1)
[2022-09-23 14:35] LABS: Bilirubin, Total 0.4 mg/dL (0.2-1.0); Total Protein 3.2 g/dL (6.4-8.2)
[2022-09-23] MEDS: NOREPINEPHRINE 8 MG/250ML KIT 250 ML IV SCH (14:55)
[2022-09-23] MEDS ORDERED: ACETAMINOPHEN 325 MG TAB PO ONE (15:30)
[2022-09-23] MEDS ORDERED: LIDOCAINE 1% (LOCAL ANESTH.) PF 5ml SDV ID ONE (17:15)
[2022-09-23] MEDS ORDERED: MORPHINE SULFATE INJ 2 MG/ml SYRG IV PRN (17:45)
[2022-09-23] MEDS ORDERED: ONDANSETRON HCL 4 MG/2 ML VIAL IV PRN (17:45)
[2022-09-23] MEDS ORDERED: NITROGLYCERIN 0.4 MG SL TAB SL PRN (17:45)
[2022-09-23] MEDS ORDERED: OCTREOTIDE ACETATE 100 MCG in SODIUM CHL 0.9% 50 ML IV ONE (17:45)
[2022-09-23] MEDS: PANTOPRAZOLE 40 MG/10 ML VIAL INJ IV SCH ×2 (18:40→22:40)
[2022-09-23] MEDS: MIDODRINE HCL 10 MG TAB PO SCH (18:40)
[2022-09-23] MEDS: OCTREOTIDE ACETATE 500 MCG in SODIUM CHL 0.9% 99 ML IV SCH (19:00)
[2022-09-23] MEDS: MIRTAZAPINE 30 MG TAB PO SCH (22:39)
[2022-09-23] MEDS: PREGABALIN CAPSULE 75 MG CAP PO SCH (22:40)
[2022-09-23] MEDS: ALPRAZolam 0.5 MG TAB PO SCH (22:40)
[2022-09-23] MEDS: SODIUM CHLORIDE 0.9% 1,000 ML IV SCH (22:40)
[2022-09-23] MEDS: SODIUM CHLOR 0.9% PF (SALINE LOCK) 10ML VIAL/SYR IV SCH (22:40)
[2022-09-24] VITALS (16 sets, daily range): BP systolic 93–128; BP diastolic 52–80
[2022-09-24] MEDS: OCTREOTIDE ACETATE 500 MCG in SODIUM CHL 0.9% 99 ML IV SCH ×3 (04:13→20:46)
[2022-09-24 04:48] LABS: Basophils # (auto) 0 10 ^3/uL (0-0.2); Basophils % (auto) 0.6 % (0.0-2.0); Eosinophils # (auto) 0 10 ^3/uL (0-0.8); Eosinophils % (auto) 0.5 % (0.0-7.0); Hematocrit 35.8 % (36.0-46.0); Hemoglobin 11.8 g/dL (12.2-16.2); Lymphocytes # (auto) 2.3 10 ^3/uL (0.4-5.4); Lymphocytes % (auto) 43.3 % (10.0-50.0); Mean Corpuscular Hemoglobin 32.4 pg (28.0-32.0); Monocytes # (auto) 0.4 10 ^3/uL (0-1.3); Monocytes % (auto) 6.5 % (0.0-12.0); Neutrophils # (auto) 2.6 10 ^3/uL (1.6-8.6); Neutrophils % (auto) 49.1 % (37.0-80.0); Nucleated Red Blood Cells % 0.4 %; Red Blood Cells 3.65 10^6/uL (4.0-5.20); Red Cell Distribution Width 19.9 % (11.8-14.3); White Blood Cell 5.4 10^3/uL (4.4-10.8)
[2022-09-24 05:00] LABS: Calcium 6.9 mg/dL (8.5-10.1); Potassium 4.5 mmol/L (3.5-5.1)
[2022-09-24 05:07] LABS: Total Protein 3.7 g/dL (6.4-8.2)
[2022-09-24] MEDS: PREGABALIN CAPSULE 75 MG CAP PO SCH ×3 (06:23→21:16)
[2022-09-24] MEDS: MIDODRINE HCL 10 MG TAB PO SCH ×3 (06:23→18:04)
[2022-09-24] MEDS: LEVOTHYROXINE SODIUM 112 MCG TAB PO SCH (07:17)
[2022-09-24] MEDS: SODIUM CHLORIDE 0.9% 1,000 ML IV SCH ×2 (07:45→17:55)
[2022-09-24] MEDS: MAGNESIUM OXIDE 400 MG TAB PO SCH (10:00)
[2022-09-24] MEDS: ALPRAZolam 0.5 MG TAB PO SCH ×2 (10:00→21:16)
[2022-09-24] MEDS: MIRTAZAPINE 30 MG TAB PO SCH (10:00)
[2022-09-24] MEDS: SODIUM CHLOR 0.9% PF (SALINE LOCK) 10ML VIAL/SYR IV SCH ×2 (10:11→21:16)
[2022-09-24] MEDS: PANTOPRAZOLE 40 MG/10 ML VIAL INJ IV SCH ×2 (10:11→21:16)
[2022-09-24] MEDS ORDERED: FUROSEMIDE 40 MG/4 ML VIAL IV ONE (13:30)
[2022-09-24] MEDS ORDERED: FUROSEMIDE 40 MG/4 ML VIAL ONE (13:35)
[2022-09-24 13:45] LABS: Urine Bacteria FEW /hpf (None Seen); Urine Blood 1+ /uL (Negative); Urine Specific Gravity 1.013 (1.001-1.035); Urine WBC 10 /hpf (0 - 5)
[2022-09-24] MEDS ORDERED: LIDOCAINE 2%HCL (LOCAL ANESTH.) INJ 20ML MDV ONE (14:23)
[2022-09-24] MEDS ORDERED: IODIXANOL 320MG/ML 100ML BTL IV ONE (14:23)
[2022-09-24] MEDS ORDERED: MIDAZOLAM HCL 2MG/2ML 2ml VIAL (1mg/ml) ONE (14:29)
[2022-09-24] MEDS ORDERED: fentaNYL CITRATE 100 MCG/2 ML VL ONE (14:29)
[2022-09-24] MEDS: NOREPINEPHRINE 8 MG/250ML KIT 250 ML IV SCH (14:45)
[2022-09-24] MEDS ORDERED: OXYCODONE W/ ACETAMINOPHEN 5/325MG TABLET PO PRN (17:45)
[2022-09-25] VITALS (43 sets, daily range): BP systolic 79–131; BP diastolic 43–75
[2022-09-25] MEDS: SODIUM CHLORIDE 0.9% 1,000 ML IV SCH ×3 (05:28→22:51)
[2022-09-25] MEDS: PREGABALIN CAPSULE 75 MG CAP PO SCH ×3 (05:36→21:16)
[2022-09-25] MEDS: MIDODRINE HCL 10 MG TAB PO SCH ×3 (05:36→18:22)
[2022-09-25] MEDS: LEVOTHYROXINE SODIUM 112 MCG TAB PO SCH (06:15)
[2022-09-25 06:35] LABS: Basophils # (auto) 0 10 ^3/uL (0-0.2); Basophils % (auto) 0.6 % (0.0-2.0); Eosinophils # (auto) 0.1 10 ^3/uL (0-0.8); Eosinophils % (auto) 1.4 % (0.0-7.0); Hematocrit 31.3 % (36.0-46.0); Hemoglobin 10.4 g/dL (12.2-16.2); Lymphocytes # (auto) 1.5 10 ^3/uL (0.4-5.4); Lymphocytes % (auto) 24.5 % (10.0-50.0); Mean Corpuscular Hemoglobin 32.8 pg (28.0-32.0); Mean Corpuscular Hgb Conc. 33.3 g/dL (32.0-36.0); Mean Corpuscular Volume 98.4 fL (80.0-100.0); Monocytes # (auto) 0.3 10 ^3/uL (0-1.3); Monocytes % (auto) 4.4 % (0.0-12.0); Neutrophils # (auto) 4.3 10 ^3/uL (1.6-8.6); Neutrophils % (auto) 69.1 % (37.0-80.0); Nucleated Red Blood Cells % 0.3 %; Red Blood Cells 3.18 10^6/uL (4.0-5.20); Red Cell Distribution Width 19.2 % (11.8-14.3); White Blood Cell 6.3 10^3/uL (4.4-10.8)
[2022-09-25 06:42] LABS: INR 1.43 (0.9-1.15); Partial Thromboplastin Time 33.2 sec (24.6-33.4)
[2022-09-25 06:52] LABS: BUN/Creatinine Ratio 15.8 (10.0-20.0); Bilirubin, Total 0.6 mg/dL (0.2-1.0); Calcium 6.8 mg/dL (8.5-10.1); Total Protein 3.1 g/dL (6.4-8.2)
[2022-09-25 06:56] LABS: Albumin 0.9 g/dL (3.4-5.0)
[2022-09-25] MEDS: OCTREOTIDE ACETATE 500 MCG in SODIUM CHL 0.9% 99 ML IV SCH (06:57)
[2022-09-25] MEDS ORDERED: LIDOCAINE 2%HCL (LOCAL ANESTH.) INJ 10ml MDV ONE (07:53)
[2022-09-25] MEDS ORDERED: ALBUMIN 25% 100 ML IV ONE (08:45)
[2022-09-25] MEDS: PANTOPRAZOLE 40 MG/10 ML VIAL INJ IV SCH ×2 (09:52→21:16)
[2022-09-25] MEDS: ALPRAZolam 0.5 MG TAB PO SCH (09:54)
[2022-09-25] MEDS: MIRTAZAPINE 30 MG TAB PO SCH (09:54)
[2022-09-25] MEDS: SODIUM CHLOR 0.9% PF (SALINE LOCK) 10ML VIAL/SYR IV SCH ×2 (09:56→21:16)
[2022-09-25] MEDS: MAGNESIUM OXIDE 400 MG TAB PO SCH (10:00)
[2022-09-25] MEDS: NOREPINEPHRINE 8 MG/250ML KIT 250 ML IV SCH (11:24)
[2022-09-25] MEDS ORDERED: cefTRIAXone 1GM/50ML D5W 50 ML IV ONE (14:45)
[2022-09-25 17:00] LABS: Hematocrit 24.6 % (36.0-46.0)
[2022-09-25] MEDS: Pro-Stat SF 30ml Vanilla PO SCH (18:00)
[2022-09-25] MEDS: Ensure HIGH Protein Vanilla 8oz Bottle PO SCH ×2 (18:00→21:16)
[2022-09-25] MEDS: ALPRAZolam 0.5 MG TAB PO PRN (21:55)
[2022-09-26] VITALS (11 sets, daily range): BP systolic 101–141; BP diastolic 58–81
[2022-09-26 05:12] LABS: Basophils # (auto) 0 10 ^3/uL (0-0.2); Eosinophils # (auto) 0.1 10 ^3/uL (0-0.8); Hemoglobin 8.9 g/dL (12.2-16.2); Lymphocytes # (auto) 1.8 10 ^3/uL (0.4-5.4); Lymphocytes % (auto) 43.9 % (10.0-50.0); Mean Corpuscular Volume 99.9 fL (80.0-100.0); Monocytes # (auto) 0.3 10 ^3/uL (0-1.3); Monocytes % (auto) 8.1 % (0.0-12.0); Neutrophils # (auto) 1.8 10 ^3/uL (1.6-8.6); Nucleated Red Blood Cells % 0.1 %; Red Blood Cells 2.71 10^6/uL (4.0-5.20); Red Cell Distribution Width 19.7 % (11.8-14.3); White Blood Cell 4.1 10^3/uL (4.4-10.8)
[2022-09-26 05:13] LABS: BUN/Creatinine Ratio 12.8 (10.0-20.0); Calcium 6.4 mg/dL (8.5-10.1)
[2022-09-26] MEDS: Ensure HIGH Protein Vanilla 8oz Bottle PO SCH ×4 (05:54→21:34)
[2022-09-26] MEDS: PREGABALIN CAPSULE 75 MG CAP PO SCH ×3 (06:10→21:34)
[2022-09-26] MEDS: LEVOTHYROXINE SODIUM 112 MCG TAB PO SCH (06:10)
[2022-09-26] MEDS: MIDODRINE HCL 10 MG TAB PO SCH ×3 (06:10→19:04)
[2022-09-26] MEDS: cefTRIAXone 1GM/50ML D5W 50 ML IV SCH (09:17)
[2022-09-26] MEDS: PANTOPRAZOLE 40 MG/10 ML VIAL INJ IV SCH ×2 (09:17→21:34)
[2022-09-26] MEDS: Pro-Stat SF 30ml Vanilla PO SCH ×3 (09:17→18:00)
[2022-09-26] MEDS: MAGNESIUM OXIDE 400 MG TAB PO SCH (09:18)
[2022-09-26] MEDS: MIRTAZAPINE 30 MG TAB PO SCH (09:18)
[2022-09-26] MEDS: SODIUM CHLOR 0.9% PF (SALINE LOCK) 10ML VIAL/SYR IV SCH ×2 (09:18→21:34)
[2022-09-26] MEDS: SODIUM CHLORIDE 0.9% 1,000 ML IV SCH ×2 (09:18→10:45)
[2022-09-26] MEDS: ALPRAZolam 0.5 MG TAB PO PRN (21:38)
[2022-09-27 05:00] VITALS: BP 107/61
[2022-09-27] MEDS: Ensure HIGH Protein Vanilla 8oz Bottle PO SCH ×3 (06:00→18:00)
[2022-09-27] MEDS: PREGABALIN CAPSULE 75 MG CAP PO SCH ×2 (06:06→14:21)
[2022-09-27] MEDS: SODIUM CHLORIDE 0.9% 1,000 ML IV SCH (06:06)
[2022-09-27] MEDS: LEVOTHYROXINE SODIUM 112 MCG TAB PO SCH (06:06)
[2022-09-27] MEDS: MIDODRINE HCL 10 MG TAB PO SCH ×3 (06:06→18:00)
[2022-09-27] MEDS: Pro-Stat SF 30ml Vanilla PO SCH ×3 (08:00→18:00)
[2022-09-27] MEDS ORDERED: LIDOCAINE 2%HCL (LOCAL ANESTH.) INJ 10ml MDV ONE (08:30)
[2022-09-27 09:00] VITALS: BP 106/59
[2022-09-27] MEDS: cefTRIAXone 1GM/50ML D5W 50 ML IV SCH (09:01)
[2022-09-27] MEDS: PANTOPRAZOLE 40 MG/10 ML VIAL INJ IV SCH (09:17)
[2022-09-27] MEDS: MAGNESIUM OXIDE 400 MG TAB PO SCH (09:33)
[2022-09-27] MEDS ORDERED: MIDAZOLAM HCL 2MG/2ML 2ml VIAL (1mg/ml) IV ONE (09:45)
[2022-09-27] MEDS ORDERED: fentaNYL CITRATE 100 MCG/2 ML VL IV ONE (09:45)
[2022-09-27] MEDS: MIRTAZAPINE 30 MG TAB PO SCH (10:00)
[2022-09-27 12:36] VITALS: BP 91/55
[2022-09-27] MEDS: SODIUM CHLOR 0.9% PF (SALINE LOCK) 10ML VIAL/SYR IV SCH (14:22)
[2022-09-27] MEDS ORDERED: APIX5TAB PO (14:23)
[2022-09-27] MEDS ORDERED: MID10T PO (14:23)
[2022-09-27] MEDS ORDERED: PANT40T PO (14:23)
[2022-09-27] MEDS ORDERED: SUCR1TAB22 PO (14:23)
[2022-09-27] MEDS ORDERED: FERR-7 PO (14:24)
[2022-09-27 16:07] VITALS: BP 128/72
[2022-09-27 16:47] VITALS: BP 108/53
== END 2022-09-27 18:44 | disposition home health service (06) | DRG 253 ==
LOC: EDBD 11:39 → ER 11:39 → TELE 17:36 → TELE-WESTW 09-24 14:14 → DOU IN ICU 09-24 17:35 → ICU CENTRL 09-25 23:09 → TELE-WESTW 09-26 12:06
PROVIDERS: ADMIT Registered Nurse; ATTEND Hospitalist
PROC: 30233N1 Transfusion of Nonautologous Red Blood Cells into Peripheral Vein, Percutaneous Approach (ICD-10-PCS; principal; 2022-09-23)
PROC: 02HV33Z Insertion of Infusion Device into Superior Vena Cava, Percutaneous Approach (ICD-10-PCS; 2022-09-23)
PROC: B548ZZA Ultrasonography of Superior Vena Cava, Guidance (ICD-10-PCS; 2022-09-23)
PROC: 06H03DZ Insertion of Intraluminal Device into Inferior Vena Cava, Percutaneous Approach (ICD-10-PCS; 2022-09-24)
PROC: 07DR3ZX Extraction of Iliac Bone Marrow, Percutaneous Approach, Diagnostic (ICD-10-PCS; 2022-09-27)
DX: K92.2 Gastrointestinal hemorrhage, unspecified (principal); N17.0 Acute kidney failure with tubular necrosis; E43 Unspecified severe protein-calorie malnutrition; D61.818 Other pancytopenia; R57.9 Shock, unspecified; I13.0 Hypertensive heart and chronic kidney disease with heart failure and stage 1 through stage 4 chronic kidney disease, or unspecified chronic kidney disease; I50.9 Heart failure, unspecified; J90 Pleural effusion, not elsewhere classified; E27.40 Unspecified adrenocortical insufficiency; D62 Acute posthemorrhagic anemia; J84.10 Pulmonary fibrosis, unspecified; E86.0 Dehydration; E03.9 Hypothyroidism, unspecified; E06.3 Autoimmune thyroiditis; K44.9 Diaphragmatic hernia without obstruction or gangrene; K64.9 Unspecified hemorrhoids; N18.9 Chronic kidney disease, unspecified; D50.9 Iron deficiency anemia, unspecified; K21.9 Gastro-esophageal reflux disease without esophagitis; D75.89 Other specified diseases of blood and blood-forming organs; I25.2 Old myocardial infarction; Z79.01 Long term (current) use of anticoagulants; Z82.49 Family history of ischemic heart disease and other diseases of the circulatory system; Z82.5 Family history of asthma and other chronic lower respiratory diseases; Z86.711 Personal history of pulmonary embolism; Z83.3 Family history of diabetes mellitus; Z85.42 Personal history of malignant neoplasm of other parts of uterus; Z86.718 Personal history of other venous thrombosis and embolism; Z86.73 Personal history of transient ischemic attack (TIA), and cerebral infarction without residual deficits; Z68.22 Body mass index [BMI] 22.0-22.9, adult; Z95.828 Presence of other vascular implants and grafts; Z87.01 Personal history of pneumonia (recurrent); Z90.710 Acquired absence of both cervix and uterus; Z98.84 Bariatric surgery status; Z90.49 Acquired absence of other specified parts of digestive tract
CPT/HCPCS: 10005; 36415; 36569; 37191; 37619; 71250; 72192; 74176; 76775; 76856; 76937; 76942; 77012; 78582; 80048; 80053; 81001; 82270; 83010; 83615; 83880; 84484; 85014; 85018; 85025; 85045; 85610; 85730; 86038; 86850; 86880; 86900; 86901; 86920; 87040; 87081; 93005; 93970; 96361; 96374; 99152; 99291; C1894; C9113; G0378; J0696; J2001; J2250; P9047; Q9967

== ENCOUNTER 2022-10-06 08:37 | Inpatient (IN) | payer MEDICAID ==
[~2022-10-06] VITALS: Ht 160 cm; Wt 59.3 kg
[2022-10-06] VITALS (7 sets, daily range): BP systolic 71–151; BP diastolic 18–94
[~2022-10-06 08:37] MED LIST changes: +FERR-7 PO; -HYDR10T PO; -POTA8TAB15 PO; -PREG-111 PO
[2022-10-06] MEDS ORDERED: SODIUM CHLORIDE 0.9% 1,000 ML IV ONE (09:00)
[2022-10-06] MEDS ORDERED: DEXTROSE (50%) 50ML SYRG IV PRN ×2 (09:30→13:00)
[2022-10-06 09:31] LABS: Basophils # (auto) 0 10 ^3/uL (0-0.2); Basophils % (auto) 0.3 % (0.0-2.0); Eosinophils # (auto) 0.1 10 ^3/uL (0-0.8); Eosinophils % (auto) 1.4 % (0.0-7.0); Hemoglobin 7.3 g/dL (12.2-16.2); Lymphocytes # (auto) 1.5 10 ^3/uL (0.4-5.4); Lymphocytes % (auto) 33.7 % (10.0-50.0); Mean Corpuscular Hemoglobin 32.4 pg (28.0-32.0); Mean Corpuscular Hgb Conc. 31.6 g/dL (32.0-36.0); Mean Corpuscular Volume 102.4 fL (80.0-100.0); Monocytes # (auto) 0.1 10 ^3/uL (0-1.3); Neutrophils # (auto) 2.7 10 ^3/uL (1.6-8.6); Neutrophils % (auto) 61.6 % (37.0-80.0); Nucleated Red Blood Cells % 0.2 %; Red Blood Cells 2.25 10^6/uL (4.0-5.20); White Blood Cell 4.3 10^3/uL (4.4-10.8)
[2022-10-06 09:49] LABS: Calcium 6.6 mg/dL (8.5-10.1); Magnesium 1.9 mg/dL (1.6-2.6); Potassium 3.7 mmol/L (3.5-5.1)
[2022-10-06 09:52] LABS: Bilirubin, Total 0.7 mg/dL (0.2-1.0); Total Protein 2.7 g/dL (6.4-8.2)
[2022-10-06 10:03] LABS: Albumin 0.6 g/dL (3.4-5.0)
[2022-10-06] MEDS ORDERED: ALBUMIN 25% 100 ML IV ONE ×2 (11:00→17:45)
[2022-10-06] MEDS: NOREPINEPHRINE 8 MG/250ML KIT 250 ML IV SCH (11:49)
[2022-10-06] MEDS ORDERED: PANTOPRAZOLE 40 MG/10 ML VIAL INJ IV ONE (12:00)
[2022-10-06] MEDS ORDERED: NITROGLYCERIN 0.4 MG SL TAB SL PRN (12:00)
[2022-10-06] MEDS ORDERED: MORPHINE SULFATE INJ 2 MG/ml SYRG IV PRN (12:00)
[2022-10-06 12:19] LABS: Lactic Acid w/Reflex 5.9 mmol/L (0.4-2.0)
[2022-10-06] MEDS ORDERED: VANCOMYCIN PER PHARMACY 0 MG IV SCH (12:45)
[2022-10-06] MEDS ORDERED: CEFEPIME 1GM/ 50ML 50 ML IV ONE (12:45)
[2022-10-06] MEDS: SUCRALFATE 1 GM TAB PO SCH ×3 (12:58→21:56)
[2022-10-06] MEDS: MIDODRINE HCL 10 MG TAB PO SCH ×2 (12:58→18:27)
[2022-10-06] MEDS ORDERED: ALBUTEROL SULF 2.5 MG/0.5ML(0.5%) NEB SOLN NEB PRN (13:15)
[2022-10-06 13:17] LABS: INR > 8.0 (0.9-1.15); Partial Thromboplastin Time 58.9 sec (24.6-33.4)
[2022-10-06] MEDS ORDERED: HYDROCORTISONE SOD SUCC 100 MG/2ML INJ VIAL IV ONE (13:30)
[2022-10-06] MEDS: PHENYLEPHRINE IV 250 ML IV SCH ×2 (13:35→21:18)
[2022-10-06] MEDS: VASOPRESSIN 20 UNITS in SODIUM CHL 0.9% 99 ML IV SCH (14:21)
[2022-10-06] MEDS: VANCOMYCIN 500 MG in D5W 5% 100 ML IV SCH (14:22)
[2022-10-06] MEDS: ACETAMINOPHEN 325 MG TAB PO PRN ×2 (14:32→23:08)
[2022-10-06] MEDS ORDERED: SODIUM CHLORIDE 0.9% 1,250 ML IV ONE (15:45)
[2022-10-06] MEDS: InsuLIN REG 1unit/0.01ml Soln (100units/ml) SC SCH ×3 (16:00→23:50)
[2022-10-06] MEDS: ACCU-CHEK COMFORT CURVE STRIP VI SCH ×3 (16:08→23:50)
[2022-10-06 18:00] LABS: Basophils # (auto) 0 10 ^3/uL (0-0.2); Basophils % (auto) 0.2 % (0.0-2.0); Eosinophils # (auto) 0 10 ^3/uL (0-0.8); Eosinophils % (auto) 0.4 % (0.0-7.0); Hematocrit 25.3 % (36.0-46.0); Hemoglobin 8.2 g/dL (12.2-16.2); Lymphocytes # (auto) 1.3 10 ^3/uL (0.4-5.4); Lymphocytes % (auto) 39.4 % (10.0-50.0); Mean Corpuscular Hemoglobin 32.4 pg (28.0-32.0); Mean Corpuscular Hgb Conc. 32.2 g/dL (32.0-36.0); Mean Corpuscular Volume 100.5 fL (80.0-100.0); Monocytes # (auto) 0.1 10 ^3/uL (0-1.3); Monocytes % (auto) 1.6 % (0.0-12.0); Neutrophils # (auto) 1.9 10 ^3/uL (1.6-8.6); Neutrophils % (auto) 58.4 % (37.0-80.0); Nucleated Red Blood Cells % 0.6 %; Red Blood Cells 2.52 10^6/uL (4.0-5.20); Red Cell Distribution Width 16.9 % (11.8-14.3); White Blood Cell 3.2 10^3/uL (4.4-10.8)
[2022-10-06 18:29] LABS: Lactic Acid w/Reflex 7.6 mmol/L (0.4-2.0)
[2022-10-06] MEDS: DOCUSATE SOD 100 MG CAP PO SCH (21:56)
[2022-10-06] MEDS ORDERED: APIXABAN 5 MG TAB PO SCH (22:00)
[2022-10-06] MEDS ORDERED: HEPARIN SODIUM (PORCINE) 5000 UNITS/ML 1ML VIAL SC SCH (22:00)
[2022-10-06] MEDS ORDERED: HYDROCORTISONE SOD SUCC 100 MG/2ML INJ VIAL IV SCH (22:00)
[2022-10-07] VITALS (75 sets, daily range): BP systolic 0–221; BP diastolic 0–162
[2022-10-07] MEDS ORDERED: ALPRAZolam 0.5 MG TAB PO PRN (03:00)
[2022-10-07] MEDS ORDERED: OXYCODONE W/ ACETAMINOPHEN 5/325MG TABLET PO PRN (03:00)
[2022-10-07] MEDS: ACCU-CHEK COMFORT CURVE STRIP VI SCH ×5 (04:00→19:50)
[2022-10-07] MEDS: InsuLIN REG 1unit/0.01ml Soln (100units/ml) SC SCH ×5 (04:00→19:51)
[2022-10-07 04:38] LABS: Hematocrit 21.9 % (36.0-46.0); Hemoglobin 7.4 g/dL (12.2-16.2); Mean Corpuscular Hemoglobin 33.4 pg (28.0-32.0); Mean Corpuscular Hgb Conc. 33.7 g/dL (32.0-36.0); Mean Corpuscular Volume 99.1 fL (80.0-100.0); Red Cell Distribution Width 17.2 % (11.8-14.3); White Blood Cell 4.6 10^3/uL (4.4-10.8)
[2022-10-07 04:49] LABS: Albumin 1.8 g/dL (3.4-5.0); Calcium 6.1 mg/dL (8.5-10.1); Potassium 3.7 mmol/L (3.5-5.1)
[2022-10-07 04:50] LABS: Basophils % (manual) 0 (0.0-2.0); Blast Cells 0; Eosinophils % (manual) 0 (0-7); Metamyelocytes % 0; Myelocytes % 0; Promyelocytes % 0; Reactive Lymphocytes 0
[2022-10-07 04:54] LABS: BUN/Creatinine Ratio 9.1 (10.0-20.0); Bilirubin, Total 1.4 mg/dL (0.2-1.0); Total Protein 3.3 g/dL (6.4-8.2)
[2022-10-07 04:55] LABS: Lactic Acid w/Reflex 9.8 mmol/L (0.4-2.0)
[2022-10-07] MEDS: MIDODRINE HCL 10 MG TAB PO SCH ×3 (06:00→18:00)
[2022-10-07] MEDS: SUCRALFATE 1 GM TAB PO SCH ×4 (06:00→22:00)
[2022-10-07] MEDS ORDERED: SODIUM BICARBONATE 8.4 % INJ 50ML VIAL IV ONE (06:45)
[2022-10-07] MEDS ORDERED: LEVOTHYROXINE SODIUM 50 MCG TAB PO SCH (07:00)
[2022-10-07] MEDS: PHENYLEPHRINE IV 250 ML IV SCH ×6 (07:57→18:34)
[2022-10-07] MEDS: VASOPRESSIN 20 UNITS in SODIUM CHL 0.9% 99 ML IV SCH ×2 (07:58→18:45)
[2022-10-07 08:22] LABS: Band Neutrophils % (manual) 7; Lymphocytes % (manual) 26 (10.0-50.0); Monocytes % (manual) 3 (0-12)
[2022-10-07] MEDS: DOCUSATE SOD 100 MG CAP PO SCH ×2 (10:00→22:00)
[2022-10-07] MEDS ORDERED: FERROUS SULFATE 325mg EC TAB PO SCH (10:00)
[2022-10-07] MEDS ORDERED: MIRTAZAPINE 30 MG TAB PO SCH (10:00)
[2022-10-07] MEDS ORDERED: MAGNESIUM OXIDE 400 MG TAB PO SCH (10:00)
[2022-10-07] MEDS ORDERED: PANTOPRAZOLE 40 MG/10 ML VIAL INJ IV SCH (10:00)
[2022-10-07] MEDS ORDERED: CEFEPIME 1GM/ 50ML 50 ML IV SCH (10:00)
[2022-10-07] MEDS: NOREPINEPHRINE 8 MG/250ML KIT 250 ML IV SCH ×3 (10:17→19:44)
[2022-10-07] MEDS: EPINEPHrine HCL 250 ML IV SCH ×2 (12:41→19:44)
[2022-10-07 12:44] LABS: Monocytes # (auto) 0.1 10 ^3/uL (0-1.3); Nucleated Red Blood Cells % 0.3 %
[2022-10-07 12:46] LABS: Basophils # (auto) 0 10 ^3/uL (0-0.2); Basophils % (auto) 0.6 % (0.0-2.0); Eosinophils # (auto) 0.2 10 ^3/uL (0-0.8); Eosinophils % (auto) 3.1 % (0.0-7.0); Lymphocytes # (auto) 1.1 10 ^3/uL (0.4-5.4); Lymphocytes % (auto) 21.3 % (10.0-50.0); Mean Corpuscular Hemoglobin 32.4 pg (28.0-32.0); Mean Corpuscular Hgb Conc. 31.9 g/dL (32.0-36.0); Mean Corpuscular Volume 101.4 fL (80.0-100.0); Monocytes % (auto) 1.3 % (0.0-12.0); Neutrophils # (auto) 3.9 10 ^3/uL (1.6-8.6); Neutrophils % (auto) 73.7 % (37.0-80.0); Red Blood Cells 2.17 10^6/uL (4.0-5.20); White Blood Cell 5.3 10^3/uL (4.4-10.8)
[2022-10-07 13:05] LABS: Lactic Acid w/Reflex 11.3 mmol/L (0.4-2.0)
[2022-10-07] MEDS ORDERED: SODIUM BICARBONATE 50ML VIAL 150 ML in D5W 5% 1,000 ML IV ONE (15:15)
[2022-10-07] MEDS: VANCOMYCIN 500 MG in D5W 5% 100 ML IV SCH (16:00)
[2022-10-07] MEDS ORDERED: DOPamine 1600MCG/ML D5W 250 ML IV ONE (16:26)
[2022-10-07] MEDS ORDERED: DOPamine 1600MCG/ML D5W 250 ML IV SCH (16:30)
[2022-10-07] MEDS ORDERED: LORazepam 2MG/ML-1ML VIAL IV PRN (22:00)
[2022-10-07] MEDS ORDERED: MORPHINE SULFATE INJ 2 MG/ml SYRG IV PRN (22:00)
== END 2022-10-08 01:40 | DRG 720 ==
LOC: EDBD 08:37 → ER 08:37 → TELE 12:00 → ICU WEST 23:44
PROVIDERS: ADMIT Nurse Practitioner Family; ATTEND Internal Medicine Pulmonary Disease
PROC: 06HY33Z Insertion of Infusion Device into Lower Vein, Percutaneous Approach (ICD-10-PCS; principal; 2022-10-06)
PROC: 30233K1 Transfusion of Nonautologous Frozen Plasma into Peripheral Vein, Percutaneous Approach (ICD-10-PCS; 2022-10-06)
PROC: 30233N1 Transfusion of Nonautologous Red Blood Cells into Peripheral Vein, Percutaneous Approach (ICD-10-PCS; 2022-10-06)
PROC: 5A09357 Assistance with Respiratory Ventilation, Less than 24 Consecutive Hours, Continuous Positive Airway Pressure (ICD-10-PCS; 2022-10-07)
DX: A41.9 Sepsis, unspecified organism (principal); N17.0 Acute kidney failure with tubular necrosis; J96.01 Acute respiratory failure with hypoxia; R65.21 Severe sepsis with septic shock; R57.1 Hypovolemic shock; E46 Unspecified protein-calorie malnutrition; I13.0 Hypertensive heart and chronic kidney disease with heart failure and stage 1 through stage 4 chronic kidney disease, or unspecified chronic kidney disease; J18.9 Pneumonia, unspecified organism; E88.09 Other disorders of plasma-protein metabolism, not elsewhere classified; I50.40 Unspecified combined systolic (congestive) and diastolic (congestive) heart failure; K92.2 Gastrointestinal hemorrhage, unspecified; Z66 Do not resuscitate; E03.9 Hypothyroidism, unspecified; F41.9 Anxiety disorder, unspecified; E78.5 Hyperlipidemia, unspecified; N18.4 Chronic kidney disease, stage 4 (severe); J44.9 Chronic obstructive pulmonary disease, unspecified; D64.9 Anemia, unspecified; Z90.710 Acquired absence of both cervix and uterus; I25.2 Old myocardial infarction; Z86.711 Personal history of pulmonary embolism; Z86.73 Personal history of transient ischemic attack (TIA), and cerebral infarction without residual deficits; Z90.49 Acquired absence of other specified parts of digestive tract; Z68.23 Body mass index [BMI] 23.0-23.9, adult; Z83.3 Family history of diabetes mellitus; Z82.5 Family history of asthma and other chronic lower respiratory diseases; Z82.3 Family history of stroke; Z80.9 Family history of malignant neoplasm, unspecified; Z85.42 Personal history of malignant neoplasm of other parts of uterus; Z86.718 Personal history of other venous thrombosis and embolism; Z87.11 Personal history of peptic ulcer disease; J44.0 Chronic obstructive pulmonary disease with (acute) lower respiratory infection
CPT/HCPCS: 36415; 36556; 36600; 71045; 80053; 82270; 82805; 82962; 83605; 83735; 83880; 84484; 85007; 85025; 85027; 85610; 85730; 86850; 86900; 86901; 86920; 87040; 87081; 93005; 94640; 94660; 96361; 96365; 96375; C9113; G0378; J0171; J7060; P9047